=== PATIENT | female | born 1935 | race Caucasian/White ===

== ENCOUNTER 2018-01-28 16:01 | Inpatient (IN) | payer MEDICARE, MEDICAID ==
[~2018-01-28] VITALS: Ht 170.2 cm; Wt 130.0 kg
[~2018-01-28 16:01] MED LIST: DIPH1TAB PO; HYDR-4383 PO; INSU100V13 SQ; LOSA1TAB41 PO; PANT40TA4 PO; PROP20TA6 PO; SPIIN INH
[2018-01-28 16:30] LABS: HEMATOCRIT 39.2 % (35.0-45.0); HEMOGLOBIN 12.9 g/dl (12.0-16.0); MEAN CORPUSCULAR VOLUME 82.6 FL (78-98); RED BLOOD COUNT 4.74 X10'6 (4.20-5.60); WHITE BLOOD COUNT 9.8 X10'3 (4.5-11.0)
[2018-01-28 16:31] LABS: BASOPHILS % (AUTO) 0.4 % (0-1); EOSINOPHILS # (AUTO) 0.4 X10'3 (0-0.9); EOSINOPHILS % (AUTO) 3.6 % (0-6); LYMPHOCYTES # (AUTO) 1.8 X10'3 (1.1-4.8); MEAN CORPUSCULAR HEMOGLOBIN 27.2 PG (27.0-31.0); MONOCYTES # (AUTO) 0.5 X10'3 (0-0.9); NEUTROPHILS # (AUTO) 7.1 X10'3 (1.8-7.7); PLATELET COUNT 308 X10'3 (140-440)
[2018-01-28 16:38] LABS: ALANINE AMINOTRANSFERASE 19 U/L (12-78); ALBUMIN 3.3 G/DL (3.4-5.0); ALBUMIN/GLOBULIN RATIO 0.8 (1.1-1.5); ALKALINE PHOSPHATASE 110 IU/L (46-116); ANION GAP 9 (8-16); ASPARTATE AMINO TRANSFERASE 11 U/L (10-37); BILIRUBIN,TOTAL 0.3 MG/DL (0.1-1.0); BLOOD UREA NITROGEN 18 MG/DL (7-18); CALCIUM 9.1 MG/DL (8.5-10.1); CHLORIDE 103 MMOL/L (99-107); GLUCOSE 182 MG/DL (70-104); SODIUM 138 MMOL/L (135-145); TOTAL PROTEIN 7.2 G/DL (6.4-8.2); eGFR 60 ML/MIN
[2018-01-28 16:50] LABS: PARTIAL THROMBOPLASTIN TIME 28 SECONDS (22-32)
[2018-01-28] MEDS ORDERED: aspirin 81mg tab.chew PO ONE (16:55)
[2018-01-28] MEDS ORDERED: nitroGLYCERIN 0.4mg SUBLingual tab SL PRN ×2 (16:55→17:45)
[2018-01-28] MEDS ORDERED: ondansetron/PF 4mg/2ml inj IV PRN (17:10)
[2018-01-28] MEDS ORDERED: potassium Cl 40MEQ/NS 500ml 500 ML IV PRN ×2 (17:10)
[2018-01-28] MEDS ORDERED: magnesium 4gm in 100ml NS 100 ML IV PRN (17:10)
[2018-01-28] MEDS ORDERED: magnesium hydroxide 30ml (MOM) UD suspension PO PRN (17:10)
[2018-01-28] MEDS ORDERED: morphine 2 MG/ML inj. syringe IV PRN (17:10)
[2018-01-28] MEDS ORDERED: magnesium Cl slow-release 64mg tablet PO PRN (17:10)
[2018-01-28] MEDS ORDERED: potassium Cl 20 mEq SR tablet PO PRN ×2 (17:10)
[2018-01-28] MEDS ORDERED: acetaminophen 325mg tablet PO PRN (17:10)
[2018-01-28] MEDS ORDERED: mag hydrox/Alum hydrox/simeth 30ml oral suspension PO PRN (17:10)
[2018-01-28] MEDS: losartan 50mg tablet PO SCH (17:15)
[2018-01-28] MEDS ORDERED: insulin Lispro (HumaLOG) vial - multi-dose SQ SCH (17:20)
[2018-01-28] MEDS ORDERED: glucagon, human recombinant 1mg kit SUBCUT PRN (17:20)
[2018-01-28] MEDS ORDERED: MESSAGE TO PHARMACY PO ONE (17:20)
[2018-01-28] MEDS ORDERED: dextrose ORAL solution 15 GM/59 ML bottle PO PRN ×2 (17:20)
[2018-01-28] MEDS ORDERED: dextrose 50%-water 50ml dispensing syringe IV PRN ×2 (17:20)
[2018-01-28] MEDS ORDERED: LANTUS SQ (17:32)
[2018-01-28] MEDS ORDERED: DOXE25CA3 PO (17:37)
[2018-01-28] MEDS ORDERED: INSU100V9 SQ (17:39)
[2018-01-28] MEDS ORDERED: LEVE500T PO (17:40)
[2018-01-28] MEDS ORDERED: FAMO40TA58 PO (17:43)
[2018-01-28] MEDS ORDERED: HYDR25TA4 PO (17:43)
[2018-01-28] MEDS ORDERED: METO25TA6 PO (17:43)
[2018-01-28] MEDS ORDERED: POTA10TA15 PO (17:44)
[2018-01-28] MEDS ORDERED: CITA10TA9 PO (17:44)
[2018-01-28] MEDS ORDERED: aminophylline 250mg/10ml inj. IV PRN (17:45)
[2018-01-28] MEDS ORDERED: metoprolol tartrate 1mg/ml inj IV PRN (17:45)
[2018-01-28] MEDS ORDERED: regadenoson 0.4mg/5ml syringe IV PRN (17:45)
[2018-01-28] MEDS ORDERED: HYDR100T27 PO (17:46)
[2018-01-28] MEDS ORDERED: LORA0.5T PO (17:46)
[2018-01-28] MEDS: carVEDilol 12.5mg tablet PO SCH ×2 (18:18→20:00)
[2018-01-28 19:22] LABS: HEMOGLOBIN A1C 7.2 % (4.5-6.2)
[2018-01-28] MEDS ORDERED: VARE0.5T PO (19:58)
[2018-01-28 20:00] VITALS: BP 137/55
[2018-01-28] MEDS ORDERED: insulin glargine (Lantus) pen - multi-dose SQ SCH ×2 (21:00→23:25)
[2018-01-28] MEDS: heparin, porcine 5000 units/ml vial SQ SCH (22:51)
[2018-01-28 23:00] VITALS: BP 140/54
[2018-01-29] VITALS (14 sets, daily range): BP systolic 118–191; BP diastolic 44–68
[2018-01-29] MEDS: varenicline tartrate 0.5mg tablet PO SCH ×2 (00:14→08:24)
[2018-01-29] MEDS: HYDROcodone/acetaminophen 5mg/325mg tablet PO PRN ×2 (00:25→06:14)
[2018-01-29 04:37] LABS: HEMATOCRIT 33.5 % (35.0-45.0); HEMOGLOBIN 11.9 g/dl (12.0-16.0); RED BLOOD COUNT 4.08 X10'6 (4.20-5.60); WHITE BLOOD COUNT 9.6 X10'3 (4.5-11.0)
[2018-01-29 04:38] LABS: BASOPHILS # (AUTO) 0.1 X10'3 (0-0.2); EOSINOPHILS # (AUTO) 0.4 X10'3 (0-0.9); LYMPHOCYTES # (AUTO) 2.1 X10'3 (1.1-4.8); MEAN CORPUSCULAR HGB CONC 35.4 % (33.0-36.5); MEAN PLATELET VOLUME 8.1 FL (7.4-10.4); MONOCYTES # (AUTO) 0.6 X10'3 (0-0.9); MONOCYTES % (AUTO) 6.4 % (2-12); NEUTROPHILS # (AUTO) 6.4 X10'3 (1.8-7.7); NEUTROPHILS % (AUTO) 66.6 % (42-75); PLATELET COUNT 236 X10'3 (140-440); RED CELL DISTRIBUTION WIDTH 15.8 % (11.5-14.5)
[2018-01-29 04:58] LABS: ALANINE AMINOTRANSFERASE 17 U/L (12-78); ALBUMIN/GLOBULIN RATIO 0.9 (1.1-1.5); ALKALINE PHOSPHATASE 94 IU/L (46-116); ANION GAP 9 (8-16); ASPARTATE AMINO TRANSFERASE 14 U/L (10-37); BILIRUBIN,TOTAL 0.2 MG/DL (0.1-1.0); BLOOD UREA NITROGEN 24 MG/DL (7-18); BUN/CREATININE RATIO 26.1 (6.6-38.0); CALCIUM 9.1 MG/DL (8.5-10.1); CHLORIDE 103 MMOL/L (99-107); CREATININE 0.92 MG/DL (0.40-0.90); GLUCOSE 89 MG/DL (70-104); POTASSIUM 3.8 MMOL/L (3.5-5.1); SODIUM 138 MMOL/L (135-145); TOTAL CARBON DIOXIDE 25.6 MMOL/L (24-32); TOTAL PROTEIN 6.5 G/DL (6.4-8.2); eGFR 59 ML/MIN
[2018-01-29 05:01] LABS: MAGNESIUM 1.8 MG/DL (1.5-2.4); PHOSPHORUS 3.8 MG/DL (2.3-4.5)
[2018-01-29] MEDS ORDERED: K and/or MAG REPLACEMENT MC SCH (08:00)
[2018-01-29] MEDS: heparin, porcine 5000 units/ml vial SQ SCH (08:25)
[2018-01-29] MEDS ORDERED: aspirin 81mg tab.chew PO SCH (08:30)
[2018-01-29] MEDS ORDERED: regadenoson 0.4mg/5ml syringe IV ONE (09:36)
[2018-01-29] MEDS ORDERED: aminophylline inj. 10 ML IV ONE (09:36)
[2018-01-29] MEDS: carVEDilol 12.5mg tablet PO SCH (11:13)
[2018-01-29] MEDS: losartan 50mg tablet PO SCH (11:14)
[2018-01-29] MEDS ORDERED: hydrALAZINE 20mg/ml inj. IV ONE (12:35)
[2018-01-29] MEDS ORDERED: insulin glargine (Lantus) pen - multi-dose SQ SCH (20:00)
== END 2018-01-29 13:36 | disposition home health service (06) | DRG 313 ==
LOC: ER 16:02 → ED HOLD 17:09 → PCU 3S 20:23
PROVIDERS: ADMIT Internal Medicine; ATTEND Family Medicine
PROC: 4A02XM4 Measurement of Cardiac Total Activity, External Approach (ICD-10-PCS; principal; 2018-01-29)
PROC: 3E033HZ Introduction of Radioactive Substance into Peripheral Vein, Percutaneous Approach (ICD-10-PCS; 2018-01-29)
DX: R07.89 Other chest pain (principal); F41.9 Anxiety disorder, unspecified; E11.9 Type 2 diabetes mellitus without complications; F17.200 Nicotine dependence, unspecified, uncomplicated; G89.4 Chronic pain syndrome; M54.9 Dorsalgia, unspecified; I10 Essential (primary) hypertension; J44.9 Chronic obstructive pulmonary disease, unspecified; Z95.0 Presence of cardiac pacemaker; Z88.8 Allergy status to other drugs, medicaments and biological substances; Z79.899 Other long term (current) drug therapy; Z79.4 Long term (current) use of insulin; Z87.440 Personal history of urinary (tract) infections; Z86.73 Personal history of transient ischemic attack (TIA), and cerebral infarction without residual deficits
CPT/HCPCS: 36415; 71045; 78452; 80053; 82948; 83036; 83735; 83880; 84100; 84484; 85025; 85610; 85730; 87070; 93005; 93017; 93306; 94760; 99285; A9500; G0378; J0280; J1644; J1815

== ENCOUNTER 2018-06-29 12:04 | Emergency (ER) | payer MEDICARE, MEDICAID ==
[~2018-06-29] VITALS: Ht 162.6 cm; Wt 107.0 kg
[~2018-06-29 12:04] MED LIST changes: +CITA10TA9 PO; -DIPH1TAB PO; +DOXE25CA3 PO; +FAMO40TA58 PO; +HYDR100T27 PO; +HYDR25TA4 PO; +INSU100V9 SQ; +LANTUS SQ; +LEVE500T PO; +LORA0.5T PO; -LOSA1TAB41 PO; +METO25TA6 PO; +POTA10TA15 PO; -PROP20TA6 PO; -SPIIN INH; +VARE0.5T PO
[2018-06-29 13:06] LABS: BASOPHILS # (AUTO) 0.1 X10'3 (0-0.2); BASOPHILS % (AUTO) 0.8 % (0-1); EOSINOPHILS # (AUTO) 0.3 X10'3 (0-0.9); EOSINOPHILS % (AUTO) 2.9 % (0-6); HEMATOCRIT 37.9 % (35.0-45.0); HEMOGLOBIN 12.4 g/dl (12.0-16.0); LYMPHOCYTES # (AUTO) 2.2 X10'3 (1.1-4.8); LYMPHOCYTES % (AUTO) 20.3 % (21-51); MEAN CORPUSCULAR HEMOGLOBIN 27.4 PG (27.0-31.0); MEAN CORPUSCULAR HGB CONC 32.6 g/dL (33.0-36.5); MEAN CORPUSCULAR VOLUME 84.1 FL (78-98); MEAN PLATELET VOLUME 8.1 FL (7.4-10.4); MONOCYTES # (AUTO) 0.7 X10'3 (0-0.9); NEUTROPHILS # (AUTO) 7.7 X10'3 (1.8-7.7); PLATELET COUNT 245 X10'3 (140-440); RED BLOOD COUNT 4.51 X10'6 (4.20-5.60); RED CELL DISTRIBUTION WIDTH 17.7 % (11.5-14.5)
[2018-06-29 13:12] LABS: PARTIAL THROMBOPLASTIN TIME 22 SECONDS (22-32)
[2018-06-29 13:14] LABS: ALANINE AMINOTRANSFERASE 20 U/L (12-78); ALBUMIN 3.4 G/DL (3.4-5.0); ALBUMIN/GLOBULIN RATIO 0.8 (1.1-1.5); ALKALINE PHOSPHATASE 104 IU/L (46-116); ANION GAP 8 (8-16); ASPARTATE AMINO TRANSFERASE 15 U/L (10-37); BILIRUBIN,TOTAL 0.3 MG/DL (0.1-1.0); BLOOD UREA NITROGEN 19 MG/DL (7-18); BUN/CREATININE RATIO 15.6 (6.6-38.0); CALCIUM 9.7 MG/DL (8.5-10.1); CHLORIDE 104 MMOL/L (99-107); CREATININE 1.22 MG/DL (0.40-0.90); GLUCOSE 173 MG/DL (70-104); POTASSIUM 4.2 MMOL/L (3.5-5.1); SODIUM 139 MMOL/L (135-145); TOTAL PROTEIN 7.6 G/DL (6.4-8.2); eGFR 42 ML/MIN
[2018-06-29 13:20] LABS: MAGNESIUM 1.8 MG/DL (1.5-2.4)
[2018-06-29 13:28] VITALS: BP 153/76
--- NOTE | 2018-06-29 13:28 | NUR ---
RELIEVING RN FOR LUNCH, PT IS SITTING UP ON EDGE OF STEPHEN, RESP EVEN AND UNLABORED, TALKING FULL SENTENCES, DR MARCELO AT BEDSIDE TO EVALUATE PT
[2018-06-29] MEDS ORDERED: ipratropium/albuterol 3ml nebule NEB ONE (13:35)
[2018-06-29] MEDS ORDERED: ALBU18HF2 IH (14:16)
== END 2018-06-29 14:39 | disposition home or self-care (01) ==
LOC: ER 12:04
DX: R06.02 Shortness of breath (principal); R05 Cough; M79.89 Other specified soft tissue disorders; I10 Essential (primary) hypertension; E11.9 Type 2 diabetes mellitus without complications; G89.29 Other chronic pain; M54.9 Dorsalgia, unspecified; F17.200 Nicotine dependence, unspecified, uncomplicated; Z86.73 Personal history of transient ischemic attack (TIA), and cerebral infarction without residual deficits; Z95.0 Presence of cardiac pacemaker; Z88.8 Allergy status to other drugs, medicaments and biological substances; Z79.4 Long term (current) use of insulin
CPT/HCPCS: 36415; 71045; 80053; 82948; 83735; 83880; 84484; 85025; 85610; 85730; 93005; 94640; 99284

== ENCOUNTER 2018-12-24 19:58 | Inpatient (IN) | payer MEDICARE, MEDICAID ==
[~2018-12-24] VITALS: Ht 162.6 cm; Wt 109.1 kg
[~2018-12-24 19:58] MED LIST changes: +ALBU18HF2 IH
[2018-12-24] MEDS ORDERED: normal saline 1000ML IV soln IV ONE (21:30)
[2018-12-24] MEDS ORDERED: clindamycin 600mg/D5W 50ml 50 ML IV ONE (21:50)
[2018-12-24 22:12] LABS: BASOPHILS % (AUTO) 0.3 % (0-1); EOSINOPHILS # (AUTO) 0.1 X10'3 (0-0.9); EOSINOPHILS % (AUTO) 0.5 % (0-6); HEMATOCRIT 41.1 % (35.0-45.0); HEMOGLOBIN 13.4 g/dl (12.0-16.0); LYMPHOCYTES # (AUTO) 0.9 X10'3 (1.1-4.8); LYMPHOCYTES % (AUTO) 6.4 % (21-51); MEAN CORPUSCULAR HEMOGLOBIN 27.8 PG (27.0-31.0); MEAN CORPUSCULAR HGB CONC 32.7 g/dL (33.0-36.5); MEAN CORPUSCULAR VOLUME 85.1 FL (78-98); MEAN PLATELET VOLUME 7.8 FL (7.4-10.4); MONOCYTES # (AUTO) 0.5 X10'3 (0-0.9); MONOCYTES % (AUTO) 3.5 % (2-12); NEUTROPHILS # (AUTO) 12.6 X10'3 (1.8-7.7); NEUTROPHILS % (AUTO) 89.3 % (42-75); PLATELET COUNT 243 X10'3 (140-440); RED BLOOD COUNT 4.82 X10'6 (4.20-5.60); RED CELL DISTRIBUTION WIDTH 17.7 % (11.5-14.5); WHITE BLOOD COUNT 14.1 X10'3 (4.5-11.0)
[2018-12-24 22:27] LABS: ALANINE AMINOTRANSFERASE 16 U/L (12-78); ALBUMIN 3.4 G/DL (3.4-5.0); ALBUMIN/GLOBULIN RATIO 0.8 (1.1-1.5); ALKALINE PHOSPHATASE 112 IU/L (46-116); ANION GAP 6 (8-16); ASPARTATE AMINO TRANSFERASE 14 U/L (10-37); BILIRUBIN,TOTAL 0.4 MG/DL (0.1-1.0); BLOOD UREA NITROGEN 18 MG/DL (7-18); BUN/CREATININE RATIO 18.6 (6.6-38.0); CALCIUM 9.1 MG/DL (8.5-10.1); CHLORIDE 102 MMOL/L (99-107); CREATININE 0.97 MG/DL (0.40-0.90); GLUCOSE 127 MG/DL (70-104); POTASSIUM 4.5 MMOL/L (3.5-5.1); SODIUM 138 MMOL/L (135-145); TOTAL CARBON DIOXIDE 29.7 MMOL/L (24-32); TOTAL PROTEIN 7.8 G/DL (6.4-8.2); eGFR 55 ML/MIN
[2018-12-24] MEDS ORDERED: iohexol 300mg/ml 100ml inj. ONE (22:32)
[2018-12-24] MEDS ORDERED: normal saline 1000ML IV soln IVB ONE (22:40)
[2018-12-25] MEDS ORDERED: HYDR-4070 PO (01:57)
[2018-12-25] MEDS ORDERED: NITR0.4T48 SL (01:57)
[2018-12-25] MEDS ORDERED: ASPI-1264 PO (01:57)
[2018-12-25] MEDS ORDERED: FURO-150 PO (01:57)
[2018-12-25] MEDS ORDERED: LOSA1TAB41 PO (01:57)
[2018-12-25] MEDS ORDERED: VIT1CAPS46 PO (01:57)
[2018-12-25] MEDS ORDERED: MELO-102 PO (01:57)
[2018-12-25] MEDS ORDERED: MYCOL30CR TP (01:57)
[2018-12-25] MEDS ORDERED: normal saline 1000ml 1,000 ML IV SCH (02:03)
[2018-12-25] MEDS ORDERED: magnesium hydroxide 30ml (MOM) UD suspension PO PRN (02:05)
[2018-12-25] MEDS ORDERED: mag hydrox/Alum hydrox/simeth 30ml oral suspension PO PRN (02:05)
[2018-12-25] MEDS ORDERED: ondansetron/PF 4mg/2ml inj IV PRN (02:05)
[2018-12-25] MEDS ORDERED: acetaminophen 325mg tablet PO PRN (02:05)
[2018-12-25] MEDS ORDERED: potassium Cl 20 mEq SR tablet PO PRN ×2 (02:05)
[2018-12-25] MEDS ORDERED: HYDROcodone/acetaminophen 5mg/325mg tablet PO PRN (02:05)
[2018-12-25] MEDS ORDERED: dextrose 50%-water 50ml dispensing syringe IV PRN ×2 (02:10)
[2018-12-25] MEDS ORDERED: glucagon, human recombinant 1mg kit SUBCUT PRN (02:10)
[2018-12-25] MEDS ORDERED: insulin Lispro (HumaLOG) vial - multi-dose SQ SCH (02:10)
[2018-12-25] MEDS ORDERED: nitroGLYCERIN 0.4mg SUBLingual tab SL PRN (02:10)
[2018-12-25] MEDS ORDERED: dextrose ORAL solution 15 GM/59 ML bottle PO PRN ×2 (02:10)
[2018-12-25] MEDS ORDERED: MESSAGE TO PHARMACY PO ONE (02:10)
[2018-12-25 03:00] VITALS: BP 147/55
--- NOTE | 2018-12-25 03:00 | NUR ---
PT ARRIVED TO 4023B FROM ER. PT HAS BEEN ORIENTED TO THE ROOM. VSS. RECEIVED REPRORT FROM LOU FRAUSTO PRIOR TO PT'S ARRIVAL.
[2018-12-25 03:50] LABS: HEMOGLOBIN A1C 6.5 % (4.5-6.2)
[2018-12-25 06:00] VITALS: BP 140/44
--- NOTE | 2018-12-25 06:22 | NUR ---
Problems reprioritized. Patient report given, questions answered & plan of care reviewed with LOU ROMERO.
--- NOTE | 2018-12-25 06:54 | NUR ---
Patient in room ORTHO 4023. I have received report from Anneliese BLAKE and had the opportunity to ask questions and assume patient care.
[2018-12-25] MEDS: K and/or MAG REPLACEMENT MC SCH (07:46)
[2018-12-25] MEDS: levetiracetam 250mg tablet PO SCH ×2 (07:56→19:41)
[2018-12-25] MEDS: furosemide 20MG tablet PO SCH (07:56)
[2018-12-25] MEDS: hydrALAZINE 25 MG tablet PO SCH ×2 (07:56→15:45)
[2018-12-25] MEDS: aspirin 325mg tablet PO SCH ×2 (07:56→19:41)
[2018-12-25] MEDS: CITALOpram 10mg tablet PO SCH (07:57)
[2018-12-25] MEDS: HYDROchlorothiazide 12.5mg capsule PO SCH (07:57)
[2018-12-25] MEDS: potassium chloride 10mEq ER tablet PO SCH (07:58)
[2018-12-25] MEDS: famotidine 20mg tablet PO SCH (07:58)
[2018-12-25] MEDS: metoprolol tartrate 25mg tablet PO SCH ×2 (07:58→19:41)
[2018-12-25] MEDS: losartan 50mg tablet PO SCH (07:58)
[2018-12-25] MEDS: heparin, porcine 5000 units/ml vial SQ SCH ×2 (08:00→19:42)
[2018-12-25] MEDS: clindamycin 600mg/D5W 50ml 50 ML IV SCH ×3 (08:01→19:40)
[2018-12-25 10:00] VITALS: BP 141/46
[2018-12-25 10:24] LABS: BASOPHILS % (AUTO) 0.3 % (0-1); EOSINOPHILS # (AUTO) 0.1 X10'3 (0-0.9); EOSINOPHILS % (AUTO) 0.8 % (0-6); HEMATOCRIT 36.5 % (35.0-45.0); HEMOGLOBIN 11.8 g/dl (12.0-16.0); LYMPHOCYTES # (AUTO) 1.3 X10'3 (1.1-4.8); LYMPHOCYTES % (AUTO) 10.5 % (21-51); MEAN CORPUSCULAR HEMOGLOBIN 27.6 PG (27.0-31.0); MEAN CORPUSCULAR HGB CONC 32.4 g/dL (33.0-36.5); MEAN PLATELET VOLUME 7.6 FL (7.4-10.4); MONOCYTES # (AUTO) 0.9 X10'3 (0-0.9); MONOCYTES % (AUTO) 6.9 % (2-12); NEUTROPHILS # (AUTO) 10.3 X10'3 (1.8-7.7); NEUTROPHILS % (AUTO) 81.5 % (42-75); PLATELET COUNT 259 X10'3 (140-440); RED BLOOD COUNT 4.29 X10'6 (4.20-5.60); RED CELL DISTRIBUTION WIDTH 17.4 % (11.5-14.5); WHITE BLOOD COUNT 12.7 X10'3 (4.5-11.0)
[2018-12-25 10:39] LABS: ALANINE AMINOTRANSFERASE 12 U/L (12-78); ALBUMIN 2.8 G/DL (3.4-5.0); ALBUMIN/GLOBULIN RATIO 0.7 (1.1-1.5); ALKALINE PHOSPHATASE 94 IU/L (46-116); ANION GAP 4 (8-16); ASPARTATE AMINO TRANSFERASE 8 U/L (10-37); BILIRUBIN,TOTAL 0.6 MG/DL (0.1-1.0); BLOOD UREA NITROGEN 16 MG/DL (7-18); BUN/CREATININE RATIO 15.1 (6.6-38.0); CALCIUM 8.8 MG/DL (8.5-10.1); CHLORIDE 103 MMOL/L (99-107); CREATININE 1.06 MG/DL (0.40-0.90); GLUCOSE 157 MG/DL (70-104); POTASSIUM 4.4 MMOL/L (3.5-5.1); SODIUM 138 MMOL/L (135-145); TOTAL CARBON DIOXIDE 31.2 MMOL/L (24-32); TOTAL PROTEIN 6.8 G/DL (6.4-8.2); eGFR 50 ML/MIN
--- NOTE | 2018-12-25 10:46 | NUR ---
Student documentation: I have reviewed all interventions, assessments performed and [facility] Student Medication Administration: For this medication-pass time frame, all medication were reviewed, dispensed, administered and documented per hospital policy [facility].
[2018-12-25] MEDS: HYDROcodone/acetaminophen 10/325mg tab PO PRN ×2 (12:01→19:41)
[2018-12-25] MEDS ORDERED: nicotine 14mg patch - 24hr TD PRN (13:50)
[2018-12-25 18:00] VITALS: BP 139/48
--- NOTE | 2018-12-25 18:28 | NUR ---
Problems reprioritized. Patient report given, questions answered & plan of care reviewed with Selvin BLAKE.
--- NOTE | 2018-12-25 18:30 | NUR ---
Received report from Connor BLAKE pt is up walking with aide back to bed from the bathroom
[2018-12-25] MEDS: lactobacillus rhamnosus 10,000 MMU CELLS/CAPSULE PO SCH (19:40)
[2018-12-25] MEDS: insulin glargine (Lantus) pen - multi-dose SQ SCH (21:00)
[2018-12-25 22:00] VITALS: BP 124/51
[2018-12-26] MEDS: hydrALAZINE 25 MG tablet PO SCH ×3 (00:19→17:28)
[2018-12-26] MEDS: clindamycin 600mg/D5W 50ml 50 ML IV SCH ×4 (01:54→19:35)
[2018-12-26] MEDS: HYDROcodone/acetaminophen 10/325mg tab PO PRN ×4 (04:59→19:42)
[2018-12-26 06:00] VITALS: BP 126/42
[2018-12-26 06:10] LABS: BASOPHILS % (AUTO) 0.3 % (0-1); EOSINOPHILS # (AUTO) 0.2 X10'3 (0-0.9); EOSINOPHILS % (AUTO) 2.3 % (0-6); HEMOGLOBIN 11.6 g/dl (12.0-16.0); LYMPHOCYTES # (AUTO) 1.6 X10'3 (1.1-4.8); LYMPHOCYTES % (AUTO) 17.3 % (21-51); MEAN CORPUSCULAR HEMOGLOBIN 28.2 PG (27.0-31.0); MEAN CORPUSCULAR HGB CONC 33.1 g/dL (33.0-36.5); MEAN CORPUSCULAR VOLUME 85.1 FL (78-98); MEAN PLATELET VOLUME 7.9 FL (7.4-10.4); MONOCYTES # (AUTO) 0.8 X10'3 (0-0.9); MONOCYTES % (AUTO) 8.1 % (2-12); NEUTROPHILS # (AUTO) 6.8 X10'3 (1.8-7.7); PLATELET COUNT 233 X10'3 (140-440); RED BLOOD COUNT 4.11 X10'6 (4.20-5.60); RED CELL DISTRIBUTION WIDTH 17.7 % (11.5-14.5); WHITE BLOOD COUNT 9.5 X10'3 (4.5-11.0)
--- NOTE | 2018-12-26 06:27 | NUR ---
Gave report to Lulu BLAKE pt is resting on 2L of O2 via NC in no apparent distress, breaths even and unlabored
[2018-12-26 06:37] LABS: ALANINE AMINOTRANSFERASE 13 U/L (12-78); ALBUMIN 2.9 G/DL (3.4-5.0); ALBUMIN/GLOBULIN RATIO 0.7 (1.1-1.5); ALKALINE PHOSPHATASE 95 IU/L (46-116); ANION GAP 6 (8-16); ASPARTATE AMINO TRANSFERASE 11 U/L (10-37); BILIRUBIN,TOTAL 0.5 MG/DL (0.1-1.0); BLOOD UREA NITROGEN 24 MG/DL (7-18); BUN/CREATININE RATIO 22.2 (6.6-38.0); CALCIUM 8.9 MG/DL (8.5-10.1); CHLORIDE 102 MMOL/L (99-107); CREATININE 1.08 MG/DL (0.40-0.90); GLUCOSE 81 MG/DL (70-104); POTASSIUM 3.8 MMOL/L (3.5-5.1); SODIUM 138 MMOL/L (135-145); TOTAL CARBON DIOXIDE 29.6 MMOL/L (24-32); TOTAL PROTEIN 7.1 G/DL (6.4-8.2); eGFR 49 ML/MIN
[2018-12-26] MEDS: K and/or MAG REPLACEMENT MC SCH (08:00)
[2018-12-26] MEDS: famotidine 20mg tablet PO SCH (08:01)
[2018-12-26] MEDS: aspirin 325mg tablet PO SCH ×2 (08:01→19:36)
[2018-12-26] MEDS: losartan 50mg tablet PO SCH (08:01)
[2018-12-26] MEDS: CITALOpram 10mg tablet PO SCH (08:02)
[2018-12-26] MEDS: furosemide 20MG tablet PO SCH (08:02)
[2018-12-26] MEDS: HYDROchlorothiazide 12.5mg capsule PO SCH (08:03)
[2018-12-26] MEDS: potassium chloride 10mEq ER tablet PO SCH (08:03)
[2018-12-26] MEDS: lactobacillus rhamnosus 10,000 MMU CELLS/CAPSULE PO SCH ×2 (08:04→19:43)
[2018-12-26] MEDS: levetiracetam 250mg tablet PO SCH ×2 (08:04→19:37)
[2018-12-26] MEDS: metoprolol tartrate 25mg tablet PO SCH ×2 (08:16→19:41)
[2018-12-26] MEDS: heparin, porcine 5000 units/ml vial SQ SCH ×2 (08:18→19:42)
[2018-12-26 09:49] VITALS: BP 136/51
[2018-12-26 18:00] VITALS: BP 130/50
--- NOTE | 2018-12-26 18:25 | NUR ---
Problems reprioritized. Patient report given, questions answered & plan of care reviewed with Lizz Celeste RN.
[2018-12-26] MEDS: insulin glargine (Lantus) pen - multi-dose SQ SCH (21:00)
[2018-12-26 22:00] VITALS: BP 105/32
--- NOTE | 2018-12-27 00:13 | NUR ---
PATIENT HAS BP OF 100/26 HR 61 PAGER ID: [phone] MESSAGE: PLEASE CALL JALNY AT EXT [phone] RE: [id number] MEDICATION QUESTION STATED TO HOLD MEDICATION AT THIS TIME, BUT TO ADDRESS PLACING PARAMETERS WITH AM HOSPITALIST.
[2018-12-27] MEDS: clindamycin 600mg/D5W 50ml 50 ML IV SCH ×3 (01:55→14:00)
--- NOTE | 2018-12-27 02:44 | NUR ---
reviewed and agree with SRN assessment
--- NOTE | 2018-12-27 05:55 | NUR ---
When tech attempted to take AM vitals, pt became agitated and began stating that she feels that she doesnt want to trust staff. Pt became agitated with any attempts to provide care. Attempted to place oxygen, pt refused. Attempted to asses as to whether IV had infiltrated and pt also refused. Pt refused to return to bed. Charge nurse called daughter and had pt speak to daughter. Pt verbally assaultive towards staff.
[2018-12-27 06:00] VITALS: BP 136/44
--- NOTE | 2018-12-27 06:26 | NUR ---
Problems reprioritized. Patient report given, questions answered & plan of care reviewed with LOU Rai .
[2018-12-27] MEDS: K and/or MAG REPLACEMENT MC SCH (08:00)
[2018-12-27 10:00] VITALS: BP 154/79
[2018-12-27] MEDS: hydrALAZINE 25 MG tablet PO SCH ×2 (10:17)
[2018-12-27] MEDS: furosemide 20MG tablet PO SCH (10:17)
[2018-12-27] MEDS: famotidine 20mg tablet PO SCH (10:18)
[2018-12-27] MEDS: aspirin 325mg tablet PO SCH (10:18)
[2018-12-27] MEDS: heparin, porcine 5000 units/ml vial SQ SCH (10:19)
[2018-12-27] MEDS: CITALOpram 10mg tablet PO SCH (10:19)
[2018-12-27 10:23] VITALS: BP_SYST 154
[2018-12-27] MEDS: potassium chloride 10mEq ER tablet PO SCH (10:23)
[2018-12-27] MEDS: HYDROcodone/acetaminophen 10/325mg tab PO PRN ×2 (10:23→14:09)
[2018-12-27] MEDS: metoprolol tartrate 25mg tablet PO SCH (10:23)
[2018-12-27] MEDS: HYDROchlorothiazide 12.5mg capsule PO SCH (10:23)
[2018-12-27] MEDS: losartan 50mg tablet PO SCH (10:24)
[2018-12-27] MEDS: levetiracetam 250mg tablet PO SCH (10:24)
[2018-12-27] MEDS: lactobacillus rhamnosus 10,000 MMU CELLS/CAPSULE PO SCH (10:25)
--- NOTE | 2018-12-27 14:23 | NUR ---
PAGER ID: [phone] MESSAGE: SOURAV [phone] RE KATRIN BARBER IN 4020B, IV INFILTRATED CAN WE SWITCH ABX TO PO? THANK YOU.
[2018-12-27] MEDS ORDERED: clindamycin 150mg capsule PO ONE (14:30)
[2018-12-27] MEDS ORDERED: NICO-631 TD (15:04)
[2018-12-27] MEDS ORDERED: CLE150C PO (15:04)
--- NOTE | 2018-12-27 15:37 | NUR ---
called in rx's to [address]
== END 2018-12-27 15:54 | disposition home or self-care (01) | DRG 158 ==
LOC: ER 19:59 → ED HOLD 12-25 02:17 → EDBEDREQ 12-25 02:24 → CMPBEDREQ 12-25 02:39 → ORTHO 4S 12-25 02:40
PROVIDERS: ADMIT Internal Medicine; ATTEND Family Medicine
PROC: BN251ZZ Computerized Tomography (CT Scan) of Facial Bones using Low Osmolar Contrast (ICD-10-PCS; principal; 2018-12-24)
DX: K04.7 Periapical abscess without sinus (principal); L03.211 Cellulitis of face; E11.69 Type 2 diabetes mellitus with other specified complication; I25.10 Atherosclerotic heart disease of native coronary artery without angina pectoris; E11.22 Type 2 diabetes mellitus with diabetic chronic kidney disease; F17.200 Nicotine dependence, unspecified, uncomplicated; F32.9 Major depressive disorder, single episode, unspecified; R09.02 Hypoxemia; M19.90 Unspecified osteoarthritis, unspecified site; M54.9 Dorsalgia, unspecified; E11.21 Type 2 diabetes mellitus with diabetic nephropathy; K21.9 Gastro-esophageal reflux disease without esophagitis; G89.29 Other chronic pain; I12.9 Hypertensive chronic kidney disease with stage 1 through stage 4 chronic kidney disease, or unspecified chronic kidney disease; N18.9 Chronic kidney disease, unspecified; R13.10 Dysphagia, unspecified; Z79.4 Long term (current) use of insulin; Z79.82 Long term (current) use of aspirin; Z79.899 Other long term (current) drug therapy; Z86.011 Personal history of benign neoplasm of the brain; Z86.73 Personal history of transient ischemic attack (TIA), and cerebral infarction without residual deficits; Z95.0 Presence of cardiac pacemaker; Z88.8 Allergy status to other drugs, medicaments and biological substances
CPT/HCPCS: 36415; 70487; 71045; 80053; 82948; 83036; 83605; 85025; 85610; 87040; 87081; 96361; 96365; 97112; 97116; 97161; 97530; 99285; G0378; J1644; J1815; J2405; J3490; J7030; Q9967

== ENCOUNTER 2019-02-24 07:43 | Emergency (ER) | payer MEDICARE, MEDICAID ==
[~2019-02-24] VITALS: Ht 170.2 cm; Wt 109.1 kg
[~2019-02-24 07:43] MED LIST changes: -ALBU18HF2 IH; +ASPI-1264 PO; +CLE150C PO; -DOXE25CA3 PO; +FURO-150 PO; +HYDR-4070 PO; -HYDR100T27 PO; -LORA0.5T PO; +LOSA1TAB41 PO; +MYCOL30CR TP; +NICO-631 TD; +NITR0.4T48 SL; -VARE0.5T PO; +VIT1CAPS46 PO
[2019-02-24] MEDS ORDERED: TETanus/Pertussis (Acell)/Diphther VAC/PF (Tdap-Adult) 0.5ml syringe IMVAC ONE (08:15)
[2019-02-24] MEDS ORDERED: BUPIVAcaine/PF 7.5 mg/ml (0.75%) 30ml vial IJ ONE (08:15)
[2019-02-24] MEDS ORDERED: BUPIVAcaine/PF 2.5mg/ml (0.25%) 10ml vial IJ ONE (08:25)
[2019-02-24] MEDS ORDERED: LORazepam 2 mg/ml vial IM ONE (09:25)
[2019-02-24] MEDS ORDERED: fentaNYL/PF 50MCG/1 ML 2ML syringe IM ONE (09:25)
--- NOTE | 2019-02-24 09:59 | NUR ---
PA NOTIFIED OF BP
[2019-02-24 11:39] LABS: BASOPHILS # (AUTO) 0.1 X10'3 (0-0.2); BASOPHILS % (AUTO) 0.5 % (0-1); EOSINOPHILS # (AUTO) 0.1 X10'3 (0-0.9); EOSINOPHILS % (AUTO) 0.7 % (0-6); HEMATOCRIT 39.6 % (35.0-45.0); HEMOGLOBIN 12.9 g/dl (12.0-16.0); LYMPHOCYTES % (AUTO) 6.8 % (21-51); MEAN CORPUSCULAR HEMOGLOBIN 27.1 PG (27.0-31.0); MEAN CORPUSCULAR HGB CONC 32.6 g/dL (33.0-36.5); MEAN PLATELET VOLUME 7.8 FL (7.4-10.4); MONOCYTES # (AUTO) 0.8 X10'3 (0-0.9); MONOCYTES % (AUTO) 5.3 % (2-12); NEUTROPHILS # (AUTO) 12.9 X10'3 (1.8-7.7); NEUTROPHILS % (AUTO) 86.7 % (42-75); PLATELET COUNT 272 X10'3 (140-440); RED BLOOD COUNT 4.77 X10'6 (4.20-5.60); RED CELL DISTRIBUTION WIDTH 18.2 % (11.5-14.5); WHITE BLOOD COUNT 14.9 X10'3 (4.5-11.0)
[2019-02-24] MEDS ORDERED: CLINDAMYCIN/D5W 900mg/50ml 50 ML IV ONE (11:40)
[2019-02-24 11:53] LABS: ALANINE AMINOTRANSFERASE 22 U/L (12-78); ALBUMIN 3.5 G/DL (3.4-5.0); ALBUMIN/GLOBULIN RATIO 0.8 (1.1-1.5); ALKALINE PHOSPHATASE 117 IU/L (46-116); ANION GAP 8 (8-16); ASPARTATE AMINO TRANSFERASE 16 U/L (10-37); BILIRUBIN,TOTAL 0.6 MG/DL (0.1-1.0); BLOOD UREA NITROGEN 15 MG/DL (7-18); BUN/CREATININE RATIO 15.2 (6.6-38.0); CALCIUM 9.3 MG/DL (8.5-10.1); CHLORIDE 101 MMOL/L (99-107); CREATININE 0.99 MG/DL (0.40-0.90); GLUCOSE 94 MG/DL (70-104); POTASSIUM 4.2 MMOL/L (3.5-5.1); SODIUM 139 MMOL/L (135-145); TOTAL CARBON DIOXIDE 29.8 MMOL/L (24-32); TOTAL PROTEIN 7.8 G/DL (6.4-8.2); eGFR 54 ML/MIN
[2019-02-24] MEDS ORDERED: dexamethasone sod phosphate 10mg/ml inj IV STA (12:14)
[2019-02-24] MEDS ORDERED: CefTRIAXone 2gm/D5W 50ml 50 ML IV ONE (12:15)
[2019-02-24] MEDS ORDERED: sterile talc powder 5 GM, BUPIVAcaine 0.5% inj/PF 37.5 MG in normal saline 50ml IV soln... IPL ONE (12:15)
[2019-02-24] MEDS ORDERED: BUPIVAcaine 0.5% inj/PF 30 ml vial IJ ONE (12:25)
[2019-02-24] MEDS ORDERED: NICO-731 TOP (13:34)
[2019-02-24] MEDS ORDERED: LEVO150T8 PO (13:35)
[2019-02-24] MEDS ORDERED: INSU100V9 SQ (13:39)
[2019-02-24] MEDS ORDERED: ATOR40TA72 PO (13:39)
[2019-02-24] MEDS ORDERED: NYSPWD PO (13:39)
[2019-02-24] MEDS ORDERED: CLIN150C8 PO (13:42)
[2019-02-24] MEDS ORDERED: DEXA6TAB6 PO (13:42)
--- NOTE | 2019-02-24 14:06 | NUR ---
CALLED PHARMACY FOR CLEOCIN IV
--- NOTE | 2019-02-24 14:09 | NUR ---
JUST RECEIVED CLEOCIN FROM PHARMACY
[2019-02-24 15:28] VITALS: BP 134/62
--- NOTE | 2019-02-24 15:29 | NUR ---
REVIEW DC INSTRUCTIONS WITH PT AND FAMILY AND CAREGIVER. ASSIST PT WITH GETTING DRESSED AND THEN INTO A W/C. HEAT AND VENT AIRCRAFT MECHANIC IN ROOM TO TAKE PT OUT TO CARE VIA W/C.
== END 2019-02-24 15:33 | disposition home or self-care (01) ==
LOC: ER 07:44
DX: K04.7 Periapical abscess without sinus (principal); R22.0 Localized swelling, mass and lump, head; I10 Essential (primary) hypertension; E11.9 Type 2 diabetes mellitus without complications; G89.29 Other chronic pain; Z88.8 Allergy status to other drugs, medicaments and biological substances; Z79.2 Long term (current) use of antibiotics; Z79.4 Long term (current) use of insulin; Z79.899 Other long term (current) drug therapy
CPT/HCPCS: 36415; 41800; 70486; 71045; 80053; 83605; 84145; 85025; 87040; 90471; 90715; 96365; 96367; 96372; 96375; 99285; J0696; J1100; J2060; J3010; J3490

== ENCOUNTER 2021-08-31 07:53 | Inpatient (IN) | payer MEDICARE, MEDICAID ==
[~2021-08-31] VITALS: Ht 154.9 cm; Wt 98.9 kg
[~2021-08-31 07:53] MED LIST changes: -ASPI-1264 PO; +ATOR40TA72 PO; -CITA10TA9 PO; +CITA10TA93 PO; -CLE150C PO; +CLIN150C8 PO; +DEXA6TAB6 PO; -INSU100V13 SQ; -LANTUS SQ; +LEVO150T8 PO; +LOP25T PO; -METO25TA6 PO; -MYCOL30CR TP; -NICO-631 TD; +NICO-731 TOP; +NYSPWD PO; -PANT40TA4 PO; +PANT40TA54 PO
[2021-08-31] MEDS ORDERED: normal saline 1000ml 1,000 ML IV ONE (08:15)
[2021-08-31 08:52] LABS: ABG BASE EXCESS -2.5 mmol/L (-2.0-2.0); ABG HCO3 19.8 mmol/L (22.0-26.0); ABG PCO2 (T) 29.2 mmHg (32.0-45.0); ABG PO2 (T) 70.7 mmHg (75.0-100.0); ALLEN'S TEST POSITIVE; FCOHb 0.3 % (0.0-3.9); FLOW 3 L/min; FMetHb 0.2 % (0.0-1.5); FO2Hb 92.5 % (94-97); PATIENT TEMPERATURE 37.9; TOTAL HEMOGLOBIN 14.9 G/dl (12.0-16.0)
--- NOTE | 2021-08-31 08:57 | NUR ---
PT RECIVIED 1L OF N.S ENROUTE AND PT HAS TEMP OF 100.3. PER DR MCLAIN HOLD THE IV FLUID AND HE WILL ORDER TYLENOL.
[2021-08-31] MEDS ORDERED: acetaminophen 325mg tablet PO ONE (09:00)
[2021-08-31 09:33] LABS: BASOPHILS % (AUTO) 0.1 % (0-1); EOSINOPHILS % (AUTO) 0 % (0-6); HEMATOCRIT 41.9 % (35.0-45.0); LYMPHOCYTES # (AUTO) 0.5 X10'3 (1.1-4.8); MEAN CORPUSCULAR HEMOGLOBIN 28.5 PG (27.0-31.0); MEAN CORPUSCULAR HGB CONC 33.5 g/dL (33.0-36.5); MEAN PLATELET VOLUME 8.6 FL (7.4-10.4); MONOCYTES # (AUTO) 0.6 X10'3 (0-0.9); MONOCYTES % (AUTO) 4.9 % (2-12); NEUTROPHILS # (AUTO) 10.9 X10'3 (1.8-7.7); PLATELET COUNT 194 X10'3 (140-440); RED BLOOD COUNT 4.93 X10'6 (4.20-5.60); RED CELL DISTRIBUTION WIDTH 16.7 % (11.5-14.5)
[2021-08-31 09:43] LABS: D-DIMER 2.72 MG/L FEU (0-0.50)
[2021-08-31 10:03] LABS: ALANINE AMINOTRANSFERASE 27 U/L (12-78); ALBUMIN 2.6 G/DL (3.4-5.0); ALBUMIN/GLOBULIN RATIO 0.6 (1.1-1.5); ALKALINE PHOSPHATASE 69 IU/L (46-116); ANION GAP 13 (8-16); ASPARTATE AMINO TRANSFERASE 46 U/L (10-37); BILIRUBIN,TOTAL 0.7 MG/DL (0.1-1.0); BLOOD UREA NITROGEN 13 MG/DL (7-18); BUN/CREATININE RATIO 13.1 (6.6-38.0); CHLORIDE 100 MMOL/L (99-107); CREATININE 0.99 MG/DL (0.40-0.90); GLUCOSE 193 MG/DL (70-104); MAGNESIUM 1.9 MG/DL (1.5-2.4); POTASSIUM 3.5 MMOL/L (3.5-5.1); SODIUM 136 MMOL/L (135-145); TOTAL CARBON DIOXIDE 22.6 MMOL/L (24-32); TOTAL PROTEIN 7.2 G/DL (6.4-8.2); eGFR 53 ML/MIN
[2021-08-31 10:29] LABS: ANISOCYTOSIS 1+; PLATELET ESTIMATE NORMAL; TOTAL CELLS COUNTED 100
[2021-08-31] MEDS ORDERED: iohexol 350MG/ML 100ml bottle IV ONE (10:37)
--- NOTE | 2021-08-31 10:37 | NUR ---
NOTIFIED DR MCLAIN THAT PT IS POSITIVE FOR COVID.
[2021-08-31] MEDS ORDERED: dexamethasone sod phosphate 10mg/ml inj IV STA (10:38)
[2021-08-31] MEDS ORDERED: BEBTELOVIMAB 175 MG/2 ML VIAL IV ONE (10:40)
--- NOTE | 2021-08-31 11:06 | NUR ---
SPOKE TO [facility] TO VERIFY THE ANTIVIRAL MED{BEBTELOVIMAB} PT IS SICK FOR 4 DAYS ,REQUIRING 02 AND WILL BE ADMITTED TO THE HOSPITAL PER PHARMACIST THIS MEDICATION IS NOT RECOMMENED FOR THE PT ,NOTIFIED DR MCLAIN.VERBAL ORDER TO D/C THE MEDS.
[2021-08-31] MEDS ORDERED: enoxaparin 100mg/ml syringe SUBCUT ONE (13:00)
[2021-08-31] MEDS ORDERED: FAMO40TA58 PO (13:57)
[2021-08-31] MEDS ORDERED: POTA10CA44 PO (13:57)
[2021-08-31] MEDS ORDERED: PRIM50TA27 PO (13:57)
[2021-08-31] MEDS ORDERED: ASPI-10 PO (13:57)
[2021-08-31] MEDS ORDERED: ATOR40TA7 PO (13:57)
[2021-08-31] MEDS ORDERED: HYDR-3965 PO (13:57)
[2021-08-31] MEDS ORDERED: FURO-149 PO (13:57)
[2021-08-31] MEDS ORDERED: LOSA1TAB41 PO (13:57)
[2021-08-31] MEDS ORDERED: BETA1TAB20 PO (13:57)
[2021-08-31] MEDS ORDERED: NITR0.4T51 SL (13:57)
[2021-08-31] MEDS ORDERED: MYC15CR TOP (13:57)
[2021-08-31] MEDS ORDERED: METO25TA6 PO (13:57)
[2021-08-31] MEDS ORDERED: CITA-116 PO (13:57)
[2021-08-31] MEDS ORDERED: LEVE500T PO (13:57)
[2021-08-31] MEDS ORDERED: HYDR100T27 PO (13:57)
[2021-08-31] MEDS ORDERED: MELO-102 PO (13:57)
[2021-08-31] MEDS ORDERED: ondansetron/PF 4mg/2ml inj IV PRN (14:50)
[2021-08-31] MEDS ORDERED: PERFLUTREN PROTEIN-A MICROSPHR (Optison) 0.22 MG/ML 3ML VIAL IV ONE (14:50)
[2021-08-31] MEDS ORDERED: magnesium Cl slow-release 64mg tablet PO PRN (14:50)
[2021-08-31] MEDS ORDERED: acetaminophen 325mg tablet PO PRN (14:50)
[2021-08-31] MEDS ORDERED: POTASSIUM BICARB 20meq eff tab 20 MEQ TABLET.EFF PO PRN ×2 (14:50)
[2021-08-31] MEDS ORDERED: magnesium hydroxide 30ml (MOM) UD suspension PO PRN (14:50)
[2021-08-31] MEDS ORDERED: potassium CL 10mEq/100ml bag 100 ML IV PRN (14:50)
[2021-08-31] MEDS ORDERED: magnesium 4gm in 100ml NS 100 ML IV PRN (14:50)
[2021-08-31] MEDS ORDERED: magnesium 2GM in 50ml NS 50 ML IV PRN (14:50)
[2021-08-31] MEDS ORDERED: mag hydrox/Alum hydrox/simeth 30ml oral suspension PO PRN (14:50)
[2021-08-31 16:28] LABS: CLARITY,URINE SLIGHTLY CLOUDY (Clear); COLOR,URINE YELLOW (Yellow); GLUCOSE, URINE NEGATIVE (Neg); KETONES,URINE 40 mg/dl (Neg); LEUKOCYTE ESTERASE ,URINE NEGATIVE (Neg); NITRITES, URINE POSITIVE (Neg); OCCULT BLOOD,URINE MODERATE (Neg); PROTEIN,URINE >=300 mg/dl (Neg); UROBILINOGEN,URINE 0.2 E.U/dL (0.2-1.0)
[2021-08-31 16:30] LABS: UA COLLECTION TYPE VOIDED
[2021-08-31 16:36] LABS: BACTERIA,URINE 4+ /HPF (Neg); MUCUS STRANDS FEW /LPF (Neg); RBC,URINE 0-2 /HPF (0-2); RENAL CELLS, URINE FEW /HPF; SQUAMOUS EPITHELIAL CELL,UR FEW /LPF (FEW)
[2021-08-31 16:37] LABS: HYALINE CASTS 0-3 /LPF (NEGATIVE)
[2021-08-31 16:45] LABS: MAGNESIUM 1.7 MG/DL (1.5-2.4); POTASSIUM 3.5 MMOL/L (3.5-5.1)
[2021-08-31] MEDS ORDERED: nitroGLYCERIN 0.4mg SUBLingual tab SL PRN (16:45)
[2021-08-31] MEDS ORDERED: furosemide 40mg tablet PO PRN (16:45)
--- NOTE | 2021-08-31 17:29 | NUR ---
CALLED PHARMACY TO VERIFY PT HOME MEDS AND SCHEDULE THE ANTIHYPERTENSIVE MEDS FOR RGT NOW PT BP IS HIGH AND SHE HAS MISSED HER DOSE TODAY.
[2021-08-31] MEDS: CefTRIAXone/D5W-Rocephin 1gm 50 ML IV SCH (17:44)
[2021-08-31] MEDS: normal saline 1000ml 1,000 ML IV SCH (17:44)
[2021-08-31] MEDS ORDERED: REMDESIVIR INJ 200 MG in normal saline 100ml IV soln 100 ML IV ONE (19:15)
--- NOTE | 2021-08-31 19:23 | NUR ---
PT arrived on unit. Pt in bed. BLL, call light within reach, frequently used items in reach, frequent rounding, solution mixer socks applied. Will continue to [facility].
[2021-08-31 20:00] VITALS: BP 187/90
[2021-08-31] MEDS ORDERED: non-formulary drug (Vit A/Vit C/Vit E/Zinc/Copper (Preservision Tablet) 1 TAB) PO SCH (20:00)
[2021-08-31 20:02] LABS: HEMOGLOBIN A1C 6.5 % (4.5-6.2)
[2021-08-31] MEDS: docusate sod 100mg capsule PO SCH (20:05)
[2021-08-31] MEDS: levetiracetam 250mg tablet PO SCH (20:05)
[2021-08-31] MEDS: enoxaparin 40mg/0.4ml syringe SUBCUT SCH (20:05)
[2021-08-31] MEDS: famotidine 20mg tablet PO SCH (20:05)
[2021-08-31] MEDS: aspirin 325mg tablet, delayed-release (Ecotrin) PO SCH (20:06)
[2021-08-31] MEDS: metoprolol tartrate 25mg tablet PO SCH (20:06)
[2021-08-31] MEDS: K and/or MAG REPLACEMENT MC SCH (20:07)
[2021-08-31] MEDS: dexamethasone 4mg/ml inj IV SCH (20:07)
[2021-08-31] MEDS ORDERED: primidone 50mg tablet PO SCH (21:00)
[2021-08-31 22:00] VITALS: BP 151/77
[2021-08-31] MEDS ORDERED: glucagon, human recombinant 1mg kit SUBCUT PRN (22:15)
[2021-08-31] MEDS ORDERED: DEXTROSE 15 GM of carb/4 tabs (each vial/BOTTLE has 4 tablets) PO PRN ×2 (22:15)
[2021-08-31] MEDS ORDERED: MESSAGE TO PHARMACY PO ONE (22:15)
[2021-08-31] MEDS ORDERED: dextrose 50%-water 50ml dispensing syringe IV PRN (22:15)
[2021-08-31] MEDS: NYSTATIN CREAM - 30GM TUBE TP SCH (23:16)
[2021-09-01] MEDS: insulin glargine (Lantus) pen - multi-dose SQ SCH ×2 (00:53→21:27)
[2021-09-01] MEDS: hydrALAZINE 25 MG tablet PO SCH ×3 (00:58→16:54)
[2021-09-01] MEDS: dexamethasone 4mg/ml inj IV SCH ×4 (02:15→19:21)
[2021-09-01 05:00] VITALS: BP 187/70
--- NOTE | 2021-09-01 06:36 | NUR ---
Problems reprioritized. Patient report given, questions answered & plan of care reviewed with Madison BLAKE.
--- NOTE | 2021-09-01 06:48 | NUR ---
Patient in room ORTHO 4006. I have received report from Kamilah BLAKE and had the opportunity to ask questions and assume patient care.
[2021-09-01] MEDS: CefTRIAXone/D5W-Rocephin 1gm 50 ML IV SCH (07:21)
[2021-09-01] MEDS: citalopram 20mg tablet PO SCH (07:22)
[2021-09-01] MEDS: potassium chloride 10mEq ER tablet PO SCH (07:22)
[2021-09-01] MEDS: NYSTATIN CREAM - 30GM TUBE TP SCH ×3 (07:22→21:30)
[2021-09-01] MEDS: enoxaparin 40mg/0.4ml syringe SUBCUT SCH ×2 (07:22→19:20)
[2021-09-01] MEDS: atorvastatin 20mg tablet PO SCH (07:23)
[2021-09-01] MEDS: docusate sod 100mg capsule PO SCH ×2 (07:23→19:20)
[2021-09-01] MEDS: aspirin 325mg tablet, delayed-release (Ecotrin) PO SCH ×2 (07:23→19:20)
[2021-09-01] MEDS: metoprolol tartrate 25mg tablet PO SCH ×2 (07:23→19:26)
[2021-09-01] MEDS: losartan 50mg tablet PO SCH (07:24)
[2021-09-01] MEDS: HYDROchlorothiazide 12.5mg capsule PO SCH (07:25)
[2021-09-01] MEDS: K and/or MAG REPLACEMENT MC SCH ×2 (07:25→20:00)
[2021-09-01] MEDS: levetiracetam 250mg tablet PO SCH ×2 (07:25→19:21)
[2021-09-01] MEDS ORDERED: non-formulary drug (Losartan/Hydrochlorothiazide (Losartan-Hctz 100-12.5 Mg Tab) 1 TAB) PO SCH (08:00)
[2021-09-01 08:03] LABS: BASOPHILS % (AUTO) 0 % (0-1); EOSINOPHILS % (AUTO) 0 % (0-6); HEMATOCRIT 43.8 % (35.0-45.0); HEMOGLOBIN 14.5 g/dl (12.0-16.0); LYMPHOCYTES # (AUTO) 0.8 X10'3 (1.1-4.8); LYMPHOCYTES % (AUTO) 5.3 % (21-51); MEAN CORPUSCULAR HEMOGLOBIN 28.1 PG (27.0-31.0); MEAN CORPUSCULAR HGB CONC 33.1 g/dL (33.0-36.5); MEAN CORPUSCULAR VOLUME 84.8 FL (78-98); MEAN PLATELET VOLUME 8.8 FL (7.4-10.4); MONOCYTES # (AUTO) 0.4 X10'3 (0-0.9); NEUTROPHILS % (AUTO) 91.7 % (42-75); PLATELET COUNT 203 X10'3 (140-440); RED BLOOD COUNT 5.17 X10'6 (4.20-5.60); RED CELL DISTRIBUTION WIDTH 16.6 % (11.5-14.5); WHITE BLOOD COUNT 14.2 X10'3 (4.5-11.0)
[2021-09-01 08:15] LABS: ALANINE AMINOTRANSFERASE 26 U/L (12-78); ALBUMIN 2.5 G/DL (3.4-5.0); ALBUMIN/GLOBULIN RATIO 0.5 (1.1-1.5); ALKALINE PHOSPHATASE 71 IU/L (46-116); ANION GAP 9 (8-16); ASPARTATE AMINO TRANSFERASE 42 U/L (10-37); BILIRUBIN,TOTAL 0.5 MG/DL (0.1-1.0); BLOOD UREA NITROGEN 20 MG/DL (7-18); BUN/CREATININE RATIO 22.2 (6.6-38.0); CALCIUM 8.5 MG/DL (8.5-10.1); CHLORIDE 102 MMOL/L (99-107); GLUCOSE 168 MG/DL (70-104); POTASSIUM 3.6 MMOL/L (3.5-5.1); SODIUM 137 MMOL/L (135-145); TOTAL CARBON DIOXIDE 25.6 MMOL/L (24-32); TOTAL PROTEIN 7.3 G/DL (6.4-8.2); eGFR 60 ML/MIN
[2021-09-01 08:42] LABS: C-REACTIVE PROTEIN 20.51 MG/DL (0.0-0.5)
[2021-09-01] MEDS: REMDESIVIR INJ 100 MG in normal saline 100ml IV soln 100 ML IV SCH (08:49)
[2021-09-01] MEDS: insulin Lispro (HumaLOG) vial - multi-dose SQ SCH ×3 (09:19→19:17)
[2021-09-01 10:00] VITALS: BP 135/56
[2021-09-01 10:22] LABS: D-DIMER 1.07 MG/L FEU (0-0.50)
[2021-09-01] MEDS ORDERED: iohexol 350MG/ML 100ml bottle IV ONE (10:46)
--- NOTE | 2021-09-01 11:32 | NUR ---
Malnutrition Consult: Pt admit DX COVID-19, acute respiratory failure, and UTI per EMR. Pt reports 2-13 pound wt loss w/ decrease intake SUPERVISOR FRAMING MILL per RN Malnutrition Screen w/ hx N/V and diarrhea 2 weeks SUPERVISOR FRAMING MILL per EMR. Pt w/ no prior scaled wt hx current ht 61in though prior visits ht 64-67in per EMR. Pt has no edema/wounds, mild weakness, and PO 75-100% first heart healthy/carb controlled meal this AM per EMR. Pt hx DM A1C 6.5% takes Lantus 50 units BID at home per EMR. At this time pt lacks minimum malnutrition criteria. Will monitor for further malnutrition criteria and nutrition intervention needs this admit. Consider liberalizing to regular diet given age/A1C per physician discretion. Addendum: 09/01/21 at [address] Amended: Links added.
[2021-09-01] MEDS ORDERED: guaiFENesin/DM 10ml UD oral syrup PO PRN (11:55)
[2021-09-01] MEDS ORDERED: albuterol 2.5 MG/3 ML nebule NEB PRN (13:40)
[2021-09-01 15:40] VITALS: BP 131/52
[2021-09-01 16:30] VITALS: BP 142/74
--- NOTE | 2021-09-01 18:08 | NUR ---
PAGER ID: [phone] MESSAGE: Madison [email or web address] re Abby Daniels in 1990. Did you want to order an more antibiotics for the gram positive cocci & clusters?
--- NOTE | 2021-09-01 18:13 | NUR ---
Patient in room ORTHO 4006. I have received report from Mandi BLAKE and had the opportunity to ask questions and assume patient care.
--- NOTE | 2021-09-01 18:15 | NUR ---
Problems reprioritized. Patient report given, questions answered & plan of care reviewed with Kamilah BLAKE.
[2021-09-01] MEDS: famotidine 20mg tablet PO SCH (21:30)
[2021-09-01] MEDS: primidone 50mg tablet PO SCH (21:31)
[2021-09-01 22:00] VITALS: BP 148/69
[2021-09-02] VITALS: BP 157/74
[2021-09-02] MEDS: hydrALAZINE 25 MG tablet PO SCH ×4 (00:15→23:04)
[2021-09-02] MEDS: dexamethasone 4mg/ml inj IV SCH ×4 (02:04→21:14)
--- NOTE | 2021-09-02 03:51 | NUR ---
[facility] number ARRON [phone]
[2021-09-02 06:02] VITALS: BP 148/61
--- NOTE | 2021-09-02 06:18 | NUR ---
Change of shift. Pt is resting comfortably in bed. Pt has nc on and recieving 4L o2. No s/s of distress. BLL, call light within reach, frequently used items in reach, frequent rounding, hospital television rental clerk socks on. Will continue to monitor.
[2021-09-02 06:40] LABS: BASOPHILS % (AUTO) 0.1 % (0-1); EOSINOPHILS % (AUTO) 0 % (0-6); HEMATOCRIT 39.2 % (35.0-45.0); HEMOGLOBIN 13.1 g/dl (12.0-16.0); LYMPHOCYTES # (AUTO) 0.7 X10'3 (1.1-4.8); LYMPHOCYTES % (AUTO) 6.9 % (21-51); MEAN CORPUSCULAR HEMOGLOBIN 28.4 PG (27.0-31.0); MEAN CORPUSCULAR HGB CONC 33.5 g/dL (33.0-36.5); MEAN CORPUSCULAR VOLUME 84.8 FL (78-98); MEAN PLATELET VOLUME 8.8 FL (7.4-10.4); MONOCYTES # (AUTO) 0.4 X10'3 (0-0.9); MONOCYTES % (AUTO) 4.4 % (2-12); NEUTROPHILS # (AUTO) 8.8 X10'3 (1.8-7.7); NEUTROPHILS % (AUTO) 88.6 % (42-75); PLATELET COUNT 227 X10'3 (140-440); RED BLOOD COUNT 4.62 X10'6 (4.20-5.60); RED CELL DISTRIBUTION WIDTH 16.8 % (11.5-14.5); WHITE BLOOD COUNT 9.9 X10'3 (4.5-11.0)
[2021-09-02 06:48] LABS: D-DIMER 0.59 MG/L FEU (0-0.50)
[2021-09-02 06:51] LABS: ALANINE AMINOTRANSFERASE 22 U/L (12-78); ALBUMIN 2.3 G/DL (3.4-5.0); ALBUMIN/GLOBULIN RATIO 0.5 (1.1-1.5); ALKALINE PHOSPHATASE 64 IU/L (46-116); ANION GAP 1 (8-16); ASPARTATE AMINO TRANSFERASE 31 U/L (10-37); BILIRUBIN,TOTAL 0.3 MG/DL (0.1-1.0); BLOOD UREA NITROGEN 33 MG/DL (7-18); BUN/CREATININE RATIO 40.7 (6.6-38.0); C-REACTIVE PROTEIN 9.12 MG/DL (0.0-0.5); CALCIUM 8.3 MG/DL (8.5-10.1); CHLORIDE 103 MMOL/L (99-107); CREATININE 0.81 MG/DL (0.40-0.90); GLUCOSE 211 MG/DL (70-104); MAGNESIUM 2.1 MG/DL (1.5-2.4); POTASSIUM 3.2 MMOL/L (3.5-5.1); SODIUM 130 MMOL/L (135-145); TOTAL CARBON DIOXIDE 25.8 MMOL/L (24-32); TOTAL PROTEIN 6.7 G/DL (6.4-8.2); eGFR 67 ML/MIN
[2021-09-02] MEDS: CefTRIAXone/D5W-Rocephin 1gm 50 ML IV SCH (07:34)
[2021-09-02] MEDS: docusate sod 100mg capsule PO SCH ×2 (07:35→21:13)
[2021-09-02] MEDS: potassium chloride 10mEq ER tablet PO SCH (07:35)
[2021-09-02] MEDS: levetiracetam 250mg tablet PO SCH ×2 (07:35→21:14)
[2021-09-02] MEDS: citalopram 20mg tablet PO SCH (07:35)
[2021-09-02] MEDS: enoxaparin 40mg/0.4ml syringe SUBCUT SCH ×2 (07:35→21:12)
[2021-09-02] MEDS: metoprolol tartrate 25mg tablet PO SCH ×2 (07:36→21:13)
[2021-09-02] MEDS: aspirin 325mg tablet, delayed-release (Ecotrin) PO SCH ×2 (07:36→21:14)
[2021-09-02] MEDS: HYDROchlorothiazide 12.5mg capsule PO SCH (07:36)
[2021-09-02] MEDS: K and/or MAG REPLACEMENT MC SCH ×2 (07:37→20:00)
[2021-09-02] MEDS: atorvastatin 20mg tablet PO SCH (07:37)
[2021-09-02] MEDS: losartan 50mg tablet PO SCH (07:37)
[2021-09-02] MEDS: NYSTATIN CREAM - 30GM TUBE TP SCH ×3 (07:38→21:18)
[2021-09-02] MEDS: REMDESIVIR INJ 100 MG in normal saline 100ml IV soln 100 ML IV SCH (09:13)
[2021-09-02] MEDS: insulin Lispro (HumaLOG) vial - multi-dose SQ SCH ×2 (09:16→13:43)
[2021-09-02 10:00] VITALS: BP 91/57
--- NOTE | 2021-09-02 14:50 | NUR ---
Problems reprioritized. Patient report given, questions answered & plan of care reviewed with Curtis BLAKE.
--- NOTE | 2021-09-02 15:00 | NUR ---
Patient in room ORTHO 4006. I have received report from ESTUARDO BLAKE and had the opportunity to ask questions and assume patient care.
[2021-09-02] MEDS ORDERED: ALBUTEROL INHALER 1 PUFF/90 MCG INHALation IH PRN (15:40)
[2021-09-02] MEDS: normal saline 1000ml 1,000 ML IV SCH (17:15)
[2021-09-02 18:00] VITALS: BP 133/67
--- NOTE | 2021-09-02 19:08 | NUR ---
Patient in room ORTHO 4006. I have received report from Janeen Vernon Rn and had the opportunity to ask questions and assume patient care. Addendum: 09/02/21 at 1909 by Jaci Rhoades RN Amended: Links added.
--- NOTE | 2021-09-02 21:10 | NUR ---
PT CONFUSED HAD PULLED IV OUT HS MEDS GIVEN, REFUSING TO EAT GOT HER UP ON BEDSIDE COMMODE FOR BM. HER BED WAS NOT WORKING RIGHT HAD BEEN UNPLUGGED WHENEVER IT WAS PLUGGED IN IT ALARMED. GOT HER BACK TO BED ON SECOND IV STICK AND FREQUENT ATTEMPTS TO REORIENT NEW IV STARTED RIGHT RADIAL AREA 22. DECADRON GIVEN. CHANGED HER BED OUT WITH A NEW ONE. THEN ASSISTED BACK ONTO BEDSIDE COMMODE FOR STOOL AND URINE.
[2021-09-02] MEDS: famotidine 20mg tablet PO SCH (21:13)
[2021-09-02] MEDS: primidone 50mg tablet PO SCH (21:18)
--- NOTE | 2021-09-02 23:10 | NUR ---
PT COMPLETED EATING 2 BITES OF FOOD THEN CHASIDY GAVE HER HER MIDNIGHT MEDS.
[2021-09-02 23:15] VITALS: BP 178/72
[2021-09-02] MEDS: insulin glargine (Lantus) pen - multi-dose SQ SCH (23:46)
[2021-09-03] VITALS (9 sets, daily range): BP systolic 74–178; BP diastolic 40–89
[2021-09-03] MEDS: HYDROcodone/acetaminophen 5mg/325mg tablet PO PRN ×2 (00:02→03:52)
--- NOTE | 2021-09-03 00:49 | NUR ---
PT REPOSITIONED IN BED ATTEMPT TO REORIENT CONFUSED PULLING ON LINES NEW FINGER SAT ON WITH TELE TO MONITOR PT TO MONITOR HER SATS. IV INFUSING ORDERED TO KEEP IV IN PLACE SLEEVE ADDED TO RIGHT ARM. HOTEL AND DINING ROOM CASHIER MEDICATED PT WITH NORCO FOR PAIN AND PT COUGHING GIVEN COUGH MEDICATION WELL.
--- NOTE | 2021-09-03 00:56 | NUR ---
WELFARE PROJECT MANAGER OUTSIDE ROOM WATCHING PT DUE TO HER CONFUSION AND FALL RISK. 02 AT 4 LITERS TO KEEP SATS AT 94% AT THIS TIME.
--- NOTE | 2021-09-03 03:45 | NUR ---
inc large loose slightly formed stool. pt confused skin care done. medicated for pain with po norco. attempt to reorient the pt.
[2021-09-03] MEDS: dexamethasone 4mg/ml inj IV SCH ×4 (03:52→20:22)
--- NOTE | 2021-09-03 05:08 | NUR ---
vitals done leather lacer in to change to battery to the tele.
--- NOTE | 2021-09-03 05:15 | NUR ---
PT PULLED ARM SLEEVE OFF, INC OF STOOL WHILE DOING THIS PULLED TELE OFF AND AND PULLED IV OUT THAT WAS STARTED EARLIER. attempt to reorient pt.pt unable to even follow the simplest of requests and attempting to get out of bed . skin care done, changed attempt to redirect pt numerous times. liens changed. new battery in tele in sats at 97%. a second foreign clerk in to assist by 0610 am to assist with inserting new iv. due to confusion, combativeness, unable to follow direction, soft wrist restraints obtained and applied to pt sat's on 4 liters 02 which she also had taken that off, back up to 95-97%.
--- NOTE | 2021-09-03 06:25 | NUR ---
Dr Boudreaux notified of this ad order for wrist restraints obtained and morphine for pain. Fighting Vehicle Infantryman in the room with the pt due to her confusion. continue to maintain isolation procedures.
[2021-09-03] MEDS: normal saline 1000ml 1,000 ML IV SCH (06:44)
--- NOTE | 2021-09-03 07:13 | NUR ---
Problems reprioritized. Patient report given, questions answered & plan of care reviewed with LOU BANERJEE. Addendum: 09/03/21 at 0714 by Jaci Rhoades RN Amended: Links added.
[2021-09-03] MEDS: REMDESIVIR INJ 100 MG in normal saline 100ml IV soln 100 ML IV SCH (07:27)
[2021-09-03] MEDS: CefTRIAXone/D5W-Rocephin 1gm 50 ML IV SCH (07:28)
--- NOTE | 2021-09-03 07:56 | NUR ---
promotional table spacer promotional table spacer Page Sent promotional table spacer PAGER ID: [phone] MESSAGE: joselito ash rm [phone]. Can we get sitter order and IV meds for anxiety, thank you LAVONNE BLAKE
[2021-09-03] MEDS: K and/or MAG REPLACEMENT MC SCH ×2 (08:00→20:00)
[2021-09-03] MEDS: levetiracetam 250mg tablet PO SCH (08:00)
[2021-09-03] MEDS: losartan 50mg tablet PO SCH (08:00)
[2021-09-03] MEDS: atorvastatin 20mg tablet PO SCH (08:00)
[2021-09-03] MEDS: hydrALAZINE 25 MG tablet PO SCH ×2 (08:00→16:00)
[2021-09-03] MEDS: potassium chloride 10mEq ER tablet PO SCH (08:00)
[2021-09-03] MEDS: aspirin 325mg tablet, delayed-release (Ecotrin) PO SCH ×2 (08:00→20:00)
[2021-09-03] MEDS: docusate sod 100mg capsule PO SCH ×2 (08:00→20:00)
[2021-09-03] MEDS: HYDROchlorothiazide 12.5mg capsule PO SCH (08:00)
[2021-09-03] MEDS: citalopram 20mg tablet PO SCH (08:00)
[2021-09-03] MEDS: metoprolol tartrate 25mg tablet PO SCH ×2 (08:00→20:00)
[2021-09-03] MEDS: NYSTATIN CREAM - 30GM TUBE TP SCH ×3 (08:00→21:56)
--- NOTE | 2021-09-03 08:00 | NUR ---
rapid response called approximately at this time. Patient sats in low 70's patient wont hold still in bed.
[2021-09-03 08:21] LABS: BASOPHILS % (AUTO) 0.1 % (0-1); EOSINOPHILS % (AUTO) 0 % (0-6); HEMATOCRIT 41.7 % (35.0-45.0); HEMOGLOBIN 13.8 g/dl (12.0-16.0); LYMPHOCYTES # (AUTO) 0.6 X10'3 (1.1-4.8); LYMPHOCYTES % (AUTO) 5.6 % (21-51); MEAN CORPUSCULAR HEMOGLOBIN 28.3 PG (27.0-31.0); MEAN CORPUSCULAR HGB CONC 33.1 g/dL (33.0-36.5); MEAN CORPUSCULAR VOLUME 85.4 FL (78-98); MEAN PLATELET VOLUME 9.1 FL (7.4-10.4); MONOCYTES # (AUTO) 0.7 X10'3 (0-0.9); NEUTROPHILS # (AUTO) 9.3 X10'3 (1.8-7.7); NEUTROPHILS % (AUTO) 87.3 % (42-75); PLATELET COUNT 294 X10'3 (140-440); RED BLOOD COUNT 4.88 X10'6 (4.20-5.60); RED CELL DISTRIBUTION WIDTH 17.1 % (11.5-14.5); WHITE BLOOD COUNT 10.7 X10'3 (4.5-11.0)
[2021-09-03] MEDS: ziprasidone IM 20mg inj **IM only IM PRN ×2 (08:22→13:52)
[2021-09-03] MEDS ORDERED: levoFLOXACIN-Levaquin 750MG/D5 150 ML IV STA (08:29)
[2021-09-03 08:40] LABS: ALANINE AMINOTRANSFERASE 34 U/L (12-78); ALBUMIN 2.7 G/DL (3.4-5.0); ALBUMIN/GLOBULIN RATIO 0.6 (1.1-1.5); ALKALINE PHOSPHATASE 71 IU/L (46-116); ANION GAP 8 (8-16); ASPARTATE AMINO TRANSFERASE 48 U/L (10-37); BILIRUBIN,TOTAL 0.4 MG/DL (0.1-1.0); BLOOD UREA NITROGEN 35 MG/DL (7-18); BUN/CREATININE RATIO 38.5 (6.6-38.0); CALCIUM 8.7 MG/DL (8.5-10.1); CHLORIDE 103 MMOL/L (99-107); CREATININE 0.91 MG/DL (0.40-0.90); GLUCOSE 209 MG/DL (70-104); MAGNESIUM 2.2 MG/DL (1.5-2.4); POTASSIUM 3.7 MMOL/L (3.5-5.1); SODIUM 136 MMOL/L (135-145); TOTAL CARBON DIOXIDE 25.5 MMOL/L (24-32); TOTAL PROTEIN 7.1 G/DL (6.4-8.2); eGFR 59 ML/MIN
--- NOTE | 2021-09-03 08:47 | NUR ---
PAGER ID: [phone] MESSAGE: Dr. Rizzo it looks like Suha Cody was dc'd and they said she sounds wet, BP higher 178/62. Rosemarie [phone]
[2021-09-03 09:00] LABS: ABG BASE EXCESS -6.6 mmol/L (-2.0-2.0); ABG HCO3 20.7 mmol/L (22.0-26.0); ABG PCO2 (T) 47.7 mmHg (32.0-45.0); ABG PO2 (T) 205.9 mmHg (75.0-100.0); ALLEN'S TEST POSITIVE; FMetHb 0.3 % (0.0-1.5); FO2Hb 98.7 % (94-97)
[2021-09-03] MEDS ORDERED: furosemide 40mg/4ml inj IV ONE (09:15)
[2021-09-03] MEDS: insulin Lispro (HumaLOG) vial - multi-dose SQ SCH ×2 (09:38→13:49)
[2021-09-03] MEDS: enoxaparin 40mg/0.4ml syringe SUBCUT SCH ×2 (09:39→20:24)
--- NOTE | 2021-09-03 09:40 | NUR ---
Initial: Pt admitted w/ acute on chronic respiratory failure, Covid, SIRS, and COPD w/ exacerbation per EMR. Currently on Carb control/Heart Healthy diet w/ low PO intake, avg 37% x 4 meals not meeting needs. Recommend Liberalizing to Regular diet prior to ONS to see if PO trends improve. [facility] 09/02 receiving routine colace. Will continue to monitor. Recs; 1. Liberalize to Regular diet 2. Monitor need for ONS following diet liberalization 3. Bowel care per rx 4. Weekly wts Addendum: 09/03/21 at [address] Amended: Links added.
--- NOTE | 2021-09-03 10:00 | NUR ---
promotional table spacer promotional table spacer Page Sent promotional table spacer PAGER ID: [phone] MESSAGE: re candice ash rm [id number]. pt unable to take any PO meds. need IV HTN meds . SBP in 170's HR in 110-120 (also Resp in 40's) thank you LAVONNE BLAKE
[2021-09-03] MEDS ORDERED: metoprolol tartrate 1mg/ml inj IV ONE (10:10)
[2021-09-03] MEDS: LORazepam 2 mg/ml vial IV PRN ×2 (10:52→14:54)
[2021-09-03] MEDS: ipratropium/albuterol 3ml nebule NEB PRN (15:42)
[2021-09-03] MEDS ORDERED: dexmedetomidin/NS 400mcg/100ml 100 ML IV SCH (16:05)
[2021-09-03] MEDS ORDERED: ondansetron 4mg rapidly disintigrating tab PO PRN (16:30)
--- NOTE | 2021-09-03 16:33 | NUR ---
report given, patient transferred with RT and sitter. Addendum: 09/03/21 at 1654 by Miguel Gutierres RN VS not stable with RR in mid 30's to 40's at times, O2 sats labile dipping at times to 80's and 70's depending on pt combativeness and "thrashing" in bed. It was reported that she had urinary retention and Dr Rizzo needed to be notified so obtain orders for SC or F/C for retention, however just prior to transferring she voided in the bed
--- NOTE | 2021-09-03 16:39 | NUR ---
approx 0800 called to pt room by staff emergency call. Savannahlissette Pippa needing help to keep pt in bed, pt was restrained but was able uncontrollable still on bed. upon entering room I noticed patient was diaphoretic, tachypnic, tachycardic and had O2 sats in the 70's, based on TELE monitor and assessments I requested a rapid response be called. O2 turned up and nonrebreather applied while waiting for further intervention. Please see RR note for more information.
--- NOTE | 2021-09-03 16:45 | NUR ---
received from ortho. FC placed, return of clear yellow urine, precedex started, oral care done and pulmonary toliet sats 97 on 8L NC
[2021-09-03] MEDS: DEXMEDETOMIDINE IN 0.9 % NACL 50 ML IV SCH ×3 (16:48→23:44)
--- NOTE | 2021-09-03 17:49 | NUR ---
spoke with son Seth was unaware that pt was in the hospital. states lives with [employer] worker in poor filthy conditions. states that there are 5 children including himself. recommeded that he discuss with siblings to establish decision maker, spokesperson and social media intern consult with be made
--- NOTE | 2021-09-03 17:59 | NUR ---
sbp 78 decreased precedex from .6 to .4
[2021-09-03] MEDS ORDERED: normal saline 250ml IV soln 250 ML IV PRN (19:15)
[2021-09-03] MEDS: levetiracetam inj 500 MG in normal saline 100ml IV soln 100 ML IV SCH (20:16)
[2021-09-03] MEDS: famotidine 20mg tablet PO SCH (20:54)
[2021-09-04] VITALS (24 sets, daily range): BP systolic 92–149; BP diastolic 56–98
[2021-09-04] MEDS: dexamethasone 4mg/ml inj IV SCH ×4 (02:01→20:42)
[2021-09-04] MEDS: DEXMEDETOMIDINE IN 0.9 % NACL 50 ML IV SCH ×10 (03:45→22:37)
[2021-09-04 05:44] LABS: BASOPHILS % (AUTO) 0.3 % (0-1); EOSINOPHILS % (AUTO) 0 % (0-6); HEMATOCRIT 39.1 % (35.0-45.0); HEMOGLOBIN 12.7 g/dl (12.0-16.0); LYMPHOCYTES # (AUTO) 0.8 X10'3 (1.1-4.8); LYMPHOCYTES % (AUTO) 6.9 % (21-51); MEAN CORPUSCULAR HEMOGLOBIN 27.6 PG (27.0-31.0); MEAN CORPUSCULAR HGB CONC 32.5 g/dL (33.0-36.5); MEAN CORPUSCULAR VOLUME 84.8 FL (78-98); MEAN PLATELET VOLUME 9.1 FL (7.4-10.4); MONOCYTES # (AUTO) 0.9 X10'3 (0-0.9); MONOCYTES % (AUTO) 8.3 % (2-12); NEUTROPHILS # (AUTO) 9.4 X10'3 (1.8-7.7); NEUTROPHILS % (AUTO) 84.5 % (42-75); PLATELET COUNT 235 X10'3 (140-440); RED BLOOD COUNT 4.62 X10'6 (4.20-5.60); RED CELL DISTRIBUTION WIDTH 16.8 % (11.5-14.5); WHITE BLOOD COUNT 11.2 X10'3 (4.5-11.0)
[2021-09-04 06:06] LABS: ALANINE AMINOTRANSFERASE 40 U/L (12-78); ALBUMIN 2.2 G/DL (3.4-5.0); ALBUMIN/GLOBULIN RATIO 0.5 (1.1-1.5); ALKALINE PHOSPHATASE 63 IU/L (46-116); ANION GAP 8 (8-16); ASPARTATE AMINO TRANSFERASE 58 U/L (10-37); BILIRUBIN,TOTAL 0.3 MG/DL (0.1-1.0); BLOOD UREA NITROGEN 49 MG/DL (7-18); BUN/CREATININE RATIO 31.6 (6.6-38.0); CALCIUM 8.3 MG/DL (8.5-10.1); CHLORIDE 109 MMOL/L (99-107); CREATININE 1.55 MG/DL (0.40-0.90); GLUCOSE 196 MG/DL (70-104); MAGNESIUM 2.2 MG/DL (1.5-2.4); POTASSIUM 4.5 MMOL/L (3.5-5.1); SODIUM 144 MMOL/L (135-145); TOTAL CARBON DIOXIDE 26.7 MMOL/L (24-32); TOTAL PROTEIN 6.3 G/DL (6.4-8.2); eGFR 32 ML/MIN
[2021-09-04] MEDS: levetiracetam inj 500 MG in normal saline 100ml IV soln 100 ML IV SCH ×2 (07:26→20:42)
[2021-09-04] MEDS: HYDROchlorothiazide 12.5mg capsule PO SCH (08:00)
[2021-09-04] MEDS: docusate sod 100mg capsule PO SCH (08:00)
[2021-09-04] MEDS: losartan 50mg tablet PO SCH (08:00)
[2021-09-04] MEDS: metoprolol tartrate 25mg tablet PO SCH (08:00)
[2021-09-04] MEDS: enoxaparin 40mg/0.4ml syringe SUBCUT SCH (08:00)
[2021-09-04] MEDS: furosemide 40mg/4ml inj IV SCH ×2 (08:00→20:42)
[2021-09-04] MEDS: citalopram 20mg tablet PO SCH (08:00)
[2021-09-04] MEDS: potassium chloride 10mEq ER tablet PO SCH (08:00)
[2021-09-04] MEDS: hydrALAZINE 25 MG tablet PO SCH ×2 (08:00)
[2021-09-04] MEDS: K and/or MAG REPLACEMENT MC SCH ×2 (08:00→20:00)
[2021-09-04] MEDS: atorvastatin 20mg tablet PO SCH (08:00)
[2021-09-04] MEDS: aspirin 325mg tablet, delayed-release (Ecotrin) PO SCH (08:00)
[2021-09-04] MEDS: REMDESIVIR INJ 100 MG in normal saline 100ml IV soln 100 ML IV SCH (08:17)
[2021-09-04 08:25] LABS: C-REACTIVE PROTEIN 5.58 MG/DL (0.0-0.5)
[2021-09-04] MEDS: pantoprazole 40MG/NS 100ML BAG 100 ML IV SCH (08:45)
[2021-09-04 10:23] LABS: D-DIMER 1.68 MG/L FEU (0-0.50)
[2021-09-04] MEDS: levoFLOXACIN-Levaquin 750MG/D5 150 ML IV SCH (11:01)
[2021-09-04] MEDS: insulin Lispro (HumaLOG) vial - multi-dose SQ SCH ×2 (11:33→15:58)
--- NOTE | 2021-09-04 12:02 | NUR ---
TF Consult: Pt currently NPO s/p rapid response yesterday confused pending corpak for TF initiation today per property man at rounds; recs below. LBM 09/03. Will monitor for TF tolerance and adjustment needs. Recs: 1. Continuous TF per MD using Pivot 1.5 at 43ml/hr goal; to provide 1032ml volume/day, 1548 kcals, 774ml water, and 97g protein. 2. additional water flush 200ml Q4H 3. PALB Q /; daily wts 4. Bowel care per rx 5. Monitor for EN tolerance and adjustment needs 6. advance diet as medically indicated to regular per PROCESS IMPROVEMENT CONSULTANT/MD recs Addendum: 09/04/21 at [address] Amended: Links added.
[2021-09-04] MEDS: NYSTATIN CREAM - 30GM TUBE TP SCH ×2 (13:00→21:10)
[2021-09-04] MEDS ORDERED: acetaminophen 325mg/10.15ml oral unit dose solution NG PRN (14:22)
[2021-09-04] MEDS ORDERED: DEXTROSE 15 GM of carb/4 tabs (each vial/BOTTLE has 4 tablets) NG PRN ×2 (14:23)
[2021-09-04] MEDS ORDERED: guaiFENesin/DM 10ml UD oral syrup NG PRN (14:24)
[2021-09-04] MEDS ORDERED: mag hydrox/Alum hydrox/simeth 30ml oral suspension NG PRN (14:24)
[2021-09-04] MEDS ORDERED: magnesium hydroxide 30ml (MOM) UD suspension NG PRN (14:25)
[2021-09-04] MEDS ORDERED: ondansetron 4mg/5ml UD cup NG PRN (14:26)
[2021-09-04] MEDS: dextrose 5%-normal saline 1,000 ML IV SCH (15:58)
[2021-09-04] MEDS: hydrALAZINE 25 MG tablet NG SCH (16:00)
[2021-09-04] MEDS: ziprasidone IM 20mg inj **IM only IM PRN ×2 (17:13→23:27)
[2021-09-04] MEDS ORDERED: enoxaparin 40mg/0.4ml syringe SUBCUT SCH (17:29)
[2021-09-04] MEDS: morphine 2 MG/ML inj. syringe IV PRN ×2 (18:53→23:27)
[2021-09-04] MEDS: aspirin 325mg tablet NG SCH (20:00)
[2021-09-04] MEDS: metoprolol tartrate 25mg tablet NG SCH (20:00)
[2021-09-04] MEDS: docusate sodium 100mg/10ml UD cup NG SCH (20:00)
[2021-09-04] MEDS: insulin glargine (Lantus) pen - multi-dose SQ SCH (21:00)
[2021-09-04] MEDS: primidone 50mg tablet NG SCH (21:00)
--- NOTE | 2021-09-04 21:05 | NUR ---
Notified WYATT Zamudio about patient not currently eating and diabetes. Lizz advised to hold both Humalog and Lantus but to continue monitoring glucose
[2021-09-05] VITALS (24 sets, daily range): BP systolic 118–175; BP diastolic 58–99
[2021-09-05] MEDS: DEXMEDETOMIDINE IN 0.9 % NACL 50 ML IV SCH ×10 (00:02→23:54)
[2021-09-05] MEDS: insulin Lispro (HumaLOG) vial - multi-dose SQ SCH (02:40)
[2021-09-05] MEDS: dexamethasone 4mg/ml inj IV SCH ×4 (02:47→20:31)
[2021-09-05] MEDS: dextrose 5%-normal saline 1,000 ML IV SCH ×2 (05:48→07:00)
[2021-09-05 06:03] LABS: BASOPHILS % (AUTO) 0.4 % (0-1); EOSINOPHILS % (AUTO) 0 % (0-6); HEMATOCRIT 42.7 % (35.0-45.0); HEMOGLOBIN 13.4 g/dl (12.0-16.0); LYMPHOCYTES # (AUTO) 0.7 X10'3 (1.1-4.8); LYMPHOCYTES % (AUTO) 6.3 % (21-51); MEAN CORPUSCULAR HEMOGLOBIN 27.6 PG (27.0-31.0); MEAN CORPUSCULAR HGB CONC 31.5 g/dL (33.0-36.5); MEAN CORPUSCULAR VOLUME 87.7 FL (78-98); MEAN PLATELET VOLUME 9.3 FL (7.4-10.4); MONOCYTES # (AUTO) 1.1 X10'3 (0-0.9); MONOCYTES % (AUTO) 9.9 % (2-12); NEUTROPHILS # (AUTO) 9.2 X10'3 (1.8-7.7); NEUTROPHILS % (AUTO) 83.4 % (42-75); PLATELET COUNT 209 X10'3 (140-440); RED BLOOD COUNT 4.86 X10'6 (4.20-5.60); RED CELL DISTRIBUTION WIDTH 17.1 % (11.5-14.5)
[2021-09-05 06:33] LABS: ALANINE AMINOTRANSFERASE 39 U/L (12-78); ALBUMIN 2.3 G/DL (3.4-5.0); ALBUMIN/GLOBULIN RATIO 0.5 (1.1-1.5); ALKALINE PHOSPHATASE 69 IU/L (46-116); ANION GAP 11 (8-16); ASPARTATE AMINO TRANSFERASE 50 U/L (10-37); BILIRUBIN,TOTAL 0.4 MG/DL (0.1-1.0); BLOOD UREA NITROGEN 55 MG/DL (7-18); BUN/CREATININE RATIO 37.4 (6.6-38.0); CALCIUM 8.1 MG/DL (8.5-10.1); CHLORIDE 111 MMOL/L (99-107); CREATININE 1.47 MG/DL (0.40-0.90); GLUCOSE 256 MG/DL (70-104); POTASSIUM 4.9 MMOL/L (3.5-5.1); PREALBUMIN 16.3 MG/DL (19-36); SODIUM 144 MMOL/L (135-145); TOTAL CARBON DIOXIDE 21.7 MMOL/L (24-32); TOTAL PROTEIN 6.7 G/DL (6.4-8.2); eGFR 34 ML/MIN
[2021-09-05] MEDS: levetiracetam inj 500 MG in normal saline 100ml IV soln 100 ML IV SCH ×2 (07:33→20:31)
[2021-09-05] MEDS: furosemide 40mg/4ml inj IV SCH ×2 (07:35→20:31)
[2021-09-05] MEDS: pantoprazole 40MG/NS 100ML BAG 100 ML IV SCH (07:44)
[2021-09-05] MEDS: insulin regular, human U-100 3ml vial - multi-dose SQ SCH ×3 (07:58→20:51)
[2021-09-05] MEDS: hydrALAZINE 25 MG tablet NG SCH ×3 (08:00→13:15)
[2021-09-05] MEDS: docusate sodium 100mg/10ml UD cup NG SCH ×2 (08:00→20:00)
[2021-09-05] MEDS: losartan 50mg tablet NG SCH (08:00)
[2021-09-05] MEDS: atorvastatin 20mg tablet NG SCH (08:00)
[2021-09-05] MEDS: K and/or MAG REPLACEMENT MC SCH ×2 (08:00→20:00)
[2021-09-05] MEDS: HYDROchlorothiazide 12.5mg capsule NG SCH (08:00)
[2021-09-05] MEDS: aspirin 325mg tablet NG SCH ×2 (08:00→20:00)
[2021-09-05] MEDS: metoprolol tartrate 25mg tablet NG SCH ×2 (08:00→20:00)
[2021-09-05] MEDS: POTASSIUM BICARBONATE/CIT AC 10 MEQ TABLET.EFF NG SCH (08:00)
[2021-09-05] MEDS: citalopram 20mg tablet NG SCH (08:00)
[2021-09-05] MEDS: levoFLOXACIN-Levaquin 750MG/D5 150 ML IV SCH (08:38)
[2021-09-05] MEDS: NYSTATIN CREAM - 30GM TUBE TP SCH ×3 (08:41→21:38)
[2021-09-05] MEDS ORDERED: hydrALAZINE 20mg/ml inj. IV ONE (11:01)
[2021-09-05] MEDS: ziprasidone IM 20mg inj **IM only IM PRN ×2 (11:10→20:42)
--- NOTE | 2021-09-05 11:49 | NUR ---
TPN Consult: Pt unable to have NG placed given ALOC per RN; pending PICC line at this time w/ TPN to start per senior landscape architect at rounds. PN recs below. PT currently receiving D5/NS at 75ml/hr though likely to wean once PN initiation. Will monitor for PN tolerance and further nutrition intervention needs. Recs: 1. Continuous TPN via PICC per MD using 2:1 Clinimix E 5/20 at 65ml/hr goal w/ separate 250ml 20% intralipids to run for 12 hours Q /Sat at 20.83ml/hr. To provide 1560ml volume/day, 78g AA, 312g DEX (2.51mg/kg/min), and avg 1516 kcals/day. 2. IF able to place NG; continuous TF using Pivot 1.5 at 43ml/hr goal; to provide 1032ml volume/day, 1548 kcals, 774ml water, and 97g protein. 3. TG/PALB Q /; daily wts 4. Monitor for PN tolerance and adjustment needs 5. Bowel care per rx 6. advance diet as medically indicated to regular per SEE WHEELER/MD recs Addendum: 09/05/21 at [address] Amended: Links added.
[2021-09-05] MEDS: LORazepam 2 mg/ml vial IV PRN (14:30)
[2021-09-05] MEDS ORDERED: magnesium Cl slow-release 64mg tablet PO PRN (15:15)
[2021-09-05] MEDS ORDERED: magnesium 2GM in 50ml NS 50 ML IV PRN (15:15)
[2021-09-05] MEDS ORDERED: magnesium 4gm in 100ml NS 100 ML IV PRN (15:15)
[2021-09-05] MEDS ORDERED: Dextrose 10%-water IV solution 1,000 ML IV PRN (15:15)
[2021-09-05 16:11] LABS: ALANINE AMINOTRANSFERASE 43 U/L (12-78); ALBUMIN 2.2 G/DL (3.4-5.0); ALBUMIN/GLOBULIN RATIO 0.5 (1.1-1.5); ALKALINE PHOSPHATASE 66 IU/L (46-116); ANION GAP 8 (8-16); ASPARTATE AMINO TRANSFERASE 35 U/L (10-37); BILIRUBIN,TOTAL 0.3 MG/DL (0.1-1.0); BLOOD UREA NITROGEN 49 MG/DL (7-18); BUN/CREATININE RATIO 36.3 (6.6-38.0); CALCIUM 8.2 MG/DL (8.5-10.1); CHLORIDE 114 MMOL/L (99-107); CREATININE 1.35 MG/DL (0.40-0.90); GLUCOSE 286 MG/DL (70-104); MAGNESIUM 1.9 MG/DL (1.5-2.4); POTASSIUM 4.2 MMOL/L (3.5-5.1); PREALBUMIN 15.4 MG/DL (19-36); SODIUM 148 MMOL/L (135-145); TOTAL CARBON DIOXIDE 26.4 MMOL/L (24-32); TOTAL PROTEIN 6.3 G/DL (6.4-8.2); TRIGLYCERIDES 164 MG/DL (20-135); eGFR 37 ML/MIN
[2021-09-05] MEDS ORDERED: ZINC/COPPER/MANGANESE/SELENIUM 0.5 ML, chromic chloride inj. 5 MCG in AA 5%/CALCIUM/LYT... IV SCH (17:00)
[2021-09-05] MEDS ORDERED: MVI, adult No.4 with vit. K 10 ML in dextrose 5% water 500ml 500 ML IV SCH ×2 (17:00)
--- NOTE | 2021-09-05 18:30 | NUR ---
Patient in room CICU 2006. I have received report from Rob BLAKE and had the opportunity to ask questions and assume patient care.
[2021-09-05] MEDS: MVI, adult No.4 with vit. K 10 ML in dextrose 5% water 500ml 500 ML IV SCH ×2 (18:58)
[2021-09-05] MEDS: insulin glargine (Lantus) pen - multi-dose SQ SCH (20:49)
[2021-09-05] MEDS: primidone 50mg tablet NG SCH (21:00)
[2021-09-06] VITALS (24 sets, daily range): BP systolic 113–170; BP diastolic 57–105
[2021-09-06] MEDS: hydrALAZINE 20mg/ml inj. IV PRN (00:40)
[2021-09-06] MEDS: DEXMEDETOMIDINE IN 0.9 % NACL 50 ML IV SCH ×6 (02:23→20:50)
[2021-09-06] MEDS: insulin regular, human U-100 3ml vial - multi-dose SQ SCH ×2 (02:32→08:14)
[2021-09-06] MEDS: dexamethasone 4mg/ml inj IV SCH ×4 (02:50→20:27)
[2021-09-06 03:25] LABS: BASOPHILS % (AUTO) 0.1 % (0-1); EOSINOPHILS % (AUTO) 0 % (0-6); HEMATOCRIT 41.4 % (35.0-45.0); HEMOGLOBIN 13.3 g/dl (12.0-16.0); LYMPHOCYTES # (AUTO) 0.3 X10'3 (1.1-4.8); LYMPHOCYTES % (AUTO) 3.2 % (21-51); MEAN CORPUSCULAR HEMOGLOBIN 27.8 PG (27.0-31.0); MEAN CORPUSCULAR HGB CONC 32.1 g/dL (33.0-36.5); MEAN CORPUSCULAR VOLUME 86.7 FL (78-98); MEAN PLATELET VOLUME 10.1 FL (7.4-10.4); MONOCYTES # (AUTO) 0.6 X10'3 (0-0.9); MONOCYTES % (AUTO) 5.9 % (2-12); NEUTROPHILS # (AUTO) 9.5 X10'3 (1.8-7.7); NEUTROPHILS % (AUTO) 90.8 % (42-75); PLATELET COUNT 221 X10'3 (140-440); RED BLOOD COUNT 4.78 X10'6 (4.20-5.60); RED CELL DISTRIBUTION WIDTH 17.5 % (11.5-14.5); WHITE BLOOD COUNT 10.4 X10'3 (4.5-11.0)
[2021-09-06 03:33] LABS: ALANINE AMINOTRANSFERASE 44 U/L (12-78); ALBUMIN 2.2 G/DL (3.4-5.0); ALBUMIN/GLOBULIN RATIO 0.5 (1.1-1.5); ALKALINE PHOSPHATASE 66 IU/L (46-116); ANION GAP 9 (8-16); ASPARTATE AMINO TRANSFERASE 28 U/L (10-37); BILIRUBIN,TOTAL 0.4 MG/DL (0.1-1.0); BLOOD UREA NITROGEN 46 MG/DL (7-18); BUN/CREATININE RATIO 35.9 (6.6-38.0); CALCIUM 8.4 MG/DL (8.5-10.1); CHLORIDE 110 MMOL/L (99-107); CREATININE 1.28 MG/DL (0.40-0.90); GLUCOSE 420 MG/DL (70-104); MAGNESIUM 1.9 MG/DL (1.5-2.4); PHOSPHORUS 2.5 MG/DL (2.3-4.5); POTASSIUM 3.9 MMOL/L (3.5-5.1); SODIUM 147 MMOL/L (135-145); TOTAL CARBON DIOXIDE 27.8 MMOL/L (24-32); TOTAL PROTEIN 6.5 G/DL (6.4-8.2); eGFR 40 ML/MIN
[2021-09-06] MEDS: dextrose 5%-normal saline 1,000 ML IV SCH (07:10)
[2021-09-06] MEDS: levetiracetam inj 500 MG in normal saline 100ml IV soln 100 ML IV SCH ×2 (07:44→20:27)
[2021-09-06] MEDS: enoxaparin 30mg/0.3ml syringe SUBCUT SCH (07:44)
[2021-09-06] MEDS: pantoprazole 40MG/NS 100ML BAG 100 ML IV SCH (07:44)
[2021-09-06] MEDS: furosemide 40mg/4ml inj IV SCH (07:44)
[2021-09-06] MEDS: NYSTATIN CREAM - 30GM TUBE TP SCH ×3 (07:45→21:03)
[2021-09-06] MEDS: K and/or MAG REPLACEMENT MC SCH ×2 (07:51→20:00)
[2021-09-06] MEDS: aspirin 325mg tablet NG SCH ×2 (08:00→20:27)
[2021-09-06] MEDS: POTASSIUM BICARBONATE/CIT AC 10 MEQ TABLET.EFF NG SCH ×2 (08:00→12:45)
[2021-09-06] MEDS: atorvastatin 20mg tablet NG SCH (08:00)
[2021-09-06] MEDS: docusate sodium 100mg/10ml UD cup NG SCH ×2 (08:00→20:27)
[2021-09-06] MEDS: metoprolol tartrate 25mg tablet NG SCH ×3 (08:00→20:00)
[2021-09-06] MEDS: hydrALAZINE 25 MG tablet NG SCH ×4 (08:00→17:37)
[2021-09-06] MEDS: HYDROchlorothiazide 12.5mg capsule NG SCH (08:00)
[2021-09-06] MEDS: citalopram 20mg tablet NG SCH ×2 (08:00→12:45)
[2021-09-06] MEDS: losartan 50mg tablet NG SCH ×2 (08:00→12:45)
[2021-09-06] MEDS ORDERED: ZINC/COPPER/MANGANESE/SELENIUM 0.5 ML, chromic chloride inj. 5 MCG in AA 5%/CALCIUM/LYT... IV SCH (09:17)
[2021-09-06] MEDS ORDERED: HUMAN IV SCH ×2 (09:45)
[2021-09-06] MEDS ORDERED: NORMAL SALINE IV SCH ×2 (09:45)
[2021-09-06] MEDS ORDERED: INSULIN REGULAR IV SCH ×3 (09:45→10:34)
[2021-09-06] MEDS ORDERED: Insulin Reg/NS 100units/100mL 100 ML IV SCH (10:35)
[2021-09-06] MEDS: ziprasidone IM 20mg inj **IM only IM PRN ×2 (11:21→19:03)
[2021-09-06] MEDS ORDERED: hydrALAZINE 20mg/ml inj. IV PRN (11:50)
--- NOTE | 2021-09-06 12:45 | NUR ---
TF Consult: Pt NG now successfully placed w/ plan to advance EN as tolerated and wean PN once EN tolerance assured. Updated recs below; will monitor for EN tolerance and adjustment needs. Noted pt Glu 422mg/dl this AM to start insulin drip today per change coordinator at rounds. Pt takes Lantus 45 units AM and 35 units HS at home per clinical pharmacist; SKYLAR d/w RN as pt has received 56 units Lantus total since admit 09/01 per EMR likely influencing Glu in addition to steroids and DX. Recs: 1. Continuous TF per MD using Pivot 1.5 at 43ml/hr goal; to provide 1032ml volume/day, 1548 kcals, 774ml water, and 97g protein. 2. additional water flush 200ml Q4H 3. PALB Q /; daily wts 4. routine bowel care 5. advance diet as medically indicated to regular per ACTIVITY THERAPY TEACHER/MD recs Addendum: 09/06/21 at [address] Amended: Links added.
--- NOTE | 2021-09-06 13:01 | NUR ---
NGT placed to Left nares. am meds given at this time. Monitoring ongoing
[2021-09-06] MEDS: piperacillin/tazo 3.375gm/50ml 50 ML IV SCH (16:13)
--- NOTE | 2021-09-06 18:13 | NUR ---
Remains non responsive, opens eyes spontaneously, does not track or follow any commands. Moans intermittently, appears deeply sedated when attempts are made to make patient comfortable. Prn Geodon given for agitation. Safety measures in place. 1:1 sitter for safety. Pivot 1.5 @ 20ml/hr, tolerating thus far. Pt's son - Seth updated with plan of care. Report given to pm rn for resumption of care.
--- NOTE | 2021-09-06 18:30 | NUR ---
Patient in room CICU 2006. I have received report from Tom BLAKE (traveler)and had the opportunity to ask questions and assume patient care.
[2021-09-06] MEDS: HYDROcodone/acetaminophen 5mg/325mg tablet PO PRN (19:04)
[2021-09-06] MEDS: primidone 50mg tablet NG SCH (21:00)
--- NOTE | 2021-09-06 22:00 | NUR ---
Notified Dr. Sanchez of pt switching to tube feeding from TPN and dropping glucose d/t insulin drip. Received order to DC insulin drip and switch to q6h glucose checks. Protocol restarted and no longer at level 6.. for now.
[2021-09-07] VITALS (21 sets, daily range): BP systolic 99–176; BP diastolic 46–85
[2021-09-07] MEDS: piperacillin/tazo 3.375gm/50ml 50 ML IV SCH ×3 (00:24→16:00)
[2021-09-07] MEDS: hydrALAZINE 25 MG tablet NG SCH ×3 (00:24→16:12)
[2021-09-07] MEDS: DEXMEDETOMIDINE IN 0.9 % NACL 50 ML IV SCH ×10 (00:55→21:48)
[2021-09-07] MEDS: dexamethasone 4mg/ml inj IV SCH ×4 (02:43→20:32)
[2021-09-07 03:45] LABS: BASOPHILS % (AUTO) 0.1 % (0-1); EOSINOPHILS % (AUTO) 0 % (0-6); HEMATOCRIT 41.2 % (35.0-45.0); HEMOGLOBIN 13.4 g/dl (12.0-16.0); LYMPHOCYTES # (AUTO) 0.7 X10'3 (1.1-4.8); LYMPHOCYTES % (AUTO) 6.2 % (21-51); MEAN CORPUSCULAR HGB CONC 32.4 g/dL (33.0-36.5); MEAN CORPUSCULAR VOLUME 86.3 FL (78-98); MONOCYTES # (AUTO) 0.6 X10'3 (0-0.9); MONOCYTES % (AUTO) 5.6 % (2-12); NEUTROPHILS # (AUTO) 9.3 X10'3 (1.8-7.7); NEUTROPHILS % (AUTO) 88.1 % (42-75); PLATELET COUNT 212 X10'3 (140-440); RED BLOOD COUNT 4.77 X10'6 (4.20-5.60); RED CELL DISTRIBUTION WIDTH 16.6 % (11.5-14.5); WHITE BLOOD COUNT 10.5 X10'3 (4.5-11.0)
[2021-09-07 04:05] LABS: ALANINE AMINOTRANSFERASE 44 U/L (12-78); ALBUMIN 2.2 G/DL (3.4-5.0); ALBUMIN/GLOBULIN RATIO 0.5 (1.1-1.5); ALKALINE PHOSPHATASE 69 IU/L (46-116); ANION GAP 7 (8-16); ASPARTATE AMINO TRANSFERASE 33 U/L (10-37); BILIRUBIN,TOTAL 0.6 MG/DL (0.1-1.0); BLOOD UREA NITROGEN 46 MG/DL (7-18); CALCIUM 8.7 MG/DL (8.5-10.1); CHLORIDE 112 MMOL/L (99-107); CREATININE 1.15 MG/DL (0.40-0.90); GLUCOSE 113 MG/DL (70-104); MAGNESIUM 1.8 MG/DL (1.5-2.4); PHOSPHORUS 2.4 MG/DL (2.3-4.5); POTASSIUM 3.4 MMOL/L (3.5-5.1); PREALBUMIN 16.6 MG/DL (19-36); SODIUM 152 MMOL/L (135-145); TOTAL CARBON DIOXIDE 33.3 MMOL/L (24-32); TOTAL PROTEIN 6.5 G/DL (6.4-8.2); TRIGLYCERIDES 148 MG/DL (20-135); eGFR 45 ML/MIN
[2021-09-07] MEDS: K and/or MAG REPLACEMENT MC SCH ×2 (08:00→20:00)
[2021-09-07] MEDS ORDERED: levoFLOXACIN-Levaquin 750MG/D5 150 ML IV SCH (08:00)
[2021-09-07] MEDS: levetiracetam inj 500 MG in normal saline 100ml IV soln 100 ML IV SCH ×2 (08:08→20:32)
[2021-09-07] MEDS: furosemide 40mg/4ml inj IV SCH (08:08)
[2021-09-07] MEDS: pantoprazole 40MG/NS 100ML BAG 100 ML IV SCH (08:08)
[2021-09-07] MEDS: atorvastatin 20mg tablet NG SCH (08:09)
[2021-09-07] MEDS: citalopram 20mg tablet NG SCH (08:09)
[2021-09-07] MEDS: POTASSIUM BICARBONATE/CIT AC 10 MEQ TABLET.EFF NG SCH (08:09)
[2021-09-07] MEDS: docusate sodium 100mg/10ml UD cup NG SCH (08:09)
[2021-09-07] MEDS: losartan 50mg tablet NG SCH (08:09)
[2021-09-07] MEDS: aspirin 325mg tablet NG SCH ×2 (08:09→21:48)
[2021-09-07] MEDS: enoxaparin 30mg/0.3ml syringe SUBCUT SCH (08:10)
[2021-09-07] MEDS: HYDROchlorothiazide 12.5mg capsule NG SCH (08:10)
[2021-09-07] MEDS: metoprolol tartrate 25mg tablet NG SCH ×2 (08:10→21:59)
[2021-09-07] MEDS: NYSTATIN CREAM - 30GM TUBE TP SCH ×3 (08:10→21:00)
[2021-09-07] MEDS ORDERED: LORazepam 2 mg/ml vial IV ONE (12:10)
[2021-09-07] MEDS: insulin regular, human U-100 3ml vial - multi-dose SQ SCH ×2 (14:07→22:26)
[2021-09-07] MEDS: thiamine 100mg/ml 2ml inj. IM SCH (16:12)
--- NOTE | 2021-09-07 19:00 | NUR ---
Received report from LOU Goff; questions answered; pt awake, not responding to commands, moans and WARNER when disturbed; remains in Covid isolation; VSS, sats good on 5L; good UO
[2021-09-07] MEDS: primidone 50mg tablet NG SCH (21:47)
[2021-09-07] MEDS: insulin glargine (Lantus) pen - multi-dose SQ SCH (22:25)
--- NOTE | 2021-09-07 22:30 | NUR ---
No change in status; sitter remains outside of covid room; pt on precedex gtt for agitation; remains in restraints; restraints were in place prior to shift change. BS high; covered per protocol and started lantus.
[2021-09-07] MEDS: dexmedetomidine inj. 400 MCG in normal saline 100ml IV soln 96 ML IV SCH (23:23)
[2021-09-08] VITALS (24 sets, daily range): BP systolic 125–177; BP diastolic 51–82
[2021-09-08] MEDS: hydrALAZINE 25 MG tablet NG SCH ×4 (00:23→23:35)
[2021-09-08] MEDS: docusate sodium 100mg/10ml UD cup NG SCH ×3 (00:23→20:20)
[2021-09-08] MEDS: piperacillin/tazo 3.375gm/50ml 50 ML IV SCH ×4 (00:24→23:36)
[2021-09-08] MEDS: dexamethasone 4mg/ml inj IV SCH ×4 (01:52→20:20)
[2021-09-08] MEDS: thiamine 100mg/ml 2ml inj. IM SCH ×4 (01:52→23:35)
[2021-09-08] MEDS: dexmedetomidine inj. 400 MCG in normal saline 100ml IV soln 96 ML IV SCH ×4 (02:33→21:15)
[2021-09-08] MEDS: insulin regular, human U-100 3ml vial - multi-dose SQ SCH ×3 (02:38→21:05)
[2021-09-08 03:03] LABS: BASOPHILS # (AUTO) 0.1 X10'3 (0-0.2); BASOPHILS % (AUTO) 1.1 % (0-1); EOSINOPHILS % (AUTO) 0 % (0-6); HEMATOCRIT 38.9 % (35.0-45.0); HEMOGLOBIN 12.5 g/dl (12.0-16.0); LYMPHOCYTES # (AUTO) 0.7 X10'3 (1.1-4.8); LYMPHOCYTES % (AUTO) 7.8 % (21-51); MEAN CORPUSCULAR HEMOGLOBIN 27.9 PG (27.0-31.0); MEAN CORPUSCULAR HGB CONC 32.2 g/dL (33.0-36.5); MEAN CORPUSCULAR VOLUME 86.7 FL (78-98); MEAN PLATELET VOLUME 10.2 FL (7.4-10.4); MONOCYTES # (AUTO) 0.5 X10'3 (0-0.9); MONOCYTES % (AUTO) 5.7 % (2-12); NEUTROPHILS # (AUTO) 7.1 X10'3 (1.8-7.7); NEUTROPHILS % (AUTO) 85.4 % (42-75); PLATELET COUNT 177 X10'3 (140-440); RED BLOOD COUNT 4.49 X10'6 (4.20-5.60); RED CELL DISTRIBUTION WIDTH 16.7 % (11.5-14.5); WHITE BLOOD COUNT 8.4 X10'3 (4.5-11.0)
[2021-09-08 03:19] LABS: ALANINE AMINOTRANSFERASE 41 U/L (12-78); ALBUMIN 2.1 G/DL (3.4-5.0); ALBUMIN/GLOBULIN RATIO 0.5 (1.1-1.5); ALKALINE PHOSPHATASE 91 IU/L (46-116); ANION GAP 5 (8-16); ASPARTATE AMINO TRANSFERASE 26 U/L (10-37); BILIRUBIN,TOTAL 0.5 MG/DL (0.1-1.0); BLOOD UREA NITROGEN 54 MG/DL (7-18); BUN/CREATININE RATIO 43.5 (6.6-38.0); CALCIUM 8.2 MG/DL (8.5-10.1); CHLORIDE 108 MMOL/L (99-107); CREATININE 1.24 MG/DL (0.40-0.90); GLUCOSE 330 MG/DL (70-104); POTASSIUM 3.7 MMOL/L (3.5-5.1); SODIUM 149 MMOL/L (135-145); TOTAL CARBON DIOXIDE 35.9 MMOL/L (24-32); eGFR 41 ML/MIN
--- NOTE | 2021-09-08 04:36 | NUR ---
HS care/linen change done; pt with minimal response; eyes open but not tracking or following any commands; will moan or pull away from stimuli; VSS, UO good; BS remain high;
--- NOTE | 2021-09-08 06:29 | NUR ---
Report given to LOU Faria; weaned down precedex slightly since pt so drowsy; sm brown stool x 1 earlier.
[2021-09-08] MEDS: levetiracetam inj 500 MG in normal saline 100ml IV soln 100 ML IV SCH ×2 (07:27→21:03)
[2021-09-08] MEDS: furosemide 40mg/4ml inj IV SCH (07:27)
[2021-09-08] MEDS: pantoprazole 40MG/NS 100ML BAG 100 ML IV SCH (07:27)
[2021-09-08] MEDS: citalopram 20mg tablet NG SCH (07:27)
[2021-09-08] MEDS: aspirin 325mg tablet NG SCH ×2 (07:27→20:20)
[2021-09-08] MEDS: POTASSIUM BICARBONATE/CIT AC 10 MEQ TABLET.EFF NG SCH (07:28)
[2021-09-08] MEDS: atorvastatin 20mg tablet NG SCH (07:28)
[2021-09-08] MEDS: metoprolol tartrate 25mg tablet NG SCH ×2 (07:28→20:24)
[2021-09-08] MEDS: losartan 50mg tablet NG SCH (07:28)
[2021-09-08] MEDS: enoxaparin 30mg/0.3ml syringe SUBCUT SCH (07:28)
[2021-09-08] MEDS: HYDROchlorothiazide 12.5mg capsule NG SCH (07:28)
[2021-09-08] MEDS: NYSTATIN CREAM - 30GM TUBE TP SCH ×3 (07:28→21:35)
[2021-09-08] MEDS: K and/or MAG REPLACEMENT MC SCH ×2 (08:00→20:00)
[2021-09-08] MEDS: MVI, adult No.4 with vit. K 10 ML in dextrose 5% water 500ml 500 ML IV SCH ×2 (08:44)
--- NOTE | 2021-09-08 11:12 | NUR ---
Dario Consult: Dario Hancock w/ skin intact per EMR. Addendum: 09/08/21 at [address] Amended: Links added.
[2021-09-08 13:45] LABS: ABG BASE EXCESS 10.7 mmol/L (-2.0-2.0); ABG HCO3 36.7 mmol/L (22.0-26.0); ABG OXYGEN SATURATION 95.6 % (94-97); ABG PCO2 (T) 53.1 mmHg (32.0-45.0); ABG PO2 (T) 78.9 mmHg (75.0-100.0); ALLEN'S TEST POSITIVE; FCOHb 0.4 % (0.0-3.9); FLOW 3 L/min; FMetHb 0.2 % (0.0-1.5); TOTAL HEMOGLOBIN 14.5 G/dl (12.0-16.0)
[2021-09-08] MEDS: insulin glargine (Lantus) pen - multi-dose SQ SCH (21:08)
[2021-09-08] MEDS: primidone 50mg tablet NG SCH (21:35)
[2021-09-09] VITALS (23 sets, daily range): BP systolic 113–191; BP diastolic 56–91
[2021-09-09] MEDS: insulin regular, human U-100 3ml vial - multi-dose SQ SCH ×4 (02:02→21:15)
[2021-09-09 02:20] LABS: BASOPHILS # (AUTO) 0.1 X10'3 (0-0.2); BASOPHILS % (AUTO) 0.4 % (0-1); EOSINOPHILS % (AUTO) 0 % (0-6); HEMATOCRIT 42.6 % (35.0-45.0); HEMOGLOBIN 13.8 g/dl (12.0-16.0); LYMPHOCYTES # (AUTO) 0.8 X10'3 (1.1-4.8); LYMPHOCYTES % (AUTO) 5.8 % (21-51); MEAN CORPUSCULAR HEMOGLOBIN 27.8 PG (27.0-31.0); MEAN CORPUSCULAR HGB CONC 32.5 g/dL (33.0-36.5); MEAN CORPUSCULAR VOLUME 85.7 FL (78-98); MEAN PLATELET VOLUME 9.9 FL (7.4-10.4); MONOCYTES # (AUTO) 0.8 X10'3 (0-0.9); MONOCYTES % (AUTO) 5.5 % (2-12); NEUTROPHILS # (AUTO) 12.3 X10'3 (1.8-7.7); NEUTROPHILS % (AUTO) 88.3 % (42-75); PLATELET COUNT 198 X10'3 (140-440); RED BLOOD COUNT 4.96 X10'6 (4.20-5.60); RED CELL DISTRIBUTION WIDTH 16.7 % (11.5-14.5); WHITE BLOOD COUNT 13.9 X10'3 (4.5-11.0)
[2021-09-09 02:34] LABS: ALANINE AMINOTRANSFERASE 37 U/L (12-78); ALBUMIN 2.3 G/DL (3.4-5.0); ALBUMIN/GLOBULIN RATIO 0.5 (1.1-1.5); ALKALINE PHOSPHATASE 114 IU/L (46-116); ANION GAP 1 (8-16); ASPARTATE AMINO TRANSFERASE 23 U/L (10-37); BILIRUBIN,TOTAL 0.6 MG/DL (0.1-1.0); BLOOD UREA NITROGEN 40 MG/DL (7-18); BUN/CREATININE RATIO 39.2 (6.6-38.0); CALCIUM 8.6 MG/DL (8.5-10.1); CHLORIDE 104 MMOL/L (99-107); CREATININE 1.02 MG/DL (0.40-0.90); GLUCOSE 230 MG/DL (70-104); POTASSIUM 3.1 MMOL/L (3.5-5.1); SODIUM 144 MMOL/L (135-145); TOTAL CARBON DIOXIDE 39.2 MMOL/L (24-32); TOTAL PROTEIN 6.5 G/DL (6.4-8.2); eGFR 52 ML/MIN
[2021-09-09] MEDS: dexmedetomidine inj. 400 MCG in normal saline 100ml IV soln 96 ML IV SCH ×4 (03:10→20:34)
[2021-09-09] MEDS: dexamethasone 4mg/ml inj IV SCH ×3 (03:12→14:54)
[2021-09-09] MEDS: potassium Cl 20mEq/100mL bag 100 ML IV PRN ×2 (04:10→05:32)
[2021-09-09] MEDS: pantoprazole 40MG/NS 100ML BAG 100 ML IV SCH (07:38)
[2021-09-09] MEDS: piperacillin/tazo 3.375gm/50ml 50 ML IV SCH ×2 (07:38→16:32)
[2021-09-09] MEDS: levetiracetam inj 500 MG in normal saline 100ml IV soln 100 ML IV SCH ×2 (07:38→20:33)
[2021-09-09] MEDS: enoxaparin 30mg/0.3ml syringe SUBCUT SCH (07:39)
[2021-09-09] MEDS: POTASSIUM BICARBONATE/CIT AC 10 MEQ TABLET.EFF NG SCH (07:39)
[2021-09-09] MEDS: aspirin 325mg tablet NG SCH ×2 (07:40→20:33)
[2021-09-09] MEDS: HYDROchlorothiazide 12.5mg capsule NG SCH (07:40)
[2021-09-09] MEDS: docusate sodium 100mg/10ml UD cup NG SCH ×2 (07:40→20:00)
[2021-09-09] MEDS: atorvastatin 20mg tablet NG SCH (07:40)
[2021-09-09] MEDS: losartan 50mg tablet NG SCH (07:41)
[2021-09-09] MEDS: hydrALAZINE 25 MG tablet NG SCH ×2 (07:41→16:32)
[2021-09-09] MEDS: metoprolol tartrate 25mg tablet NG SCH ×2 (07:41→20:31)
[2021-09-09] MEDS: thiamine 100mg/ml 2ml inj. IM SCH ×2 (07:43→16:32)
[2021-09-09] MEDS: citalopram 20mg tablet NG SCH (07:43)
[2021-09-09] MEDS: furosemide 40mg/4ml inj IV SCH (07:43)
[2021-09-09] MEDS: K and/or MAG REPLACEMENT MC SCH ×2 (07:51→20:00)
[2021-09-09] MEDS: NYSTATIN CREAM - 30GM TUBE TP SCH ×3 (07:51→21:00)
[2021-09-09 08:50] LABS: MAGNESIUM 1.9 MG/DL (1.5-2.4); PHOSPHORUS 2.1 MG/DL (2.3-4.5)
--- NOTE | 2021-09-09 09:21 | NUR ---
Reassessment: Pt remains NPO and tolerating TF at goal rate with GRV WNL. Serum Na now WNL and pt continues receiving 200 mL water flushes Q4H. LBM 09/08, first BM since 09/03 per EMR. No changes to nutrition recommendations at this time. Will continue to follow. Recommendations: 1. Continuous TF per MD using Pivot 1.5 at 43ml/hr goal; to provide 1032ml volume/day, 1548 kcals, 774ml water, and 97g protein. 2. Additional 200 mL water flush Q4H; monitor serum Na 3. PALB Q /; daily wts 4. Routine bowel care 5. Advance diet as medically indicated to regular per HAT MARKER/MD recs Addendum: 09/09/21 at [address] Amended: Links added.
[2021-09-09] MEDS: primidone 50mg tablet NG SCH (20:33)
[2021-09-09] MEDS: QUEtiapine 25mg tablet PO SCH (20:33)
[2021-09-09] MEDS: insulin glargine (Lantus) pen - multi-dose SQ SCH (21:16)
[2021-09-10] VITALS (21 sets, daily range): BP systolic 72–192; BP diastolic 39–92
[2021-09-10] MEDS: thiamine 100mg/ml 2ml inj. IM SCH ×3 (00:19→16:12)
[2021-09-10] MEDS: piperacillin/tazo 3.375gm/50ml 50 ML IV SCH ×3 (00:19→16:12)
[2021-09-10] MEDS: hydrALAZINE 25 MG tablet NG SCH ×3 (00:20→16:13)
[2021-09-10] MEDS: insulin regular, human U-100 3ml vial - multi-dose SQ SCH ×4 (02:07→20:36)
[2021-09-10 03:01] LABS: BASOPHILS % (AUTO) 0.4 % (0-1); EOSINOPHILS % (AUTO) 0.3 % (0-6); HEMATOCRIT 42.6 % (35.0-45.0); HEMOGLOBIN 13.8 g/dl (12.0-16.0); LYMPHOCYTES # (AUTO) 1.1 X10'3 (1.1-4.8); LYMPHOCYTES % (AUTO) 9.2 % (21-51); MEAN CORPUSCULAR HEMOGLOBIN 27.7 PG (27.0-31.0); MEAN CORPUSCULAR HGB CONC 32.4 g/dL (33.0-36.5); MEAN CORPUSCULAR VOLUME 85.7 FL (78-98); MEAN PLATELET VOLUME 9.8 FL (7.4-10.4); MONOCYTES # (AUTO) 0.6 X10'3 (0-0.9); MONOCYTES % (AUTO) 5.2 % (2-12); NEUTROPHILS # (AUTO) 10.5 X10'3 (1.8-7.7); NEUTROPHILS % (AUTO) 84.9 % (42-75); PLATELET COUNT 174 X10'3 (140-440); RED BLOOD COUNT 4.97 X10'6 (4.20-5.60); RED CELL DISTRIBUTION WIDTH 16.6 % (11.5-14.5); WHITE BLOOD COUNT 12.4 X10'3 (4.5-11.0)
[2021-09-10 03:15] LABS: ALANINE AMINOTRANSFERASE 28 U/L (12-78); ALBUMIN 2.1 G/DL (3.4-5.0); ALBUMIN/GLOBULIN RATIO 0.5 (1.1-1.5); ALKALINE PHOSPHATASE 102 IU/L (46-116); ANION GAP 1 (8-16); ASPARTATE AMINO TRANSFERASE 22 U/L (10-37); BILIRUBIN,TOTAL 0.6 MG/DL (0.1-1.0); BLOOD UREA NITROGEN 39 MG/DL (7-18); CALCIUM 8.5 MG/DL (8.5-10.1); CHLORIDE 100 MMOL/L (99-107); GLUCOSE 279 MG/DL (70-104); POTASSIUM 3.5 MMOL/L (3.5-5.1); SODIUM 140 MMOL/L (135-145); TOTAL PROTEIN 6.1 G/DL (6.4-8.2); eGFR 53 ML/MIN
[2021-09-10] MEDS: dexmedetomidine inj. 400 MCG in normal saline 100ml IV soln 96 ML IV PRN ×2 (03:15→18:36)
[2021-09-10 07:09] LABS: PHOSPHORUS 3.5 MG/DL (2.3-4.5)
[2021-09-10] MEDS: K and/or MAG REPLACEMENT MC SCH ×2 (08:00→20:00)
[2021-09-10] MEDS: dexamethasone 4mg/ml inj IV SCH (08:31)
[2021-09-10] MEDS: furosemide 40mg/4ml inj IV SCH (08:31)
[2021-09-10] MEDS: pantoprazole 40MG/NS 100ML BAG 100 ML IV SCH (08:31)
[2021-09-10] MEDS: aspirin 325mg tablet NG SCH ×2 (08:32→20:04)
[2021-09-10] MEDS: HYDROchlorothiazide 12.5mg capsule NG SCH (08:32)
[2021-09-10] MEDS: docusate sodium 100mg/10ml UD cup NG SCH ×2 (08:32→20:00)
[2021-09-10] MEDS: citalopram 20mg tablet NG SCH (08:32)
[2021-09-10] MEDS: metoprolol tartrate 25mg tablet NG SCH ×2 (08:32→20:04)
[2021-09-10] MEDS: atorvastatin 20mg tablet NG SCH (08:32)
[2021-09-10] MEDS: losartan 50mg tablet NG SCH (08:32)
[2021-09-10] MEDS: POTASSIUM BICARBONATE/CIT AC 10 MEQ TABLET.EFF NG SCH (08:32)
[2021-09-10] MEDS: QUEtiapine 25mg tablet PO SCH ×2 (08:32→20:03)
[2021-09-10] MEDS: enoxaparin 30mg/0.3ml syringe SUBCUT SCH (08:33)
[2021-09-10] MEDS: NYSTATIN CREAM - 30GM TUBE TP SCH ×3 (08:33→21:00)
[2021-09-10] MEDS: levetiracetam inj 500 MG in normal saline 100ml IV soln 100 ML IV SCH ×2 (09:00→20:03)
--- NOTE | 2021-09-10 12:45 | NUR ---
Continuous EEG disconnected. Pt tolerated well.
[2021-09-10] MEDS: HYDROcodone/acetaminophen 5mg/325mg tablet PO PRN ×2 (16:21→20:34)
[2021-09-10] MEDS: hydrALAZINE 20mg/ml inj. IV PRN (16:37)
[2021-09-10] MEDS: primidone 50mg tablet NG SCH (20:33)
[2021-09-10] MEDS: insulin glargine (Lantus) pen - multi-dose SQ SCH (20:37)
--- NOTE | 2021-09-10 21:00 | NUR ---
BPS low after lopressor. Pt drowsy and cooperative at this time. Precedex weaned to 0.4 mcg/kg/min at this time
--- NOTE | 2021-09-10 22:20 | NUR ---
BP remains low, Precedex weaned to 0.3 mcg/kg/min
--- NOTE | 2021-09-10 22:45 | NUR ---
BPS 77 Precedex off at this time. Call in to Dr. Sanchez with orders noted 1st bottle of 250ml 5% albumin started at this time
--- NOTE | 2021-09-10 23:00 | NUR ---
Pt's temp dropping to 35.8 via esophageal probe. Camila De León on at this time.
[2021-09-10] MEDS ORDERED: albumin (Human) 5% 250ml 250 ML IV ONE ×2 (23:05)
[2021-09-10] MEDS ORDERED: NORepinephrine 8mg/ 250ml NS 250 ML IV SCH (23:05)
[2021-09-10] MEDS ORDERED: albumin (Human) 5% 250ml 500 ML IV ONE (23:09)
[2021-09-11] VITALS (23 sets, daily range): BP systolic 108–165; BP diastolic 47–86
[2021-09-11] MEDS: thiamine 100mg/ml 2ml inj. IM SCH ×4 (00:30→23:40)
[2021-09-11] MEDS: piperacillin/tazo 3.375gm/50ml 50 ML IV SCH ×4 (00:30→23:39)
[2021-09-11] MEDS: insulin regular, human U-100 3ml vial - multi-dose SQ SCH ×3 (02:03→21:03)
[2021-09-11] MEDS: HYDROcodone/acetaminophen 5mg/325mg tablet PO PRN ×2 (03:06→18:51)
[2021-09-11 06:00] LABS: BASOPHILS % (AUTO) 0.1 % (0-1); EOSINOPHILS # (AUTO) 0.1 X10'3 (0-0.9); EOSINOPHILS % (AUTO) 0.4 % (0-6); LYMPHOCYTES # (AUTO) 1.3 X10'3 (1.1-4.8); LYMPHOCYTES % (AUTO) 7.5 % (21-51); MEAN CORPUSCULAR HEMOGLOBIN 27.6 PG (27.0-31.0); MEAN CORPUSCULAR HGB CONC 31.9 g/dL (33.0-36.5); MEAN CORPUSCULAR VOLUME 86.6 FL (78-98); MEAN PLATELET VOLUME 10.1 FL (7.4-10.4); MONOCYTES # (AUTO) 1.2 X10'3 (0-0.9); MONOCYTES % (AUTO) 7.2 % (2-12); NEUTROPHILS # (AUTO) 14.4 X10'3 (1.8-7.7); NEUTROPHILS % (AUTO) 84.8 % (42-75); PLATELET COUNT 177 X10'3 (140-440); RED BLOOD COUNT 5.08 X10'6 (4.20-5.60); RED CELL DISTRIBUTION WIDTH 16.9 % (11.5-14.5)
[2021-09-11 06:12] LABS: ALANINE AMINOTRANSFERASE 42 U/L (12-78); ALBUMIN 2.8 G/DL (3.4-5.0); ALBUMIN/GLOBULIN RATIO 0.7 (1.1-1.5); ALKALINE PHOSPHATASE 93 IU/L (46-116); ANION GAP 1 (8-16); ASPARTATE AMINO TRANSFERASE 35 U/L (10-37); BILIRUBIN,TOTAL 0.6 MG/DL (0.1-1.0); BLOOD UREA NITROGEN 56 MG/DL (7-18); BUN/CREATININE RATIO 43.4 (6.6-38.0); CHLORIDE 101 MMOL/L (99-107); CREATININE 1.29 MG/DL (0.40-0.90); GLUCOSE 126 MG/DL (70-104); MAGNESIUM 2.3 MG/DL (1.5-2.4); PHOSPHORUS 4.5 MG/DL (2.3-4.5); POTASSIUM 3.2 MMOL/L (3.5-5.1); PREALBUMIN 26.6 MG/DL (19-36); SODIUM 140 MMOL/L (135-145); TOTAL CARBON DIOXIDE 37.8 MMOL/L (24-32); TOTAL PROTEIN 6.7 G/DL (6.4-8.2); TRIGLYCERIDES 182 MG/DL (20-135); eGFR 39 ML/MIN
[2021-09-11] MEDS: K and/or MAG REPLACEMENT MC SCH ×2 (08:00→20:00)
[2021-09-11 08:10] LABS: ANISOCYTOSIS 1+; PLATELET ESTIMATE NORMAL; TOTAL CELLS COUNTED 100
[2021-09-11 08:11] LABS: STOMATOCYTES 1+
[2021-09-11] MEDS: furosemide 40mg/4ml inj IV SCH (08:51)
[2021-09-11] MEDS: docusate sodium 100mg/10ml UD cup NG SCH ×2 (08:51→20:00)
[2021-09-11] MEDS: dexamethasone 4mg/ml inj IV SCH (08:51)
[2021-09-11] MEDS: aspirin 325mg tablet NG SCH ×2 (08:52→20:37)
[2021-09-11] MEDS: atorvastatin 20mg tablet NG SCH (08:52)
[2021-09-11] MEDS: citalopram 20mg tablet NG SCH (08:52)
[2021-09-11] MEDS: QUEtiapine 25mg tablet PO SCH ×2 (08:53→20:38)
[2021-09-11] MEDS: enoxaparin 30mg/0.3ml syringe SUBCUT SCH (08:55)
[2021-09-11] MEDS: hydrALAZINE 25 MG tablet NG SCH ×4 (08:57→23:40)
[2021-09-11] MEDS: HYDROchlorothiazide 12.5mg capsule NG SCH (08:57)
[2021-09-11] MEDS: pantoprazole 40MG/NS 100ML BAG 100 ML IV SCH (08:57)
[2021-09-11] MEDS: POTASSIUM BICARBONATE/CIT AC 10 MEQ TABLET.EFF NG SCH (08:57)
[2021-09-11] MEDS: levetiracetam inj 500 MG in normal saline 100ml IV soln 100 ML IV SCH ×2 (08:58→20:36)
[2021-09-11] MEDS: losartan 50mg tablet NG SCH (08:58)
[2021-09-11] MEDS: metoprolol tartrate 25mg tablet NG SCH ×2 (08:59→20:37)
[2021-09-11] MEDS: NYSTATIN CREAM - 30GM TUBE TP SCH ×3 (08:59→21:00)
[2021-09-11] MEDS: ipratropium/albuterol 3ml nebule NEB PRN (20:46)
--- NOTE | 2021-09-11 21:00 | NUR ---
Pt awake, anxious, with c/o increasing sob. coughing thick, tenacious, brown secretions. RT at bedside, O2sat 84%. RT gave breathing treatment, medicated with her scheduled seroquel, repositioned with HOB in hi-nice's. NC changed to HiFlow NC at 12 l/min.
[2021-09-11] MEDS: insulin glargine (Lantus) pen - multi-dose SQ SCH (21:04)
--- NOTE | 2021-09-11 21:30 | NUR ---
pt sleeping quietly, O2 weaned to 8L
[2021-09-11] MEDS: primidone 50mg tablet NG SCH (22:12)
[2021-09-12] VITALS (24 sets, daily range): BP systolic 129–179; BP diastolic 57–86
[2021-09-12] MEDS: insulin regular, human U-100 3ml vial - multi-dose SQ SCH ×4 (02:37→21:16)
[2021-09-12] MEDS: hydrALAZINE 20mg/ml inj. IV PRN (05:46)
[2021-09-12 06:12] LABS: BASOPHILS % (AUTO) 0.3 % (0-1); EOSINOPHILS # (AUTO) 0.1 X10'3 (0-0.9); EOSINOPHILS % (AUTO) 0.4 % (0-6); HEMATOCRIT 45.6 % (35.0-45.0); HEMOGLOBIN 14.6 g/dl (12.0-16.0); LYMPHOCYTES % (AUTO) 5.2 % (21-51); MEAN CORPUSCULAR HEMOGLOBIN 28.1 PG (27.0-31.0); MEAN CORPUSCULAR VOLUME 87.8 FL (78-98); MONOCYTES # (AUTO) 1.2 X10'3 (0-0.9); MONOCYTES % (AUTO) 6.8 % (2-12); NEUTROPHILS # (AUTO) 16.1 X10'3 (1.8-7.7); NEUTROPHILS % (AUTO) 87.3 % (42-75); PLATELET COUNT 164 X10'3 (140-440); RED CELL DISTRIBUTION WIDTH 17.1 % (11.5-14.5); WHITE BLOOD COUNT 18.4 X10'3 (4.5-11.0)
[2021-09-12 06:30] LABS: ALANINE AMINOTRANSFERASE 39 U/L (12-78); ALBUMIN 2.5 G/DL (3.4-5.0); ALBUMIN/GLOBULIN RATIO 0.6 (1.1-1.5); ALKALINE PHOSPHATASE 101 IU/L (46-116); ANION GAP 5 (8-16); ASPARTATE AMINO TRANSFERASE 31 U/L (10-37); BILIRUBIN,TOTAL 0.6 MG/DL (0.1-1.0); BLOOD UREA NITROGEN 63 MG/DL (7-18); BUN/CREATININE RATIO 57.3 (6.6-38.0); CHLORIDE 102 MMOL/L (99-107); GLUCOSE 250 MG/DL (70-104); MAGNESIUM 2.6 MG/DL (1.5-2.4); PHOSPHORUS 2.8 MG/DL (2.3-4.5); SODIUM 144 MMOL/L (135-145); TOTAL CARBON DIOXIDE 36.8 MMOL/L (24-32); TOTAL PROTEIN 6.6 G/DL (6.4-8.2); eGFR 47 ML/MIN
[2021-09-12] MEDS: LORazepam 2 mg/ml vial IV PRN (06:40)
[2021-09-12] MEDS: HYDROcodone/acetaminophen 5mg/325mg tablet PO PRN ×2 (06:41→21:04)
[2021-09-12] MEDS: levetiracetam inj 500 MG in normal saline 100ml IV soln 100 ML IV SCH ×2 (06:41→19:11)
[2021-09-12] MEDS: piperacillin/tazo 3.375gm/50ml 50 ML IV SCH ×2 (06:41→15:14)
[2021-09-12] MEDS: pantoprazole 40MG/NS 100ML BAG 100 ML IV SCH (07:25)
[2021-09-12] MEDS: furosemide 40mg/4ml inj IV SCH (07:37)
[2021-09-12] MEDS: K and/or MAG REPLACEMENT MC SCH ×2 (08:00→20:00)
[2021-09-12] MEDS: NYSTATIN CREAM - 30GM TUBE TP SCH ×3 (08:00→21:17)
--- NOTE | 2021-09-12 08:00 | NUR ---
CHANGE IN RESPIRATORY CONDITION. PATIENT C/O AIR HUNGER. SPO2 REPOSITIONED 72% ON 4L N/C. CHEST XRAY OBTAINED LASIX 40MG ORDERED. ABD SINGLE VIEW OBTAINED. ATIVAN 1MG ORDERED. 15L NON-REBREATHER APPLIED. R/T NOTIFIED. MD REQUESTED AT BEDSIDE.
[2021-09-12] MEDS: hydrALAZINE 25 MG tablet NG SCH ×2 (08:49→15:14)
[2021-09-12] MEDS: docusate sodium 100mg/10ml UD cup NG SCH ×2 (08:49→19:09)
[2021-09-12] MEDS: enoxaparin 30mg/0.3ml syringe SUBCUT SCH (08:50)
[2021-09-12] MEDS: QUEtiapine 25mg tablet PO SCH ×2 (08:50→19:09)
[2021-09-12] MEDS: aspirin 325mg tablet NG SCH ×2 (08:50→19:09)
[2021-09-12] MEDS: metoprolol tartrate 25mg tablet NG SCH ×2 (08:51→19:10)
[2021-09-12] MEDS: HYDROchlorothiazide 12.5mg capsule NG SCH (08:51)
[2021-09-12] MEDS: atorvastatin 20mg tablet NG SCH (08:51)
[2021-09-12] MEDS: losartan 50mg tablet NG SCH (08:52)
[2021-09-12] MEDS: dexamethasone 4mg/ml inj IV SCH (08:53)
[2021-09-12] MEDS: thiamine 100mg/ml 2ml inj. IM SCH ×2 (08:53→15:13)
[2021-09-12] MEDS: citalopram 20mg tablet NG SCH (08:54)
[2021-09-12] MEDS: POTASSIUM BICARBONATE/CIT AC 10 MEQ TABLET.EFF NG SCH (09:10)
[2021-09-12] MEDS: MVI, adult No.4 with vit. K 10 ML in dextrose 5% water 500ml 500 ML IV SCH ×2 (09:10)
--- NOTE | 2021-09-12 11:33 | NUR ---
F/u 09/12: Pt remains NPO tolerating TF at goal GRV WNL. Rectal tube -300mL past 24 hours receiving routine colace per EMR. Pt increase in SOB may require BIPAP today per MD at rounds. Noted Glu fluctuations 102-335mg/dl past 24 hours; SKYLAR d/w RN and MD pt reported home Lantus regimen 45 units AM and 35 units. Glu likely impacted by Decadron as well. SKYLAR villeda/w managing member regarding long-term nutrition status if pt remains unsafe for PO may benefit from PEG IF within POC. Will monitor for further nutrition intervention needs this admit. Recommendations: 1. Continuous TF per MD using Pivot 1.5 at 43ml/hr goal; to provide 1032ml volume/day, 1548 kcals, 774ml water, and 97g protein. 2. Additional 200 mL water flush Q4H; monitor serum Na 3. PALB Q /; daily wts 4. Routine bowel care 5. Advance diet as medically indicated to regular per CARE TEAM ASSISTANT/MD recs 6. IF pt remains unsafe for PO may benefit from PEG for long-term nutrition needs IF within POC Addendum: 09/12/21 at [address] Amended: Links added.
[2021-09-12 12:03] LABS: ABG BASE EXCESS 7.5 mmol/L (-2.0-2.0); ABG HCO3 33.2 mmol/L (22.0-26.0); ABG OXYGEN SATURATION 92.4 % (94-97); ABG PCO2 (T) 49.1 mmHg (32.0-45.0); ABG PO2 (T) 61.5 mmHg (75.0-100.0); ALLEN'S TEST POSITIVE; FCOHb 0.2 % (0.0-3.9); FMetHb 0.3 % (0.0-1.5); FO2Hb 91.9 % (94-97); PATIENT TEMPERATURE 36.7; RESPIRATORY RATE 10 b/min; TIDAL VOLUME 508 mL; TOTAL HEMOGLOBIN 15.8 G/dl (12.0-16.0)
--- NOTE | 2021-09-12 12:25 | NUR ---
MRI on hold until further notice per
[2021-09-12] MEDS ORDERED: tPA-cathflo 2 MG/2 ml IV flush IVF ONE (18:50)
--- NOTE | 2021-09-12 19:50 | NUR ---
Triple lumen PICC to LUE, all 3 ports flush without resistance, but unable to obtain blood flow from any. Spoke with Dr. Dove and orders noted for cathflo. Cathflo to medrano port at this time.
[2021-09-12] MEDS: primidone 50mg tablet NG SCH (21:03)
[2021-09-12] MEDS: insulin glargine (Lantus) pen - multi-dose SQ SCH (21:17)
--- NOTE | 2021-09-12 21:32 | NUR ---
pt confused, lethargic on bipap at change of shift. far less aware and conversant than yesterday. Marked weakness noted. repositioned for comfort. Sitter at bedside. Restraints remain off at this time.
--- NOTE | 2021-09-12 21:35 | NUR ---
Good blood flow obtained from medrano port. flushed with 20 ml NS and tko IV infusing to port. Nicole procedure well. good results obtained.
[2021-09-13] VITALS (16 sets, daily range): BP systolic 101–164; BP diastolic 46–69
[2021-09-13] MEDS: thiamine 100mg/ml 2ml inj. IM SCH ×4 (00:33→23:46)
[2021-09-13] MEDS: hydrALAZINE 25 MG tablet NG SCH ×4 (00:33→23:43)
[2021-09-13] MEDS: piperacillin/tazo 3.375gm/50ml 50 ML IV SCH ×4 (00:34→23:43)
[2021-09-13] MEDS: insulin regular, human U-100 3ml vial - multi-dose SQ SCH ×4 (02:08→21:01)
[2021-09-13 02:55] LABS: BASOPHILS % (AUTO) 0.2 % (0-1); EOSINOPHILS # (AUTO) 0.1 X10'3 (0-0.9); EOSINOPHILS % (AUTO) 0.3 % (0-6); HEMATOCRIT 41.5 % (35.0-45.0); HEMOGLOBIN 13.4 g/dl (12.0-16.0); LYMPHOCYTES # (AUTO) 1.1 X10'3 (1.1-4.8); LYMPHOCYTES % (AUTO) 5.8 % (21-51); MEAN CORPUSCULAR HEMOGLOBIN 27.9 PG (27.0-31.0); MEAN CORPUSCULAR HGB CONC 32.2 g/dL (33.0-36.5); MEAN CORPUSCULAR VOLUME 86.6 FL (78-98); MEAN PLATELET VOLUME 10.2 FL (7.4-10.4); MONOCYTES # (AUTO) 1.1 X10'3 (0-0.9); MONOCYTES % (AUTO) 5.9 % (2-12); NEUTROPHILS # (AUTO) 16.4 X10'3 (1.8-7.7); NEUTROPHILS % (AUTO) 87.8 % (42-75); PLATELET COUNT 189 X10'3 (140-440); RED BLOOD COUNT 4.79 X10'6 (4.20-5.60); RED CELL DISTRIBUTION WIDTH 17.3 % (11.5-14.5); WHITE BLOOD COUNT 18.6 X10'3 (4.5-11.0)
[2021-09-13 03:06] LABS: ALANINE AMINOTRANSFERASE 40 U/L (12-78); ALBUMIN 2.3 G/DL (3.4-5.0); ALBUMIN/GLOBULIN RATIO 0.6 (1.1-1.5); ALKALINE PHOSPHATASE 95 IU/L (46-116); ANION GAP -1 (8-16); ASPARTATE AMINO TRANSFERASE 34 U/L (10-37); BILIRUBIN,TOTAL 0.6 MG/DL (0.1-1.0); BLOOD UREA NITROGEN 57 MG/DL (7-18); BUN/CREATININE RATIO 54.8 (6.6-38.0); CALCIUM 8.8 MG/DL (8.5-10.1); CHLORIDE 101 MMOL/L (99-107); CREATININE 1.04 MG/DL (0.40-0.90); GLUCOSE 196 MG/DL (70-104); MAGNESIUM 2.3 MG/DL (1.5-2.4); PHOSPHORUS 2.5 MG/DL (2.3-4.5); POTASSIUM 3.7 MMOL/L (3.5-5.1); SODIUM 139 MMOL/L (135-145); TOTAL CARBON DIOXIDE 38.5 MMOL/L (24-32); TOTAL PROTEIN 6.3 G/DL (6.4-8.2); eGFR 50 ML/MIN
[2021-09-13] MEDS: LORazepam 2 mg/ml vial IV PRN (03:33)
[2021-09-13] MEDS: HYDROcodone/acetaminophen 5mg/325mg tablet PO PRN ×2 (03:34→20:55)
[2021-09-13] MEDS: NYSTATIN CREAM - 30GM TUBE TP SCH ×3 (07:57→20:56)
[2021-09-13] MEDS: pantoprazole 40MG/NS 100ML BAG 100 ML IV SCH (09:10)
[2021-09-13] MEDS: levetiracetam inj 500 MG in normal saline 100ml IV soln 100 ML IV SCH ×2 (09:10→21:07)
[2021-09-13] MEDS: enoxaparin 30mg/0.3ml syringe SUBCUT SCH (09:11)
[2021-09-13] MEDS: furosemide 40mg/4ml inj IV SCH (09:11)
[2021-09-13] MEDS: dexamethasone 4mg/ml inj IV SCH (09:11)
[2021-09-13] MEDS: docusate sodium 100mg/10ml UD cup NG SCH ×3 (09:12→20:57)
[2021-09-13] MEDS: POTASSIUM BICARBONATE/CIT AC 10 MEQ TABLET.EFF NG SCH (09:12)
[2021-09-13] MEDS: metoprolol tartrate 25mg tablet NG SCH ×2 (09:13→20:54)
[2021-09-13] MEDS: atorvastatin 20mg tablet NG SCH (09:13)
[2021-09-13] MEDS: QUEtiapine 25mg tablet PO SCH ×2 (09:14→20:54)
[2021-09-13] MEDS: aspirin 325mg tablet NG SCH ×2 (09:14→20:53)
[2021-09-13] MEDS: HYDROchlorothiazide 12.5mg capsule NG SCH (09:14)
[2021-09-13] MEDS: losartan 50mg tablet NG SCH (09:14)
[2021-09-13] MEDS: citalopram 20mg tablet NG SCH (09:15)
[2021-09-13] MEDS: K and/or MAG REPLACEMENT MC SCH ×2 (09:15→20:00)
--- NOTE | 2021-09-13 15:04 | NUR ---
Problems reprioritized. Patient report given, questions answered & plan of care reviewed with Dean hicks.
[2021-09-13] MEDS: primidone 50mg tablet NG SCH (20:52)
[2021-09-13] MEDS: insulin glargine (Lantus) pen - multi-dose SQ SCH (21:02)
[2021-09-14] MEDS: insulin regular, human U-100 3ml vial - multi-dose SQ SCH ×2 (02:05→23:48)
[2021-09-14 06:00] VITALS: BP 150/45
--- NOTE | 2021-09-14 06:28 | NUR ---
Problems reprioritized. Patient report given, questions answered & plan of care reviewed with Stephanie BLAKE.
[2021-09-14] MEDS: HYDROcodone/acetaminophen 5mg/325mg tablet PO PRN (07:57)
[2021-09-14] MEDS: docusate sodium 100mg/10ml UD cup NG SCH ×2 (08:00→20:09)
[2021-09-14] MEDS: dextrose 50%-water 50ml dispensing syringe IV PRN (08:27)
[2021-09-14] MEDS: dexamethasone 4mg/ml inj IV SCH (08:51)
[2021-09-14] MEDS: pantoprazole 40MG/NS 100ML BAG 100 ML IV SCH (08:51)
[2021-09-14] MEDS: thiamine 100mg/ml 2ml inj. IM SCH ×2 (08:51→16:00)
[2021-09-14] MEDS: levetiracetam inj 500 MG in normal saline 100ml IV soln 100 ML IV SCH ×2 (08:51→20:08)
[2021-09-14] MEDS: hydrALAZINE 25 MG tablet NG SCH ×2 (08:52→16:00)
[2021-09-14] MEDS: aspirin 325mg tablet NG SCH ×2 (08:52→20:09)
[2021-09-14] MEDS: piperacillin/tazo 3.375gm/50ml 50 ML IV SCH ×2 (08:52→20:08)
[2021-09-14] MEDS: citalopram 20mg tablet NG SCH (08:52)
[2021-09-14] MEDS: metoprolol tartrate 25mg tablet NG SCH ×2 (08:53→20:13)
[2021-09-14] MEDS: POTASSIUM BICARBONATE/CIT AC 10 MEQ TABLET.EFF NG SCH (08:53)
[2021-09-14] MEDS: atorvastatin 20mg tablet NG SCH (08:53)
[2021-09-14] MEDS: losartan 50mg tablet NG SCH (08:53)
[2021-09-14] MEDS: HYDROchlorothiazide 12.5mg capsule NG SCH (08:54)
[2021-09-14] MEDS: NYSTATIN CREAM - 30GM TUBE TP SCH ×3 (08:54→20:30)
[2021-09-14] MEDS: enoxaparin 30mg/0.3ml syringe SUBCUT SCH (08:54)
[2021-09-14] MEDS: furosemide 40mg/4ml inj IV SCH (08:54)
[2021-09-14] MEDS: QUEtiapine 25mg tablet PO SCH ×2 (08:54→20:09)
[2021-09-14 11:00] VITALS: BP 107/46
--- NOTE | 2021-09-14 13:00 | NUR ---
PRESSURE ULCER EDUCATION: DEFINITION: A pressure ulcer is an area of skin that breaks down when you stay in one position too long. The constant pressure against the skin reduces the blood flow to that area and the affected tissue dies. CAUSES: "Being bedridden or in a wheelchair "Fragile skin "Having a chronic condition, such as diabetes or vascular disease "Inability to move certain parts of your body without assistance "Older age "Incontinence of urine or stool SYMPTOMS: "A reddened area that DOES NOT turn white when pressed on - this can be the beginning of a pressure ulcer "A blister, deep sore or a crater - these can be advanced pressure ulcers FIRST AID: "Relieve the pressure on this area "Keep the area clean and dry "Call your primary doctor if you see any of the above symptoms "DO NOT massage the area "DO NOT use a donut shaped or ring shaped pillow- these actually interfere with the blood flow and cause complications PREVENTION: "Check for pressure ulcers everyday "Change position at least every two hours to relieve pressure "Use items that help relieve pressure- pillows, sheepskin, foam padding, and powders. "Keep skin clean and dry "Eat healthy well balanced meals "Exercise daily IF YOU SEE ANY OF THESE SYMPTOMS WHILE IN THE HOSPITAL - TELL YOUR NURSE IMMEDIATELY. IF YOU SEE ANY OF THESE SYMPTOMS WHILE AT HOME OR HAVE ANY QUESTIONS OR CONCERNS ABOUT PRESSURE ULCERS - CALL YOUR PRIMARY DOCTOR IMMEDIATELY. Addendum: 09/14/21 at 1301 by Michelle Hickman LVN Amended: Links added.
[2021-09-14 13:02] LABS: ALANINE AMINOTRANSFERASE 38 U/L (12-78); ALBUMIN 2.4 G/DL (3.4-5.0); ALBUMIN/GLOBULIN RATIO 0.6 (1.1-1.5); ALKALINE PHOSPHATASE 95 IU/L (46-116); ANION GAP 3 (8-16); ASPARTATE AMINO TRANSFERASE 30 U/L (10-37); BILIRUBIN,TOTAL 0.7 MG/DL (0.1-1.0); BLOOD UREA NITROGEN 68 MG/DL (7-18); BUN/CREATININE RATIO 59.6 (6.6-38.0); C-REACTIVE PROTEIN 1.38 MG/DL (0.0-0.5); CALCIUM 9.1 MG/DL (8.5-10.1); CHLORIDE 101 MMOL/L (99-107); CREATININE 1.14 MG/DL (0.40-0.90); GLUCOSE 188 MG/DL (70-104); LACTATE DEHYDROGENASE 235 U/L (81-234); MAGNESIUM 2.3 MG/DL (1.5-2.4); PHOSPHORUS 4.3 MG/DL (2.3-4.5); POTASSIUM 4.4 MMOL/L (3.5-5.1); PREALBUMIN 33.1 MG/DL (19-36); SODIUM 140 MMOL/L (135-145); TOTAL CARBON DIOXIDE 36.4 MMOL/L (24-32); TOTAL PROTEIN 6.5 G/DL (6.4-8.2); TRIGLYCERIDES 130 MG/DL (20-135); eGFR 45 ML/MIN
[2021-09-14 13:09] LABS: BASOPHILS % (AUTO) 0 % (0-1); EOSINOPHILS # (AUTO) 0.1 X10'3 (0-0.9); EOSINOPHILS % (AUTO) 0.7 % (0-6); HEMATOCRIT 40.3 % (35.0-45.0); HEMOGLOBIN 13.1 g/dl (12.0-16.0); LYMPHOCYTES # (AUTO) 0.5 X10'3 (1.1-4.8); LYMPHOCYTES % (AUTO) 2.9 % (21-51); MEAN CORPUSCULAR HEMOGLOBIN 28.2 PG (27.0-31.0); MEAN CORPUSCULAR HGB CONC 32.5 g/dL (33.0-36.5); MEAN PLATELET VOLUME 10.3 FL (7.4-10.4); MONOCYTES # (AUTO) 0.6 X10'3 (0-0.9); MONOCYTES % (AUTO) 3.6 % (2-12); NEUTROPHILS # (AUTO) 16.2 X10'3 (1.8-7.7); NEUTROPHILS % (AUTO) 92.8 % (42-75); PLATELET COUNT 159 X10'3 (140-440); RED BLOOD COUNT 4.63 X10'6 (4.20-5.60); RED CELL DISTRIBUTION WIDTH 17.4 % (11.5-14.5); WHITE BLOOD COUNT 17.5 X10'3 (4.5-11.0)
[2021-09-14 18:00] VITALS: BP 142/55
[2021-09-14] MEDS: K and/or MAG REPLACEMENT MC SCH (20:00)
[2021-09-14] MEDS: primidone 50mg tablet NG SCH (20:16)
[2021-09-14 22:00] VITALS: BP 116/53
[2021-09-14] MEDS: insulin glargine (Lantus) pen - multi-dose SQ SCH (23:49)
[2021-09-15] MEDS: hydrALAZINE 25 MG tablet NG SCH ×2 (00:10→11:29)
[2021-09-15] MEDS: thiamine 100mg/ml 2ml inj. IM SCH ×2 (00:11→11:50)
[2021-09-15 02:00] VITALS: BP 151/56
[2021-09-15] MEDS: insulin regular, human U-100 3ml vial - multi-dose SQ SCH ×4 (03:52→23:01)
[2021-09-15 06:00] VITALS: BP 128/64
--- NOTE | 2021-09-15 06:40 | NUR ---
Patient in room PCU 3014. I have received report from Janeen Vernon RN and had the opportunity to ask questions and assume patient care.
[2021-09-15 06:55] LABS: BASOPHILS % (AUTO) 0.2 % (0-1); EOSINOPHILS # (AUTO) 0.1 X10'3 (0-0.9); HEMATOCRIT 37.2 % (35.0-45.0); HEMOGLOBIN 12.3 g/dl (12.0-16.0); LYMPHOCYTES # (AUTO) 1.4 X10'3 (1.1-4.8); MEAN CORPUSCULAR HEMOGLOBIN 28.7 PG (27.0-31.0); MEAN PLATELET VOLUME 10.1 FL (7.4-10.4); MONOCYTES # (AUTO) 0.9 X10'3 (0-0.9); MONOCYTES % (AUTO) 7.1 % (2-12); NEUTROPHILS # (AUTO) 10.4 X10'3 (1.8-7.7); NEUTROPHILS % (AUTO) 80.7 % (42-75); PLATELET COUNT 170 X10'3 (140-440); RED BLOOD COUNT 4.28 X10'6 (4.20-5.60); RED CELL DISTRIBUTION WIDTH 16.9 % (11.5-14.5); WHITE BLOOD COUNT 12.8 X10'3 (4.5-11.0)
[2021-09-15 07:22] LABS: ALANINE AMINOTRANSFERASE 29 U/L (12-78); ALBUMIN 2.4 G/DL (3.4-5.0); ALBUMIN/GLOBULIN RATIO 0.6 (1.1-1.5); ALKALINE PHOSPHATASE 89 IU/L (46-116); ANION GAP 7 (8-16); ASPARTATE AMINO TRANSFERASE 25 U/L (10-37); BILIRUBIN,TOTAL 0.5 MG/DL (0.1-1.0); BLOOD UREA NITROGEN 62 MG/DL (7-18); BUN/CREATININE RATIO 62.6 (6.6-38.0); C-REACTIVE PROTEIN 1.68 MG/DL (0.0-0.5); CALCIUM 8.8 MG/DL (8.5-10.1); CHLORIDE 102 MMOL/L (99-107); CREATININE 0.99 MG/DL (0.40-0.90); GLUCOSE 167 MG/DL (70-104); LACTATE DEHYDROGENASE 219 U/L (81-234); MAGNESIUM 2.3 MG/DL (1.5-2.4); PHOSPHORUS 3.3 MG/DL (2.3-4.5); POTASSIUM 3.8 MMOL/L (3.5-5.1); SODIUM 146 MMOL/L (135-145); TOTAL CARBON DIOXIDE 37.1 MMOL/L (24-32); TOTAL PROTEIN 6.3 G/DL (6.4-8.2); eGFR 53 ML/MIN
[2021-09-15] MEDS: K and/or MAG REPLACEMENT MC SCH ×2 (08:00→20:00)
[2021-09-15 09:01] LABS: D-DIMER 2.73 MG/L FEU (0-0.50)
--- NOTE | 2021-09-15 09:15 | NUR ---
Reassessment: Pt remains A/O x 2 and confused per EMR. S/p BSS this morning with ST recs pureed food with nectar thick liquids and needs to take small bites and sips. Pt continues tolerating TF via NGT at goal rate with GRV WNL. Recommend continuing with nutrition support until pt with consistently adequate PO intake. LBM 09/13, documented with 200 mL stool output from rectal tube per I&O. Will continue to follow closely and make recommendations as appropriate. Recommendations: 1. Continue pureed diet with nectar thick liquids per ST recs 2. Continuous TF per MD using Pivot 1.5 at 43ml/hr goal; to provide 1032ml volume/day, 1548 kcals, 774ml water, and 97g protein. 3. Additional 200 mL water flush Q4H; monitor serum Na 4. PALB q Saturday/; daily scaled wts 5. Continue with nutrition support until pt consistently with adequate PO intake 6. IF pt remains unsafe for PO/with insufficient PO intake may benefit from PEG for long-term nutrition needs IF within POC Addendum: 09/15/21 at [address] Amended: Links added.
[2021-09-15 10:00] VITALS: BP 125/58
[2021-09-15] MEDS: dexamethasone 4mg/ml inj IV SCH (11:51)
[2021-09-15] MEDS: enoxaparin 30mg/0.3ml syringe SUBCUT SCH (11:51)
[2021-09-15] MEDS: furosemide 40mg/4ml inj IV SCH (11:51)
[2021-09-15] MEDS: pantoprazole 40MG/NS 100ML BAG 100 ML IV SCH (11:52)
[2021-09-15] MEDS: MVI, adult No.4 with vit. K 10 ML in dextrose 5% water 500ml 500 ML IV SCH ×2 (11:52)
[2021-09-15] MEDS: levetiracetam inj 500 MG in normal saline 100ml IV soln 100 ML IV SCH (11:53)
[2021-09-15] MEDS: POTASSIUM BICARBONATE/CIT AC 10 MEQ TABLET.EFF NG SCH (11:53)
[2021-09-15] MEDS: citalopram 20mg tablet NG SCH (11:54)
[2021-09-15] MEDS: aspirin 325mg tablet NG SCH (11:54)
[2021-09-15] MEDS: HYDROchlorothiazide 12.5mg capsule NG SCH (11:54)
[2021-09-15] MEDS: atorvastatin 20mg tablet NG SCH (11:55)
[2021-09-15] MEDS: losartan 50mg tablet NG SCH (11:55)
[2021-09-15] MEDS: QUEtiapine 25mg tablet PO SCH ×2 (11:55→22:16)
[2021-09-15] MEDS: metoprolol tartrate 25mg tablet NG SCH (11:56)
[2021-09-15] MEDS: NYSTATIN CREAM - 30GM TUBE TP SCH ×3 (11:56→21:00)
[2021-09-15] MEDS: HYDROcodone/acetaminophen 5mg/325mg tablet PO PRN (13:41)
[2021-09-15 14:00] VITALS: BP 128/50
[2021-09-15] MEDS ORDERED: acetaminophen 325mg/10.15ml oral unit dose solution PO PRN (14:59)
[2021-09-15] MEDS ORDERED: ondansetron 4mg/5ml UD cup PO PRN (14:59)
[2021-09-15] MEDS ORDERED: DEXTROSE 15 GM of carb/4 tabs (each vial/BOTTLE has 4 tablets) PO PRN ×2 (15:03→15:04)
[2021-09-15] MEDS ORDERED: guaiFENesin/DM 10ml UD oral syrup PO PRN (15:05)
[2021-09-15] MEDS ORDERED: mag hydrox/Alum hydrox/simeth 30ml oral suspension PO PRN (15:06)
[2021-09-15] MEDS ORDERED: magnesium hydroxide 30ml (MOM) UD suspension PO PRN (15:07)
[2021-09-15] MEDS: hydrALAZINE 25 MG tablet PO SCH (15:16)
[2021-09-15 18:00] VITALS: BP 151/41
--- NOTE | 2021-09-15 18:20 | NUR ---
Problems reprioritized. Patient report given, questions answered & plan of care reviewed with LOU Booker.
--- NOTE | 2021-09-15 18:23 | NUR ---
Patient in room PCU 3014. I have received report from tesha hicks and had the opportunity to ask questions and assume patient care.
[2021-09-15] MEDS: furosemide 40mg tablet PO SCH (22:16)
[2021-09-15] MEDS: metoprolol tartrate 25mg tablet PO SCH (22:19)
[2021-09-15] MEDS: levetiracetam 250mg tablet PO SCH (22:20)
[2021-09-15] MEDS: thiamine 100mg tablet PO SCH (22:20)
[2021-09-15] MEDS: primidone 50mg tablet PO SCH (22:22)
[2021-09-15] MEDS: docusate sodium 100mg/10ml UD cup PO SCH (22:23)
[2021-09-15] MEDS: aspirin 325mg tablet PO SCH (22:24)
[2021-09-15] MEDS: insulin glargine (Lantus) pen - multi-dose SQ SCH (22:59)
[2021-09-16 02:00] VITALS: BP 154/43
[2021-09-16] MEDS: HYDROcodone/acetaminophen 5mg/325mg tablet PO PRN (05:12)
[2021-09-16] MEDS: dextrose 50%-water 50ml dispensing syringe IV PRN (05:30)
[2021-09-16 06:00] VITALS: BP 154/49
--- NOTE | 2021-09-16 06:10 | NUR ---
Problems reprioritized. Patient report given, questions answered & plan of care reviewed with LOU Booker. Addendum: 09/16/21 at 1944 by Kellee Hagen RN Wrong time. Time IS 1810, NOT 0610
--- NOTE | 2021-09-16 06:24 | NUR ---
Problems reprioritized. Patient report given, questions answered & plan of care reviewed with tesha rn.
[2021-09-16 06:40] LABS: BASOPHILS % (AUTO) 0.2 % (0-1); EOSINOPHILS # (AUTO) 0.1 X10'3 (0-0.9); EOSINOPHILS % (AUTO) 0.9 % (0-6); HEMOGLOBIN 11.7 g/dl (12.0-16.0); LYMPHOCYTES # (AUTO) 1.4 X10'3 (1.1-4.8); LYMPHOCYTES % (AUTO) 9.9 % (21-51); MEAN CORPUSCULAR HEMOGLOBIN 28.2 PG (27.0-31.0); MEAN CORPUSCULAR HGB CONC 32.5 g/dL (33.0-36.5); MEAN CORPUSCULAR VOLUME 86.7 FL (78-98); MEAN PLATELET VOLUME 10.4 FL (7.4-10.4); MONOCYTES % (AUTO) 7.3 % (2-12); NEUTROPHILS # (AUTO) 11.2 X10'3 (1.8-7.7); NEUTROPHILS % (AUTO) 81.7 % (42-75); PLATELET COUNT 193 X10'3 (140-440); RED BLOOD COUNT 4.15 X10'6 (4.20-5.60); RED CELL DISTRIBUTION WIDTH 17.3 % (11.5-14.5); WHITE BLOOD COUNT 13.7 X10'3 (4.5-11.0)
--- NOTE | 2021-09-16 06:43 | NUR ---
Reviewed REMOTE INPATIENT CODER assessment no changes. Blood sugar at 62 was treated.
[2021-09-16 06:46] LABS: D-DIMER 2.45 MG/L FEU (0-0.50)
[2021-09-16 06:55] LABS: ALANINE AMINOTRANSFERASE 26 U/L (12-78); ALBUMIN 2.4 G/DL (3.4-5.0); ALBUMIN/GLOBULIN RATIO 0.6 (1.1-1.5); ALKALINE PHOSPHATASE 88 IU/L (46-116); ANION GAP 4 (8-16); ASPARTATE AMINO TRANSFERASE 25 U/L (10-37); BILIRUBIN,TOTAL 0.5 MG/DL (0.1-1.0); BLOOD UREA NITROGEN 54 MG/DL (7-18); BUN/CREATININE RATIO 61.4 (6.6-38.0); C-REACTIVE PROTEIN 2.04 MG/DL (0.0-0.5); CHLORIDE 102 MMOL/L (99-107); CREATININE 0.88 MG/DL (0.40-0.90); GLUCOSE 145 MG/DL (70-104); LACTATE DEHYDROGENASE 194 U/L (81-234); MAGNESIUM 1.8 MG/DL (1.5-2.4); POTASSIUM 3.5 MMOL/L (3.5-5.1); SODIUM 143 MMOL/L (135-145); TOTAL CARBON DIOXIDE 36.7 MMOL/L (24-32); TOTAL PROTEIN 6.2 G/DL (6.4-8.2); eGFR 61 ML/MIN
--- NOTE | 2021-09-16 06:55 | NUR ---
Patient in room PCU 3014. I have received report from LOU Booker and had the opportunity to ask questions and assume patient care.
[2021-09-16] MEDS: K and/or MAG REPLACEMENT MC SCH ×2 (07:37→20:00)
[2021-09-16] MEDS: metoprolol tartrate 25mg tablet PO SCH ×2 (07:38→19:49)
[2021-09-16] MEDS: docusate sodium 100mg/10ml UD cup PO SCH (07:43)
[2021-09-16] MEDS ORDERED: docusate sodium 100mg/10ml UD cup PO PRN (07:45)
[2021-09-16] MEDS: POTASSIUM BICARBONATE/CIT AC 10 MEQ TABLET.EFF PO SCH (08:28)
[2021-09-16] MEDS: hydrALAZINE 25 MG tablet PO SCH ×3 (08:29→16:55)
[2021-09-16] MEDS: citalopram 20mg tablet PO SCH (08:29)
[2021-09-16] MEDS: pantoprazole 40mg Tablet.DR PO SCH (08:30)
[2021-09-16] MEDS: furosemide 40mg tablet PO SCH ×2 (08:30→19:50)
[2021-09-16] MEDS: multivitamins, therapeutics tablet PO SCH (08:30)
[2021-09-16] MEDS: HYDROchlorothiazide 12.5mg capsule PO SCH (08:30)
[2021-09-16] MEDS: aspirin 325mg tablet PO SCH ×2 (08:30→19:49)
[2021-09-16] MEDS: DEXAMETHASONE 6 MG TABLET PO SCH (08:30)
[2021-09-16] MEDS: levetiracetam 250mg tablet PO SCH ×2 (08:30→19:50)
[2021-09-16] MEDS: thiamine 100mg tablet PO SCH ×2 (08:31→19:49)
[2021-09-16] MEDS: losartan 50mg tablet PO SCH (08:31)
[2021-09-16] MEDS: atorvastatin 20mg tablet PO SCH (08:31)
[2021-09-16] MEDS: NYSTATIN CREAM - 30GM TUBE TP SCH ×2 (08:31→20:00)
[2021-09-16] MEDS: enoxaparin 30mg/0.3ml syringe SUBCUT SCH (08:32)
[2021-09-16] MEDS: QUEtiapine 25mg tablet PO SCH (08:33)
[2021-09-16] MEDS: insulin regular, human U-100 3ml vial - multi-dose SQ SCH ×3 (08:40→20:02)
[2021-09-16 10:00] VITALS: BP 138/48
[2021-09-16 13:48] LABS: ABG BASE EXCESS 9.7 mmol/L (-2.0-2.0); ABG HCO3 34.6 mmol/L (22.0-26.0); ABG OXYGEN SATURATION 91.8 % (94-97); ABG PCO2 (T) 47.9 mmHg (32.0-45.0); ABG PO2 (T) 61.6 mmHg (75.0-100.0); ALLEN'S TEST POSITIVE; FCOHb 0.2 % (0.0-3.9); FMetHb 0.2 % (0.0-1.5); FO2Hb 91.4 % (94-97); TOTAL HEMOGLOBIN 13.3 G/dl (12.0-16.0)
[2021-09-16 14:00] VITALS: BP 166/51
[2021-09-16 18:00] VITALS: BP 157/56
--- NOTE | 2021-09-16 18:10 | NUR ---
Patient in room PCU 3014. I have received report from tesha hicks and had the opportunity to ask questions and assume patient care.
[2021-09-16 22:00] VITALS: BP 152/63
[2021-09-16] MEDS: insulin glargine (Lantus) pen - multi-dose SQ SCH (22:00)
[2021-09-17] MEDS: hydrALAZINE 25 MG tablet PO SCH ×3 (00:30→16:33)
[2021-09-17] MEDS: primidone 50mg tablet PO SCH ×2 (00:30→20:45)
[2021-09-17 05:05] LABS: BASOPHILS % (AUTO) 0.2 % (0-1); EOSINOPHILS # (AUTO) 0.1 X10'3 (0-0.9); HEMATOCRIT 39.4 % (35.0-45.0); HEMOGLOBIN 12.8 g/dl (12.0-16.0); LYMPHOCYTES # (AUTO) 1.3 X10'3 (1.1-4.8); LYMPHOCYTES % (AUTO) 9.5 % (21-51); MEAN CORPUSCULAR HGB CONC 32.5 g/dL (33.0-36.5); MEAN CORPUSCULAR VOLUME 86.2 FL (78-98); MEAN PLATELET VOLUME 10.5 FL (7.4-10.4); MONOCYTES % (AUTO) 6.8 % (2-12); NEUTROPHILS # (AUTO) 11.6 X10'3 (1.8-7.7); NEUTROPHILS % (AUTO) 82.5 % (42-75); PLATELET COUNT 204 X10'3 (140-440); RED BLOOD COUNT 4.57 X10'6 (4.20-5.60); RED CELL DISTRIBUTION WIDTH 17.2 % (11.5-14.5); WHITE BLOOD COUNT 14.1 X10'3 (4.5-11.0)
--- NOTE | 2021-09-17 05:14 | NUR ---
AGREE WITH ECONOMICS PROFESSOR PHYSICAL ASSESSMENT CHARTED
[2021-09-17 05:18] LABS: ALANINE AMINOTRANSFERASE 35 U/L (12-78); ALBUMIN 2.6 G/DL (3.4-5.0); ALBUMIN/GLOBULIN RATIO 0.6 (1.1-1.5); ALKALINE PHOSPHATASE 124 IU/L (46-116); ANION GAP 6 (8-16); ASPARTATE AMINO TRANSFERASE 27 U/L (10-37); BILIRUBIN,TOTAL 0.5 MG/DL (0.1-1.0); BLOOD UREA NITROGEN 59 MG/DL (7-18); BUN/CREATININE RATIO 66.3 (6.6-38.0); C-REACTIVE PROTEIN 2.28 MG/DL (0.0-0.5); CALCIUM 9.7 MG/DL (8.5-10.1); CHLORIDE 101 MMOL/L (99-107); CREATININE 0.89 MG/DL (0.40-0.90); D-DIMER 2.44 MG/L FEU (0-0.50); GLUCOSE 116 MG/DL (70-104); LACTATE DEHYDROGENASE 282 U/L (81-234); MAGNESIUM 1.7 MG/DL (1.5-2.4); PHOSPHORUS 3.5 MG/DL (2.3-4.5); POTASSIUM 3.7 MMOL/L (3.5-5.1); SODIUM 141 MMOL/L (135-145); TOTAL CARBON DIOXIDE 34.4 MMOL/L (24-32); TOTAL PROTEIN 6.9 G/DL (6.4-8.2); eGFR 60 ML/MIN
[2021-09-17 06:00] VITALS: BP 151/56
--- NOTE | 2021-09-17 06:09 | NUR ---
Problems reprioritized. Patient report given, questions answered & plan of care reviewed with tesha rn.
--- NOTE | 2021-09-17 06:20 | NUR ---
Patient in room PCU 3014. I have received report from MARVA Booker and had the opportunity to ask questions and assume patient care.
[2021-09-17] MEDS: K and/or MAG REPLACEMENT MC SCH ×2 (07:32→20:00)
[2021-09-17] MEDS: acetaminophen 325mg tablet PO PRN ×2 (07:53→20:44)
[2021-09-17] MEDS: POTASSIUM BICARBONATE/CIT AC 10 MEQ TABLET.EFF PO SCH (08:02)
[2021-09-17] MEDS: multivitamins, therapeutics tablet PO SCH (08:03)
[2021-09-17] MEDS: citalopram 20mg tablet PO SCH (08:04)
[2021-09-17] MEDS: DEXAMETHASONE 6 MG TABLET PO SCH (08:04)
[2021-09-17] MEDS: losartan 50mg tablet PO SCH (08:04)
[2021-09-17] MEDS: levetiracetam 250mg tablet PO SCH ×2 (08:04→20:44)
[2021-09-17] MEDS: furosemide 40mg tablet PO SCH ×2 (08:04→20:44)
[2021-09-17] MEDS: thiamine 100mg tablet PO SCH ×2 (08:04→20:44)
[2021-09-17] MEDS: enoxaparin 30mg/0.3ml syringe SUBCUT SCH (08:05)
[2021-09-17] MEDS: metoprolol tartrate 25mg tablet PO SCH ×2 (08:05→20:44)
[2021-09-17] MEDS: pantoprazole 40mg Tablet.DR PO SCH (08:05)
[2021-09-17] MEDS: aspirin 325mg tablet PO SCH (08:05)
[2021-09-17] MEDS: atorvastatin 20mg tablet PO SCH (08:05)
[2021-09-17] MEDS: HYDROchlorothiazide 12.5mg capsule PO SCH (08:05)
[2021-09-17] MEDS: NYSTATIN CREAM - 30GM TUBE TP SCH ×2 (08:06→20:44)
[2021-09-17] MEDS: insulin regular, human U-100 3ml vial - multi-dose SQ SCH ×3 (08:13→20:36)
[2021-09-17 10:00] VITALS: BP 155/47
[2021-09-17 14:00] VITALS: BP 143/70
[2021-09-17 18:00] VITALS: BP 145/58
--- NOTE | 2021-09-17 18:30 | NUR ---
Problems reprioritized. Patient report given, questions answered & plan of care reviewed with LOU Machuca.
[2021-09-17 22:00] VITALS: BP 105/38
[2021-09-17] MEDS: insulin glargine (Lantus) pen - multi-dose SQ SCH (22:31)
[2021-09-18 02:00] VITALS: BP 125/48
--- NOTE | 2021-09-18 06:25 | NUR ---
Problems reprioritized. Patient report given, questions answered & plan of care reviewed with rolo.
--- NOTE | 2021-09-18 06:39 | NUR ---
Patient in room PCU 3014. I have received report from Sven BLAKE and had the opportunity to ask questions and assume patient care.
[2021-09-18 07:30] VITALS: BP 147/61
[2021-09-18] MEDS: K and/or MAG REPLACEMENT MC SCH ×2 (08:00→20:00)
[2021-09-18] MEDS: NYSTATIN CREAM - 30GM TUBE TP SCH ×2 (08:00→20:00)
[2021-09-18] MEDS ORDERED: aspirin 81mg, enteric-coated 1 TAB TABLET.DR PO SCH (08:00)
--- NOTE | 2021-09-18 08:50 | NUR ---
Reassessment: Pt remains A/O x 2 and confused per EMR. S/p BSS this morning with ST recs MM5 and thin liquids, though pt w/ mostly 0% intake of meals. Pt continues tolerating TF via NGT at goal rate with GRV WNL. Recommend continuing with nutrition support until pt with consistently adequate PO intake. LBM 09/17, documented with 200 mL stool output from rectal tube per I&O. 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 Will continue to monitor. Recommendations: 1. Continue MM5 thin liquids per ST recs; remove Carb control restriction 2. Continuous TF per MD using Pivot 1.5 at 43ml/hr goal; to provide 1032ml volume/day, 1548 kcals, 774ml water, and 97g protein. 3. Additional 200 mL water flush Q4H; monitor serum Na 4. PALB q Saturday/; daily scaled wts 5. Continue with nutrition support until pt consistently with adequate PO intake 6. IF pt remains unsafe for PO/with insufficient PO intake may benefit from PEG for long-term nutrition needs IF within POC Addendum: 09/18/21 at [address] Amended: Links added.
[2021-09-18] MEDS: POTASSIUM BICARBONATE/CIT AC 10 MEQ TABLET.EFF PO SCH (09:38)
[2021-09-18] MEDS: levetiracetam 250mg tablet PO SCH (09:38)
[2021-09-18] MEDS: HYDROchlorothiazide 12.5mg capsule PO SCH (09:38)
[2021-09-18] MEDS: thiamine 100mg tablet PO SCH (09:39)
[2021-09-18] MEDS: metoprolol tartrate 25mg tablet PO SCH (09:40)
[2021-09-18] MEDS: losartan 50mg tablet PO SCH (09:40)
[2021-09-18] MEDS: pantoprazole 40mg Tablet.DR PO SCH (09:41)
[2021-09-18] MEDS: furosemide 40mg tablet PO SCH (09:41)
[2021-09-18] MEDS: DEXAMETHASONE 6 MG TABLET PO SCH (09:41)
[2021-09-18] MEDS: atorvastatin 20mg tablet PO SCH (09:41)
[2021-09-18] MEDS: hydrALAZINE 25 MG tablet PO SCH ×2 (09:42)
[2021-09-18] MEDS: multivitamins, therapeutics tablet PO SCH (09:42)
[2021-09-18] MEDS: enoxaparin 30mg/0.3ml syringe SUBCUT SCH (09:43)
[2021-09-18] MEDS: citalopram 20mg tablet PO SCH (09:43)
[2021-09-18] MEDS: insulin regular, human U-100 3ml vial - multi-dose SQ SCH ×3 (10:01→20:18)
[2021-09-18] MEDS: acetaminophen 325mg tablet PO PRN (10:02)
[2021-09-18 11:00] VITALS: BP 116/42
--- NOTE | 2021-09-18 11:32 | NUR ---
f/u: TC from RN who states MD would like to titrate down TF as pt has apparently had some increase in PO intake today, though most recent documentation is mostly 0%. RN states that pt had about 50-75% of tray this morning. RD recommends waiting until PO trends are more consistent before reducing TF, though will adjust rate per MD recommendations in hopes of stimulating appetite. Recommendations: 1. Continue MM5 thin liquids per ; remove Carb control restriction 2. Continuous TF per MD using Pivot 1.5 at 25ml/hr goal; to provide 600ml volume/day, 900 kcals, 455ml water, and 56g protein. 3. Additional 200 mL water flush Q4H; monitor serum Na 4. PALB q Saturday/; daily scaled wts 5. Continue with nutrition support until pt consistently with adequate PO intake 6. IF pt remains unsafe for PO/with insufficient PO intake may benefit from PEG for long-term nutrition needs IF within POC Addendum: 09/18/21 at [address] Amended: Links added.
[2021-09-18 15:37] VITALS: BP 123/42
[2021-09-18] MEDS ORDERED: acetaminophen 325mg/10.15ml oral unit dose solution NG PRN ×2 (15:43→15:45)
[2021-09-18] MEDS ORDERED: DEXTROSE 15 GM of carb/4 tabs (each vial/BOTTLE has 4 tablets) NG PRN ×2 (15:45→15:46)
[2021-09-18] MEDS ORDERED: docusate sodium 100mg/10ml UD cup NG PRN (15:46)
[2021-09-18] MEDS ORDERED: guaiFENesin/DM 10ml UD oral syrup NG PRN (15:47)
[2021-09-18] MEDS ORDERED: magnesium hydroxide 30ml (MOM) UD suspension NG PRN (15:50)
[2021-09-18] MEDS ORDERED: mag hydrox/Alum hydrox/simeth 30ml oral suspension NG PRN (15:50)
[2021-09-18] MEDS ORDERED: ondansetron 4mg/5ml UD cup NG PRN (15:51)
[2021-09-18] MEDS: hydrALAZINE 25 MG tablet NG SCH (16:05)
[2021-09-18 18:00] VITALS: BP 116/40
[2021-09-18] MEDS: lactose-reduced food (Ensure Enlive) - 237ml bottle PO SCH (18:00)
--- NOTE | 2021-09-18 18:30 | NUR ---
Patient in room PCU 3014. I have received report from rolo and had the opportunity to ask questions and assume patient care.
--- NOTE | 2021-09-18 18:33 | NUR ---
Problems reprioritized. Patient report given, questions answered & plan of care reviewed with Sven BLAKE.
[2021-09-18] MEDS: metoprolol tartrate 25mg tablet NG SCH (19:50)
[2021-09-18] MEDS: levetiracetam 250mg tablet NG SCH (19:51)
[2021-09-18] MEDS: furosemide 40mg tablet NG SCH (19:51)
[2021-09-18] MEDS: thiamine 100mg tablet NG SCH (19:52)
[2021-09-18 22:00] VITALS: BP 141/57
[2021-09-18] MEDS: insulin glargine (Lantus) pen - multi-dose SQ SCH (22:08)
[2021-09-18] MEDS: primidone 50mg tablet NG SCH (22:19)
[2021-09-19 02:00] VITALS: BP 138/60
[2021-09-19 06:00] VITALS: BP 138/62
--- NOTE | 2021-09-19 06:13 | NUR ---
Problems reprioritized. Patient report given, questions answered & plan of care reviewed with conrad.
--- NOTE | 2021-09-19 06:20 | NUR ---
Patient in room PCU 3014. I have received report from Sven BLAKE and had the opportunity to ask questions and assume patient care.
[2021-09-19 06:52] LABS: BASOPHILS % (AUTO) 0.2 % (0-1); EOSINOPHILS # (AUTO) 0.1 X10'3 (0-0.9); EOSINOPHILS % (AUTO) 1.1 % (0-6); HEMATOCRIT 38.3 % (35.0-45.0); HEMOGLOBIN 12.6 g/dl (12.0-16.0); LYMPHOCYTES # (AUTO) 1.7 X10'3 (1.1-4.8); LYMPHOCYTES % (AUTO) 13.1 % (21-51); MEAN CORPUSCULAR HEMOGLOBIN 28.4 PG (27.0-31.0); MEAN CORPUSCULAR VOLUME 85.8 FL (78-98); MONOCYTES # (AUTO) 0.9 X10'3 (0-0.9); NEUTROPHILS # (AUTO) 10.4 X10'3 (1.8-7.7); NEUTROPHILS % (AUTO) 78.6 % (42-75); PLATELET COUNT 208 X10'3 (140-440); RED BLOOD COUNT 4.46 X10'6 (4.20-5.60); RED CELL DISTRIBUTION WIDTH 17.5 % (11.5-14.5); WHITE BLOOD COUNT 13.2 X10'3 (4.5-11.0)
[2021-09-19] MEDS: lactose-reduced food (Ensure Enlive) - 237ml bottle PO SCH ×3 (08:00→18:00)
[2021-09-19] MEDS: lansoprazole 15mg solutab NG SCH (08:00)
[2021-09-19] MEDS: K and/or MAG REPLACEMENT MC SCH ×2 (08:00→20:00)
[2021-09-19] MEDS: hydrALAZINE 25 MG tablet NG SCH ×3 (08:00→16:57)
[2021-09-19] MEDS: NYSTATIN CREAM - 30GM TUBE TP SCH ×2 (08:00→20:04)
[2021-09-19] MEDS: enoxaparin 30mg/0.3ml syringe SUBCUT SCH (09:35)
[2021-09-19] MEDS: MULTIVIT-MIN/FERROUS GLUCONATE 9 MG/15 ML LIQUID NG SCH (09:36)
[2021-09-19] MEDS: furosemide 40mg tablet NG SCH ×2 (09:36→19:45)
[2021-09-19] MEDS: metoprolol tartrate 25mg tablet NG SCH ×2 (09:37→19:45)
[2021-09-19] MEDS: atorvastatin 20mg tablet NG SCH (09:37)
[2021-09-19] MEDS: POTASSIUM BICARBONATE/CIT AC 10 MEQ TABLET.EFF NG SCH (09:39)
[2021-09-19] MEDS: levetiracetam 250mg tablet NG SCH ×2 (09:39→19:45)
[2021-09-19] MEDS: aspirin 81mg tab.chew NG SCH (09:39)
[2021-09-19] MEDS: DEXAMETHASONE 6 MG TABLET NG SCH (09:40)
[2021-09-19] MEDS: losartan 50mg tablet NG SCH (09:40)
[2021-09-19] MEDS: citalopram 20mg tablet NG SCH (09:41)
[2021-09-19] MEDS: thiamine 100mg tablet NG SCH ×2 (09:41→19:46)
[2021-09-19 11:00] VITALS: BP 135/42
--- NOTE | 2021-09-19 11:35 | NUR ---
Patient alert and oriented. Pt has a sitter due to being in isolation and requiring tube feeding.
[2021-09-19] MEDS ORDERED: MESSAGE TO PHARMACY PO ONE (14:35)
[2021-09-19] MEDS ORDERED: glucagon, human recombinant 1mg kit SUBCUT PRN (14:35)
[2021-09-19] MEDS ORDERED: dextrose 50%-water 50ml dispensing syringe IV PRN ×2 (14:35)
[2021-09-19] MEDS ORDERED: DEXTROSE 15 GM of carb/4 tabs (each vial/BOTTLE has 4 tablets) PO PRN ×2 (14:35)
[2021-09-19] MEDS: HYDROchlorothiazide 12.5mg capsule NG SCH (14:47)
[2021-09-19] MEDS: HYDROcodone/acetaminophen 5mg/325mg tablet PO PRN (14:48)
[2021-09-19 15:00] VITALS: BP 131/55
[2021-09-19 18:00] VITALS: BP 139/52
--- NOTE | 2021-09-19 18:30 | NUR ---
Patient in room PCU 3014. I have received report from conrad and had the opportunity to ask questions and assume patient care.
--- NOTE | 2021-09-19 18:54 | NUR ---
Problems reprioritized. Patient report given, questions answered & plan of care reviewed with Sven DURHAM, patient stable at transfer of care.
[2021-09-19] MEDS: insulin Lispro (HumaLOG) vial - multi-dose SQ SCH ×2 (19:37→21:10)
[2021-09-19] MEDS: insulin glargine (Lantus) pen - multi-dose SQ SCH (21:06)
[2021-09-19] MEDS: primidone 50mg tablet NG SCH (21:14)
[2021-09-19 22:00] VITALS: BP 124/50
[2021-09-20 02:00] VITALS: BP 146/41
[2021-09-20 06:00] VITALS: BP 158/36
--- NOTE | 2021-09-20 06:00 | NUR ---
Patient in room PCU 3014. I have received report from LOU Machuca and had the opportunity to ask questions and assume patient care.
--- NOTE | 2021-09-20 06:15 | NUR ---
Problems reprioritized. Patient report given, questions answered & plan of care reviewed with abigal.
[2021-09-20 06:48] LABS: BASOPHILS % (AUTO) 0.2 % (0-1); EOSINOPHILS # (AUTO) 0.2 X10'3 (0-0.9); EOSINOPHILS % (AUTO) 1.8 % (0-6); HEMATOCRIT 33.9 % (35.0-45.0); HEMOGLOBIN 11.4 g/dl (12.0-16.0); LYMPHOCYTES # (AUTO) 1.7 X10'3 (1.1-4.8); MEAN CORPUSCULAR HEMOGLOBIN 28.8 PG (27.0-31.0); MEAN CORPUSCULAR HGB CONC 33.7 g/dL (33.0-36.5); MEAN CORPUSCULAR VOLUME 85.5 FL (78-98); MEAN PLATELET VOLUME 9.8 FL (7.4-10.4); MONOCYTES # (AUTO) 0.7 X10'3 (0-0.9); MONOCYTES % (AUTO) 6.4 % (2-12); NEUTROPHILS # (AUTO) 7.6 X10'3 (1.8-7.7); NEUTROPHILS % (AUTO) 74.6 % (42-75); PLATELET COUNT 202 X10'3 (140-440); RED BLOOD COUNT 3.97 X10'6 (4.20-5.60); WHITE BLOOD COUNT 10.2 X10'3 (4.5-11.0)
[2021-09-20 07:05] LABS: D-DIMER 1.86 MG/L FEU (0-0.50)
[2021-09-20 07:19] LABS: ALBUMIN 2.4 G/DL (3.4-5.0); ANION GAP 9 (8-16); BLOOD UREA NITROGEN 83 MG/DL (7-18); BUN/CREATININE RATIO 77.6 (6.6-38.0); C-REACTIVE PROTEIN 1.65 MG/DL (0.0-0.5); CALCIUM 8.9 MG/DL (8.5-10.1); CHLORIDE 97 MMOL/L (99-107); CREATININE 1.07 MG/DL (0.40-0.90); GLUCOSE 72 MG/DL (70-104); LACTATE DEHYDROGENASE 189 U/L (81-234); PHOSPHORUS 3.8 MG/DL (2.3-4.5); SODIUM 139 MMOL/L (135-145); TOTAL CARBON DIOXIDE 32.8 MMOL/L (24-32); eGFR 49 ML/MIN
[2021-09-20] MEDS: hydrALAZINE 25 MG tablet NG SCH ×3 (08:00→17:12)
[2021-09-20] MEDS: HYDROchlorothiazide 12.5mg capsule NG SCH (08:00)
[2021-09-20] MEDS: DEXAMETHASONE 6 MG TABLET NG SCH (08:00)
[2021-09-20] MEDS: POTASSIUM BICARBONATE/CIT AC 10 MEQ TABLET.EFF NG SCH (08:00)
[2021-09-20] MEDS: lactose-reduced food (Ensure Enlive) - 237ml bottle PO SCH ×3 (08:00→18:00)
[2021-09-20] MEDS: levetiracetam 250mg tablet NG SCH ×2 (08:00→20:02)
[2021-09-20] MEDS: losartan 50mg tablet NG SCH (08:00)
[2021-09-20] MEDS: atorvastatin 20mg tablet NG SCH (08:00)
[2021-09-20] MEDS: lansoprazole 15mg solutab NG SCH (08:00)
[2021-09-20] MEDS: aspirin 81mg tab.chew NG SCH (08:00)
[2021-09-20] MEDS: metoprolol tartrate 25mg tablet NG SCH ×2 (08:00→20:03)
[2021-09-20] MEDS: citalopram 20mg tablet NG SCH (08:00)
[2021-09-20] MEDS: enoxaparin 30mg/0.3ml syringe SUBCUT SCH (08:00)
[2021-09-20] MEDS: K and/or MAG REPLACEMENT MC SCH ×2 (08:00→20:00)
[2021-09-20] MEDS: furosemide 40mg tablet NG SCH ×2 (08:00→20:02)
[2021-09-20] MEDS: NYSTATIN CREAM - 30GM TUBE TP SCH ×2 (08:00→21:30)
[2021-09-20] MEDS: MULTIVIT-MIN/FERROUS GLUCONATE 9 MG/15 ML LIQUID NG SCH (09:45)
[2021-09-20] MEDS: thiamine 100mg tablet NG SCH ×2 (09:48→20:02)
[2021-09-20 11:00] VITALS: BP 137/35
[2021-09-20 15:00] VITALS: BP 146/47
[2021-09-20] MEDS: HYDROcodone/acetaminophen 5mg/325mg tablet PO PRN ×2 (17:12→22:18)
[2021-09-20 18:00] VITALS: BP 152/41
--- NOTE | 2021-09-20 18:00 | NUR ---
Problems reprioritized. Patient report given, questions answered & plan of care reviewed with LOU Booker. Pt resting comfortably in bed, no signs of acute distress, VSS, call light within reach, answered all questions. Sitter in room. Addendum: 09/20/21 at 1839 by Erum Núñez RN Pt refused all morning medications, MD Cano made aware during rounds. Pt upset about nectar thickened liquids, plans for speech re-eval.
--- NOTE | 2021-09-20 18:30 | NUR ---
Patient in room PCU 3014. I have received report from Erum BLAKE and had the opportunity to ask questions and assume patient care.
[2021-09-20] MEDS: insulin Lispro (HumaLOG) vial - multi-dose SQ SCH ×2 (19:51→21:22)
[2021-09-20] MEDS: insulin glargine (Lantus) pen - multi-dose SQ SCH (21:21)
[2021-09-20 22:00] VITALS: BP 120/54
[2021-09-20] MEDS: primidone 50mg tablet NG SCH (22:19)
--- NOTE | 2021-09-21 00:37 | NUR ---
hydrALAZINE not given, pt BP 132/46 MAP 63
[2021-09-21 02:00] VITALS: BP 148/48
[2021-09-21] MEDS: HYDROcodone/acetaminophen 5mg/325mg tablet PO PRN ×3 (02:42→15:58)
--- NOTE | 2021-09-21 02:51 | NUR ---
Reviewed SMART ENERGY SPECIALIST assessment and in agreement. Ddimer has improved from 2.73 decreased to 1.86, O2 95% ON 4L NC. VSS.
[2021-09-21 06:00] VITALS: BP 141/49
--- NOTE | 2021-09-21 06:00 | NUR ---
Patient in room PCU 3014. I have received report from LOU Booker and had the opportunity to ask questions and assume patient care.
--- NOTE | 2021-09-21 06:23 | NUR ---
Problems reprioritized. Patient report given, questions answered & plan of care reviewed with Erum RN.
[2021-09-21] MEDS: MULTIVIT-MIN/FERROUS GLUCONATE 9 MG/15 ML LIQUID NG SCH (08:00)
[2021-09-21] MEDS: lactose-reduced food (Ensure Enlive) - 237ml bottle PO SCH ×2 (08:00→13:21)
[2021-09-21] MEDS: POTASSIUM BICARBONATE/CIT AC 10 MEQ TABLET.EFF NG SCH (08:00)
[2021-09-21] MEDS: K and/or MAG REPLACEMENT MC SCH (08:00)
[2021-09-21] MEDS: citalopram 20mg tablet NG SCH (09:03)
[2021-09-21] MEDS: levetiracetam 250mg tablet NG SCH (09:03)
[2021-09-21] MEDS: DEXAMETHASONE 6 MG TABLET NG SCH (09:03)
[2021-09-21] MEDS: metoprolol tartrate 25mg tablet NG SCH (09:04)
[2021-09-21] MEDS: furosemide 40mg tablet NG SCH (09:04)
[2021-09-21] MEDS: hydrALAZINE 25 MG tablet NG SCH ×2 (09:05)
[2021-09-21] MEDS: atorvastatin 20mg tablet NG SCH (09:09)
[2021-09-21] MEDS: lansoprazole 15mg solutab NG SCH (09:09)
[2021-09-21] MEDS: HYDROchlorothiazide 12.5mg capsule NG SCH (09:09)
[2021-09-21] MEDS: losartan 50mg tablet NG SCH (09:09)
[2021-09-21] MEDS: aspirin 81mg tab.chew NG SCH (09:09)
[2021-09-21] MEDS: thiamine 100mg tablet NG SCH (09:10)
[2021-09-21] MEDS: enoxaparin 30mg/0.3ml syringe SUBCUT SCH (09:10)
--- NOTE | 2021-09-21 10:55 | NUR ---
F/u 09/21: Pt NG discontinued 09/19 per EMR w/ PO remaining poor continues to fluctuate ~37.5% avg meals w/ 0% at times past 3 days only meeting 62% kcals and 54% protein estimated needs. No longer w/ sitter present and moderate assistance at meals pt remains AOx2/confused per EMR. Ensure Enlive ONS active since 8 PM documented as 0-25% vs refusals however pt has actually not received ONS since dietary not aware of order; first Ensure Enlive to be sent [facility] today. Noted Glu 301mg/dl at 21:02 last night w/ no further Glu tests in EMR remains on dexamethasone; RD d/w RN who reports AM labs pending at this time. LBM 09/19 w/ rectal tube removed per EMR. Will monitor for ONS acceptance and further nutrition intervention needs. Recommendations: 1. Continue pureed/nectar thick diet per FLIGHT OPERATIONS INSPECTOR/MD recs; assistance w/ meals 2. Ensure Enlive TIDWM; encourage PO meals/ONS 3. IF pt PO remains insufficient or declines further consider supplemental EN to meet nutrition needs 4. bowel care per rx 5. weekly wts Addendum: 09/21/21 at [address] Amended: Links added.
[2021-09-21 11:00] VITALS: BP 150/51
[2021-09-21] MEDS ORDERED: acetaminophen 325mg tablet PO PRN ×2 (11:04)
[2021-09-21] MEDS ORDERED: atorvastatin 20mg tablet PO SCH (11:05)
[2021-09-21] MEDS ORDERED: aspirin 81mg tab.chew PO SCH (11:05)
[2021-09-21] MEDS ORDERED: citalopram 20mg tablet PO SCH (11:05)
[2021-09-21] MEDS ORDERED: docusate sod 100mg capsule PO PRN (11:06)
[2021-09-21] MEDS ORDERED: guaiFENesin/DM 10ml UD oral syrup PO PRN (11:06)
[2021-09-21] MEDS ORDERED: furosemide 40mg tablet PO SCH (11:06)
[2021-09-21] MEDS ORDERED: hydrALAZINE 25 MG tablet PO SCH (11:07)
[2021-09-21] MEDS ORDERED: lansoprazole 15mg solutab PO SCH (11:07)
[2021-09-21] MEDS ORDERED: HYDROchlorothiazide 12.5mg capsule PO SCH (11:07)
[2021-09-21] MEDS ORDERED: levetiracetam 250mg tablet PO SCH (11:08)
[2021-09-21] MEDS ORDERED: magnesium hydroxide 30ml (MOM) UD suspension PO PRN (11:08)
[2021-09-21] MEDS ORDERED: losartan 50mg tablet PO SCH (11:08)
[2021-09-21] MEDS ORDERED: metoprolol tartrate 25mg tablet PO SCH (11:10)
[2021-09-21] MEDS ORDERED: mag hydrox/Alum hydrox/simeth 30ml oral suspension PO PRN (11:10)
[2021-09-21] MEDS ORDERED: thiamine 100mg tablet PO SCH (11:11)
[2021-09-21] MEDS ORDERED: multivitamins, therapeutics tablet PO SCH (11:11)
[2021-09-21] MEDS ORDERED: POTASSIUM BICARBONATE/CIT AC 10 MEQ TABLET.EFF PO SCH (11:12)
[2021-09-21] MEDS ORDERED: primidone 50mg tablet PO SCH (11:12)
[2021-09-21] MEDS ORDERED: ondansetron 4mg rapidly disintigrating tab PO PRN (11:13)
[2021-09-21] MEDS ORDERED: DEXAMETHASONE 6 MG TABLET PO SCH (11:14)
[2021-09-21] MEDS: NYSTATIN CREAM - 30GM TUBE TP SCH (13:00)
[2021-09-21 15:00] VITALS: BP 112/35
--- NOTE | 2021-09-21 15:30 | NUR ---
DISCHARGE NOTE: MD Cano rounded on pt this morning, ok'd for dc today. Plans to transfer to [facility] with pickup time at 1600. Pt's daughter Marie at bedside, ok with plan. Called [facility] and spoke to LOU Patrick and provided report, answered all questions. MRSA swab completed and walked to lab. Reviewed pt belongings with pt's daughter, daughter will take soiled clothes home and has left new clothes for pt to take to [facility]. Pt placed on brief for transfer d/t occasional incontinence; nystatin cream applied. Pt worked with PT today. PICC line and telebox removed. Addendum: 09/21/21 at 1725 by Erum Núñez RN Pt picked up, transferred to [facility] about 1630. Pt in no signs of acute distress, gave PRN pain meds per pt request. Daughter Marie will meet pt at facility.
[2021-09-21 15:58] VITALS: BP_SYST 112
== END 2021-09-21 16:00 | DRG 177 ==
LOC: ER 07:53 → ED HOLD 14:49 → ORTHO 4S 19:20 → CICU 2S 09-03 16:30 → PCU 3S 09-13 15:13
PROVIDERS: ADMIT Family Medicine; ATTEND Family Medicine
PROC: XW033E5 Introduction of Remdesivir Anti-infective into Peripheral Vein, Percutaneous Approach, New Technology Group 5 (ICD-10-PCS; principal; 2021-08-31)
PROC: B32T1ZZ Computerized Tomography (CT Scan) of Left Pulmonary Artery using Low Osmolar Contrast (ICD-10-PCS; 2021-09-01)
PROC: B3201ZZ Computerized Tomography (CT Scan) of Thoracic Aorta using Low Osmolar Contrast (ICD-10-PCS; 2021-09-01)
PROC: B32S1ZZ Computerized Tomography (CT Scan) of Right Pulmonary Artery using Low Osmolar Contrast (ICD-10-PCS; 2021-09-01)
PROC: 5A0935A Assistance with Respiratory Ventilation, Less than 24 Consecutive Hours, High Flow/Velocity Cannula (ICD-10-PCS; 2021-09-03)
PROC: 02HV33Z Insertion of Infusion Device into Superior Vena Cava, Percutaneous Approach (ICD-10-PCS; 2021-09-05)
PROC: B548ZZA Ultrasonography of Superior Vena Cava, Guidance (ICD-10-PCS; 2021-09-05)
PROC: 4A10X4Z Monitoring of Central Nervous Electrical Activity, External Approach (ICD-10-PCS; 2021-09-07)
PROC: 4A10X4Z Monitoring of Central Nervous Electrical Activity, External Approach (ICD-10-PCS; 2021-09-09)
PROC: 4A10X4Z Monitoring of Central Nervous Electrical Activity, External Approach (ICD-10-PCS; 2021-09-10)
PROC: 5A0935A Assistance with Respiratory Ventilation, Less than 24 Consecutive Hours, High Flow/Velocity Cannula (ICD-10-PCS; 2021-09-11)
PROC: 5A0935A Assistance with Respiratory Ventilation, Less than 24 Consecutive Hours, High Flow/Velocity Cannula (ICD-10-PCS; 2021-09-12)
PROC: 5A09357 Assistance with Respiratory Ventilation, Less than 24 Consecutive Hours, Continuous Positive Airway Pressure (ICD-10-PCS; 2021-09-12)
PROC: 5A0945A Assistance with Respiratory Ventilation, 24-96 Consecutive Hours, High Flow/Velocity Cannula (ICD-10-PCS; 2021-09-13)
DX: U07.1 COVID-19 (principal); J12.82 Pneumonia due to coronavirus disease 2019; J96.21 Acute and chronic respiratory failure with hypoxia; N17.0 Acute kidney failure with tubular necrosis; N39.0 Urinary tract infection, site not specified; J44.0 Chronic obstructive pulmonary disease with (acute) lower respiratory infection; E87.4 Mixed disorder of acid-base balance; G93.40 Encephalopathy, unspecified; J44.1 Chronic obstructive pulmonary disease with (acute) exacerbation; E87.1 Hypo-osmolality and hyponatremia; E87.0 Hyperosmolality and hypernatremia; E11.65 Type 2 diabetes mellitus with hyperglycemia; G40.909 Epilepsy, unspecified, not intractable, without status epilepticus; G89.29 Other chronic pain; I95.9 Hypotension, unspecified; M19.90 Unspecified osteoarthritis, unspecified site; M54.9 Dorsalgia, unspecified; F03.90 Unspecified dementia, unspecified severity, without behavioral disturbance, psychotic disturbance, mood disturbance, and anxiety; R19.7 Diarrhea, unspecified; R94.01 Abnormal electroencephalogram [EEG]; R79.89 Other specified abnormal findings of blood chemistry; B96.20 Unspecified Escherichia coli [E. coli] as the cause of diseases classified elsewhere; E78.5 Hyperlipidemia, unspecified; G25.0 Essential tremor; I10 Essential (primary) hypertension; Z79.899 Other long term (current) drug therapy; Z86.73 Personal history of transient ischemic attack (TIA), and cerebral infarction without residual deficits; Z28.310 Unvaccinated for COVID-19; Z88.8 Allergy status to other drugs, medicaments and biological substances; Z79.82 Long term (current) use of aspirin; Z78.1 Physical restraint status; Z95.0 Presence of cardiac pacemaker; R68.0 Hypothermia, not associated with low environmental temperature
CPT/HCPCS: 36410; 36415; 36569; 36600; 70450; 71045; 71275; 74018; 76937; 76942; 80048; 80053; 81001; 82140; 82607; 82803; 82948; 83036; 83605; 83615; 83735; 84100; 84132; 84134; 84145; 84443; 84478; 85007; 85018; 85025; 85379; 86140; 86592; 87040; 87077; 87081; 87088; 87186; 87635; 92508; 92616; 93005; 93306; 93970; 94640; 94660; 94760; 94799; 95812; 95816; 96372; 96374; 97110; 97162; 97530; 97535; 99285; A4615; A5200; A6213; A6250; A6258; A6449; C1751; C9113; C9803; G0378; J0360; J0696; J1100; J1650; J1815; J1940; J1953; J1956; J2060; J2270; J2543; J2997; J3411; J3480; J3486; J3490; J7030; J7040; J7042; J7060; J8540; P9045; Q9967